=== PATIENT | female | born 1935 | race Caucasian/White ===

== ENCOUNTER 2016-09-15 09:27 | Inpatient (IN) ==
[2016-09-15] MEDS ORDERED: ROCEPHIN 1 GM/NS 1 GM/50 ML IVPB IV ONE (10:22)
[2016-09-15] MEDS ORDERED: NS 1,000 ML IV ONE (10:22)
[2016-09-15] MEDS ORDERED: ZITHROMAX 500 MG/NS 500 MG/250 ML IVPB IV ONE (10:22)
[2016-09-15 10:24] LABS: INR 1.04; PTT 30.3 Seconds (22.0-36.0)
[2016-09-15 10:26] LABS: BASO% 0.2 % (0.0-0.8); EOS# 0.01 X1000 (0.0-0.7); EOS% 0.1 % (0.0-10.0); HEMATOCRIT 39.1 % (37.0-47.0); HEMOGLOBIN 12.7 g/dL (12.0-16.0); IMM GRAN# 0.05 X1000 (0.0-0.04); IMM GRAN% 0.3 % (0.0-0.5); LYMPH# 0.64 X1000 (1.2-3.4); LYMPH% 4.1 % (20.5-51.1); MANUAL DIFF NEEDED? NO; MCH 32.6 PG (27-31); MCHC 32.5 g/dL (33-37); MCV 100.3 FL (81-99); MONO# 1.52 X1000 (0.11-0.59); MONO% 9.8 % (1.7-9.3); MPV 10.7 FL (7.4-10.4); NEUT% 85.5 % (42.2-75.2); PLT 275 X1000 (130-400)
[2016-09-15] MEDS ORDERED: XOPENEX NEB INH ONE (10:28)
[2016-09-15 10:30] LABS: CALCIUM 9.6 mg/dL (8.8-10.2); MAGNESIUM 1.4 mg/dL (1.5-2.7); POTASSIUM 4.5 mmol/L (3.5-5.1); TOTAL BILIRUBIN 0.6 mg/dL (0.20-1.00)
[2016-09-15] MEDS ORDERED: NS NEB INH SCH (10:30)
[2016-09-15 10:46] LABS: BLOOD TYPE ARTERIAL; PCO2(98.6) 43 mmHg (35-45); PO2(98.6) 85 mmHg (60-100); SAMPLE BLOOD; pH(98.6) 7.24 (7.35-7.45)
[2016-09-15 10:47] LABS: ALLEN TEST YES; BE -8.6 mmoll (-3.0-3.0); DRAW SITE L RADIAL; METHB 0.8 % (0.0-1.5); MODALITY CANNULA; O2(CT) 15.9 mL/dL (15.0-23.0); SAO2 99.5 % (95.0-100.0); THB 11.8 g/dL (11.5-17.4)
[2016-09-15 10:53] LABS: CK INDEX 1.1 (0.0-2.5); CK-MB 2.91 ng/mL (0.0-5.0)
--- NOTE | 2016-09-15 11:22 | Diag Imaging Result Document ---
PROCEDURE NAME: CHEST-2 VIEWS - 09/15/2016 FRONTAL AND LATERAL CHEST, TWO VIEWS: COMPARISON: 03/28/2015 FINDINGS: Poor inspiratory effort. The heart is borderline mildly prominent. There is basilar atelectasis or infiltrates. Findings could even represent fibrosis. No effusions. IMPRESSION: 1. Increased markings in the lung bases representing atelectasis, infiltrates, or fibrosis. 2. Mild pulmonary edema.
--- NOTE | 2016-09-15 12:44 | PROVIDER DOCUMENTATION ---
This chart was entered by Denise Cowan Scribe, acting as scribe for Cornelius Brar MD. HPI-Respiratory General - General Chief Complaint: Possible Sepsis-D Stated Complaint: SOB Time Seen by Provider: 09/15/16 10:15 Source: patient Allergies/Adverse Reactions: Patient Allergies Allergy/AdvReac Type Severity Reaction Status Date / Time latex Allergy RASH Verified 09/15/16 09:48 povidone-iodine Allergy RASH Verified 09/15/16 09:48 [From Betadine] soap * [From Betadine] Allergy RASH Verified 09/15/16 09:48 Sulfa (Sulfonamide Allergy RASH Verified 09/15/16 09:48 Antibiotics) Home Medications: Home Medication List Medication Instructions Recorded Confirmed Last Taken Type ATORVAstatin [Lipitor] 40 mg PO QHS 10/15/14 09/15/16 09/14/16 19:00 History Carvedilol 6.25 mg PO BID 10/15/14 09/15/16 09/15/16 08:00 History Isosorbide Mononitrate E.r. [Imdur] 30 mg PO DAILY 10/15/14 09/15/16 09/15/16 08 :00 History Spironolactone 25 mg PO DAILY 10/15/14 09/15/16 09/15/16 08:00 History Ticagrelor [Brilinta] 90 mg PO BID 10/15/14 09/15/16 09/15/16 08:00 History Aspirin 81 mg PO DAILY #30 chewtab 10/25/14 09/15/16 09/15/16 08:00 Rx Acetaminophen with Codeine 1 each PO Q6HR PRN 09/15/16 09/15/16 09/15/16 08:00 History [Acetaminophen-Cod #4 Tablet] Glipizide 5 mg PO 09/15/16 09/14/16 19:00 History Iron Carbonyl/Vit C/Vit B12/FA 1 each PO DIRECTED 09/15/16 09/15/16 Unknown History [Icar-C Plus] Lorazepam [Ativan] 0.5 mg PO TID PRN 09/15/16 09/15/16 09/15/16 08:00 History Nitroglycerin Sl [Nitroglycerin] 0.4 mg SL PRN PRN 09/15/16 09/15/16 Unknown History - History of Present Illness-Resp Nature of Presenting Problem: Pt is 80 y/o F presents to the ED via EMS with SOB, fatigue, cough and weakness. 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 Pt states the symptoms have been present for one week. Pt states green sputum with cough. Pt states recently seeing PCP and PCP increased diabetic meds. Pt denies F. Quality of Pain: reports: aching Severity in ED: reports: mild Onset/Duration: reports: 1 week ago Timing: reports: still present Exposure: reports: unknown cause Cough Quality/Degree: reports: moderate, productive cough, sputum (green) Current Respiratory Medication Therapy: Initiated see nurses note Modifying Factors: improves with: nothing Associated Symptoms: reports: cough, shortness of breath, other (weakness and fatigue). denies: chest pain/soreness, dizziness, earache, facial pain, fever/ chills, flu-like symptoms, headache, heart racing, hurts to breathe, hyperventilating, lightheadedness, muscle/bodyaches, nasal congestion, nasal drainage, sinus pain, short of breath, sore throat, sweaty, wheezing Similar Symptoms Previously?: Yes Recently seen or treated by another doctor?: Yes (Dr. Tony ) Review of Systems - Adult - REVIEW OF SYSTEMS - ADULT Constitutional: reports: fatique. denies: chills, fever Eyes: reports: no symptoms reported Ears, Nose, Mouth & Throat: denies: ear pain, sinus problem, nose pain, throat pain Cardiovascular: reports: irregular heart rate (tachy). denies: chest pain, heart murmur Respiratory: reports: cough, shortness of breath. denies: wheezing Gastrointestinal: reports: no symptoms reported Genitourinary: reports: no symptoms reported Musculoskeletal: reports: muscle weakness. denies: bone pain, joint pain, neck pain Integumentary: reports: no symptoms reported Neurological: reports: no symptoms reported Psychiatric: reports: no symptoms reported Endocrine: reports: no symptoms reported Hematologic/Lymphatic: reports: no symptoms reported Allergic/Immunologic: reports: no symptoms reported All Other Systems: Reviewed and Negative Past History - Adult - PAST MEDICAL HISTORY-ADULT Review of Records: reports: Nursing Assessment Review, Medications Reviewed, Social history reviewed & non-contributory. Major Childhood Illnesses: reports: denies history Cardiovascular: reports: cardiac disease, A-Fib, blood clots, HTN, NM (09/21/14) Respiratory: reports: denies history Gastrointestinal: reports: denies history Obstetrical/Gynecological: reports: denies history Genitourinary: reports: denies history Musculoskeletal: reports: denies history Neurological: reports: denies history Psychiatric: reports: anxiety Endocrine/Immune: reports: Diabetes Other Conditions: reports: denies history - PRIOR SURGERIES/PROCEDURES Surgical/Procedure History: reports: cardiac stent (09/2014), hysterectomy, back/ neck (back) - PRIOR HOSPITALIZATIONS Prior Hospitalizations: reports: for other non-related - IMMUNIZATION STATUS Childhood Immunizations: See Nurse Assessment Flu Vaccine: See Nurse Assessment - FAMILY HISTORY Family History: reviewed, not pertinent - SOCIAL HISTORY Smoking: denies Substance Use: denies Living Situation: family Physical Exam-General - PHYSICAL EXAM-ADULT Initial Vital Signs Reviewed: Yes - CONSTITUTIONAL General Appearance: alert, other (ill in appearance) - EYES Eyes: PERRL/EOMI - HEAD, EARS, NOSE, MOUTH & THROAT HENMT: normocephalic/atraumatic, other (dry mucous membranes) - NECK Neck: normal inspection - RESPIRATORY Respiratory: chest non-tender, decreased breath sounds (L lung), rhonchi ( bilateral), increased rate - CARDIOVASCULAR Cardiovascular: tachycardia - GASTROINTESTINAL (ABDOMEN) Abdominal Exam: normal bowel sounds, non tender, soft - MUSCULOSKELETAL Back Exam: normal inspection, no CVA tenderness, no vertebral tenderness Extremity: normal range of motion, non-tender, normal inspection. negative: swelling, tenderness - SKIN Integumentary: normal color, normal turgor, warm/dry - NEUROLOGIC Neurologic: grossly normal, no motor/sensory deficits - PSYCHIATRIC Psych/Mental Status: normal mood/affect, oriented x 3 Progress - PLAN OF CARE/RESULTS Progress/Plan/Lab Results: Vital Signs - 8 hr 09/15/16 09:33 09/15/16 09:38 09/15/16 10:49 Temperature 98 F Pulse Rate 106 H 104 H 108 H Respiratory Rate 27 H 26 H 18 Blood Pressure 140/79 140/79 O2 Sat by Pulse Oximetry 92 L 93 L 95 09/15/16 12:13 Temperature Pulse Rate 87 Respiratory Rate 33 H Blood Pressure 116/68 O2 Sat by Pulse Oximetry 94 L Laboratory Results - last 24 hr 09/15/16 09/15/16 09/15/16 09:49 09:49 09:49 WBC 15.51 H RBC 3.90 L Hgb 12.7 Hct 39.1 MCV 100.3 H MCH 32.6 H MCHC 32.5 L RDW Std Deviation 12.2 Plt Count 275 MPV 10.7 H Immature Gran % (Auto) 0.3 Neut % (Auto) 85.5 H Lymph % (Auto) 4.1 L [place] % (Auto) 9.8 H Eos % (Auto) 0.1 Baso % (Auto) 0.2 Immature Gran # (Auto) 0.05 H Neut # (Auto) 13.26 H Lymph # (Auto) 0.64 L [place] # (Auto) 1.52 H Eos # (Auto) 0.01 Baso # (Auto) 0.03 PT INR PTT (Actin FS) D-Dimer 0.68 H Specimen Type Sample Site pH pCO2 pO2 HCO3 Base Excess Oxyhemoglobin ABG O2 Sat (Calculated) ABG O2 Saturation ABG Carboxyhemoglobin ABG Methemoglobin Josr Test A-a O2 Difference Total Hemoglobin Lactate Liter Flow Blood Gas Modality FiO2 % Sodium 131 L Potassium 4.5 Chloride 92 L Carbon Dioxide 17 L Anion Gap 22 BUN 51 H Creatinine 2.9 H Estimated GFR/1.73 m2 16 BUN/Creatinine Ratio 18 Glucose 254 H Calculated Osmolality 285 Calcium 9.6 Magnesium 1.4 L Total Bilirubin 0.60 AST 17 ALT 8 L Alkaline Phosphatase 109 H Creatine Kinase 255 H Creatine Kinase Index 1.1 CK-MB (CK-2) 2.91 Troponin T Ifr-Q-Bdhbdcvwqgv Pept Total Protein 8.0 Albumin 4.0 Globulin 4.0 Albumin/Globulin Ratio 1.0 Plasma Lactate Acetone Level 09/15/16 09/15/16 09/15/16 09:49 09:49 09:49 WBC RBC Hgb Hct MCV MCH MCHC RDW Std Deviation Plt Count MPV Immature Gran % (Auto) Neut % (Auto) Lymph % (Auto) [place] % (Auto) Eos % (Auto) Baso % (Auto) Immature Gran # (Auto) Neut # (Auto) Lymph # (Auto) [place] # (Auto) Eos # (Auto) Baso # (Auto) PT 11.0 INR 1.04 PTT (Actin FS) 30.3 D-Dimer Specimen Type Sample Site pH pCO2 pO2 HCO3 Base Excess Oxyhemoglobin ABG O2 Sat (Calculated) ABG O2 Saturation ABG Carboxyhemoglobin ABG Methemoglobin Josr Test A-a O2 Difference Total Hemoglobin Lactate Liter Flow Blood Gas Modality FiO2 % Sodium Potassium Chloride Carbon Dioxide Anion Gap BUN Creatinine Estimated GFR/1.73 m2 BUN/Creatinine Ratio Glucose Calculated Osmolality Calcium Magnesium Total Bilirubin AST ALT Alkaline Phosphatase Creatine Kinase Creatine Kinase Index CK-MB (CK-2) Troponin T < 0.010 Non-Q-Pciumjlslld Pept 513 H Total Protein Albumin Globulin Albumin/Globulin Ratio Plasma Lactate Acetone Level 09/15/16 09/15/16 09/15/16 09:49 09:49 10:35 WBC RBC Hgb Hct MCV MCH MCHC RDW Std Deviation Plt Count MPV Immature Gran % (Auto) Neut % (Auto) Lymph % (Auto) [place] % (Auto) Eos % (Auto) Baso % (Auto) Immature Gran # (Auto) Neut # (Auto) Lymph # (Auto) [place] # (Auto) Eos # (Auto) Baso # (Auto) PT INR PTT (Actin FS) D-Dimer Specimen Type ARTERIAL Sample Site L RADIAL pH 7.24 L pCO2 43 pO2 85 HCO3 18.2 L Base Excess -8.6 L Oxyhemoglobin 95.2 ABG O2 Sat (Calculated) 15.9 ABG O2 Saturation 99.5 ABG Carboxyhemoglobin 3.50 H ABG Methemoglobin 0.8 Josr Test YES A-a O2 Difference 61.0 Total Hemoglobin 11.8 Lactate 0.80 Liter Flow 2.0 Blood Gas Modality CANNULA FiO2 % 28.0 Sodium Potassium Chloride Carbon Dioxide Anion Gap BUN Creatinine Estimated GFR/1.73 m2 BUN/Creatinine Ratio Glucose Calculated Osmolality Calcium Magnesium Total Bilirubin AST ALT Alkaline Phosphatase Creatine Kinase Creatine Kinase Index CK-MB (CK-2) Troponin T Woe-L-Mdbedacprtv Pept Total Protein Albumin Globulin Albumin/Globulin Ratio Plasma Lactate 1.6 Acetone Level NEGATIVE Orders Category Date Time Status Cardiac Monitoring DIRECTED Care 09/15/16 09:35 Active Fingerstick Blood Sugar [FSBS/Accucheck Result] NOW Care 09/15/16 10:58 Active Oxygen Therapy- ED Nursing DIRECTED Care 09/15/16 09:35 Active Saline Loc NOW Care 09/15/16 09:35 Active CHEST-2 VIEWS [RAD] Stat Exams 09/15/16 09:35 Draft ABG [RESP] Routine Lab 09/15/16 10:35 Completed ACETONE SERUM [CHEM] Stat Lab 09/15/16 09:49 Completed BLOOD CULTURE [BLDCUL] Stat Lab 09/15/16 09:43 Results CBC WITH ELECTRONIC DIFF [HEME] Stat Lab 09/15/16 09:49 Completed CK PROFILE [SP CHEM] Stat Lab 09/15/16 09:49 Completed COMPREHENSIVE METABOLIC PANEL [CHEM] Stat Lab 09/15/16 09:49 Completed D-DIMER [CHEM] Stat Lab 09/15/16 09:49 Completed LACTATE, PLASMA [CHEM] Stat Lab 09/15/16 09:49 Completed MAGNESIUM [CHEM] Stat Lab 09/15/16 09:49 Completed PRO B-NATRIURETIC PEPTIDE Stat Lab 09/15/16 09:49 Completed PROTIME WITH INR [COAG] Stat Lab 09/15/16 09:49 Completed PTT [COAG] Stat Lab 09/15/16 09:49 Completed TROPONIN T Stat Lab 09/15/16 09:49 Completed URINALYSIS W/POSS RFLX CULT [URINALYSIS] Stat Lab 09/15/16 11:18 Uncollected 0.9% Sodium Chloride Inj [Ns] 1,000 ml Med 09/15/16 10:22 Discontinued IV 999 mls/hr Azithromycin 500 mg/Ns [Zithromax 500 mg/Ns] Med 09/15/16 10:22 Discontinued 500 mg in 250 ml IV NOW CefTRIAXONE 1 GM/NS [Rocephin 1 gm/Ns] Med 09/15/16 10:22 Discontinued 1 gm in 50 ml IV NOW Levalbuterol Neb [Xopenex Neb] Med 09/15/16 10:28 Discontinued 1.25 mg INH NOW ONE Sodium Chloride 0.9% Neb [Ns Neb] Med 09/15/16 10:30 Active 5 ml INH DIRECTED Aerosol Treatments Routine Oth 09/15/16 10:28 Active Aerosol Treatments Stat Oth 09/15/16 10:28 Active EKG [EKG] Stat Ther 09/15/16 09:35 Ordered Transfer/Admit Order [TRANSFER] Routine Transfer 09/15/16 12:13 Ordered notified seferino that mauro requests pt remains at [facility]. Result Diagrams: 09/15/16 09:49 09/15/16 09:49 - EKG 1 Time of EKG reading by physician:: 09:34 EKG Read and Signed by:: Julius Jones EKG Interpretation (*Must complete 3 of following elements*): Abnormal Rate: 105 Rhythm: sinus tachycardia Comments: otherwise normal ECG - XRAY 1 XRAY Study: Chest Impression: Abnormal XRAY Interpretation: base atelectasis vs fibrosis or small infiltrates. mild pulm edema - CONSULTS/PCP/HOSPITALIST Notification #1 *Consult/PCP/Hospitalist*: Dr. Bowen Time Discussed: 11:58 (Dr. Bowen states consult with Dr. Tony about admit of Pt at [facility].) Reason/Comments: Dr. Brar consults with Dr. Bowen about admit of Pt. Consult Disposition: other #2 Consult: Dr. Tony Time Discussed: 12:01 (Dr. Tony states Pt can stay at [facility].) Reason/Comments: Dr. Brar consults with Dr. Tony about admit of Pt at [facility]. Consult Disposition: other Departure - Departure Time of Disposition Decision: 12:00 DIAGNOSIS: Pneumonia Qualifiers: Pneumonia type: due to unspecified organism Laterality: bilateral Lung location : lower lobe of lung Qualified Code(s): J18.9 - Pneumonia, unspecified organism UTI (urinary tract infection) Qualifiers: Urinary tract infection type: acute cystitis Hematuria presence: with hematuria Qualified Code(s): N30.01 - Acute cystitis with hematuria Disposition: ADMITTED INPATIENT 09 Certified Medical Emergency: Emergent Condition: Stable - Critical Care Note This patient required my direct & personal management of CC.: Yes Total Time (mins): 35 Critical Care Statement: This patient required my direct personal management to treat or rule out processes, the absence of which, could potentiallly result in sudden, clinically significant life or limb threatening deterioration. This chart was documented by the indicated scribe, (Denise Cowan, Pb) and accurately reflects the services I performed and decisions made by me, Joy Brar MD, as attested by the provider's signature.
[2016-09-15] MEDS ORDERED: ATIVAN PO PRN (12:58)
[2016-09-15] MEDS ORDERED: ZOFRAN IV PRN (12:58)
[2016-09-15] MEDS ORDERED: ICAR-C PLUS PO SCH (12:58)
[2016-09-15] MEDS ORDERED: NITROGLYCERIN SL PRN (12:58)
[2016-09-15] MEDS: TYLENOL WITH CODEINE #3 PO PRN ×2 (14:33→23:22)
[2016-09-15] MEDS: NS 1,000 ML IV SCH (14:34)
[2016-09-15] MEDS: XOPENEX NEB INH SCH (16:23)
[2016-09-15] MEDS ORDERED: MAGNESIUM SULFATE 2 GM/S.W.I. 2 GM/50 ML IVPB IV ONE (16:56)
[2016-09-15] MEDS ORDERED: PNEUMOVAX 23 IM ONE (18:20)
--- NOTE | 2016-09-15 19:52 | HISTORY AND PHYSICAL ---
PRIMARY CARE PROVIDER: Dr. Mauricio Tony. CHIEF COMPLAINT: Shortness of breath. HISTORY OF PRESENT ILLNESS: Ms. Anaid Butler is a 80-year-old female who is in no acute distress. She does have a medical history of systolic congestive heart failure, CKD stage 3, coronary artery disease, diabetes mellitus type 2, history of PE who presents with complaints of cough for 1 week now. Has associated productive yellow green phlegm, fever and chills that have been intermittent, positive wheezing, weakness. She fell this morning. States that her knees buckled underneath. She has also stated that her hoarseness of her throat started 1 week ago at the same time she started her cough. She has been admitted to the medical floor. Chest x- ray revealed bilateral infiltrates with some pulmonary edema but the lab work appears that she has some ANA on CKD that looks intravascularly dry. She does have an elevated white blood cell count. She will be on 2 gram-negative coverage antibiotics. Lactate is normal. She does have some metabolic acidosis. PAST MEDICAL HISTORY: Chronic kidney disease stage 3. Systolic congestive heart failure, myocardial infarction with coronary artery disease status post stent placement. Hypertension. Diabetes mellitus type 2 on oral medications. 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 Iron deficiency anemia. SURGICAL HISTORY: Cardiac stents in 2015, bilateral hip placement, hysterectomy , back surgery x4, neck surgery x1, left foot surgery. SOCIAL HISTORY: Denies tobacco, alcohol or illicit drug use. She lives with 2 sons. FAMILY HISTORY: Father had an FL. Brothers had FL. Mom had some sort of female cancer and she had a sister had a blood clot that killed her. REVIEW OF SYSTEMS: Fourteen point review of systems were complete and all were negative except for those mentioned in above HPI. ALLERGIES: Latex, iodine, sulfa. HOME MEDICATIONS: Tylenol #3 one tab p.o. every 6 hours as needed. Aspirin 81 mg p.o. daily. Lipitor 40 mg p.o. nightly. Coreg 6.25 mg p.o. twice daily. Glipizide 5 mg p.o. Icar Plus 1 tab p.o. daily. Imdur 30 mg p.o. daily. Ativan 0.5 mg p.o. t.i.d. as needed. Nitroglycerin 0.4 sublingual as needed. Spironolactone 25 mg p.o. daily. Brilinta 90 mg p.o. twice daily. LABORATORY DATA: White blood cells 15,000, hemoglobin 12, hematocrit 39, platelet count 275,000. INR 1.04. PTT is 30.3. D-dimer 0.68. ABGs on 2 L nasal cannula pH 7.24, pCO2 43., PO2 85, bicarb 18, base excess negative 8, saturation 95%. Lactate 0.8. Sodium 131, potassium 4.5, BUN 51, creatinine is 2.9. Glucose 254. Magnesium 1.4. Bilirubin 0.6. AST 17, ALT 8. CK 255. Troponin is negative. ProBNP is 513. Plasma lactate is 1.6. Acetone negative. IMAGING: Chest x-ray: Increased markings in the lung bases representing atelectasis, infiltrates, fibrosis and mild pulmonary edema. PHYSICAL EXAMINATION: VITAL SIGNS: Temperature is 97.3 degrees, heart rate 83, respiratory rate 20, blood pressure 125/63, O2 saturation 94% on 2 L nasal cannula. 173 pounds. Her BMI is 28.1. GENERAL: Ms. Anaid Butler is a ill-appearing 80-year-old female. She is able to answer questions appropriately. No acute distress, just some shortness of breath. HEENT: Atraumatic, normocephalic. Pupils equal, round, reactive to light. Extraocular movements intact. Mucous membranes dry. NECK: No JVD or carotid bruits noted. CARDIOVASCULAR: S1, S2. Regular rate and rhythm. No rubs, gallops, murmurs. PULMONARY: Clear to auscultate in the upper lobes, decreased with mild crackles in the bases. No accessory muscle use. Mild work of breathing. Currently on 2 L nasal cannula with a hoarse throat. SKIN: Warm, dry, intact. GI: Soft, nontender, nondistended. Positive bowel sounds x4. NEUROLOGIC: Alert and oriented x4. Moves all extremities equally ASSESSMENT AND PLAN: 1. Community-acquired pneumonia. She will be on azithromycin and Rocephin. We will do nebulizers, send for a sputum culture. Turn, cough, and deep breathe exercises. 2. Systolic congestive heart failure possibly acute on chronic. She has ANA and she looks intravascularly dry so we will go ahead and do IV saline at 75 an hour for now and monitor daily. We will continue will continue home medications except for her spironolactone or any diuretic type medications given her ANA. 3. Coronary artery disease status post FL, status post stents. Continue home medications. 4. History of DVT and PE. Continue Brilinta. We will also do heparin 5000 subcu q.12 hours. 5. Diabetes mellitus type 2. Pattern blood glucoses and sliding scale insulin. 6. Iron-deficiency anemia. Continue home medications. 7. Hypertension. Continue home medications. 8. ANA with CKD. Will do urine studies and IV fluids and check a renal artery ultrasound and place a Delgado. Dictated by SHEREE Hagan for Brandon Bowen MD cc: SHEREE Hagan MD Michael Putman, MD pt examined, arely give gentle hydration and follow closely, likely pneumonia more than chf, with ana APENOT MTDD
[2016-09-15 20:57] LABS: UR CREAT RANDOM 78.7 mg/dL (11-20); UR PROT RANDOM 18.3 mg/dL
[2016-09-15] MEDS: COREG PO SCH (23:22)
[2016-09-15] MEDS: LIPITOR PO SCH (23:22)
[2016-09-15] MEDS: BRILINTA PO SCH ×2 (23:22→23:49)
[2016-09-15] MEDS: HEPARIN SUBQ SCH (23:22)
[2016-09-15] MEDS: HUMULIN R SUBQ SCH (23:23)
[2016-09-16] MEDS: XOPENEX NEB INH SCH ×5 (00:01→19:43)
[2016-09-16 00:24] LABS: ALLEN TEST YES; BE -10.2 mmoll (-3.0-3.0); BLOOD TYPE ARTERIAL; DRAW SITE R RADIAL; METHB 2.4 % (0.0-1.5); PO2(98.6) 73 mmHg (60-100); SAMPLE BLOOD; SAO2 94.4 % (95.0-100.0); THB 11.7 g/dL (11.5-17.4)
[2016-09-16 00:26] LABS: MODALITY VENTIMASK; PCO2(98.6) 62 mmHg (35-45); pH(98.6) 7.11 (7.35-7.45)
[2016-09-16 02:33] LABS: URINE CULTURE NEEDED? NO; URINE MICRO REVIEW NEEDED? NO; URINE SOURCE CLEAN CATCH
[2016-09-16] MEDS: NS 1,000 ML IV SCH ×2 (02:33→02:34)
[2016-09-16] MEDS: LIPITOR PO SCH ×2 (02:33→23:36)
[2016-09-16 02:35] LABS: BILIRUBIN URINE NEGATIVE (NEGATIVE); BLOOD URINE NEGATIVE (NEGATIVE); COLOR YELLOW; GLUCOSE URINE NEGATIVE (NEGATIVE); LEUKOCYTES URINE NEGATIVE (NEGATIVE); NITRITE URINE NEGATIVE (NEGATIVE); PROTEIN URINE NEGATIVE (NEGATIVE); SP GRAVITY URINE 1.015; TURBIDITY URINE HAZY (CLEAR); UROBILINOGEN URINE NORMAL (NORMAL)
[2016-09-16 02:36] LABS: UR EPITHELIAL CELLS <10 /HPF (<10); URINE BACTERIA NEGATIVE /HPF; URINE RBC <10 /HPF (<10); URINE WBC <10 /HPF (<10)
[2016-09-16 05:48] LABS: MANUAL DIFF NEEDED? NO
[2016-09-16 05:51] LABS: BASO% 0.2 % (0.0-0.8); HEMATOCRIT 35.5 % (37.0-47.0); HEMOGLOBIN 11.4 g/dL (12.0-16.0); IMM GRAN# 0.05 X1000 (0.0-0.04); IMM GRAN% 0.4 % (0.0-0.5); LYMPH# 0.73 X1000 (1.2-3.4); LYMPH% 6.1 % (20.5-51.1); MCH 32.9 PG (27-31); MCHC 32.1 g/dL (33-37); MCV 102.3 FL (81-99); MONO# 1.44 X1000 (0.11-0.59); MPV 10.2 FL (7.4-10.4); NEUT% 81.3 % (42.2-75.2); PLT 243 X1000 (130-400); RBC 3.47 XMIL (4.2-5.4)
[2016-09-16 06:21] LABS: ALBUMIN 3.3 g/dL (3.5-5.0); MAGNESIUM 2.2 mg/dL (1.5-2.7); TOTAL BILIRUBIN 0.35 mg/dL (0.20-1.00); TOTAL PROTEIN 7.2 g/dL (6.3-8.3)
[2016-09-16] MEDS: HUMULIN R SUBQ SCH ×4 (06:41→23:36)
[2016-09-16] MEDS: ASPIRIN PO SCH (09:40)
[2016-09-16] MEDS: IMDUR PO SCH (09:40)
[2016-09-16] MEDS: BRILINTA PO SCH ×2 (09:40→23:38)
[2016-09-16] MEDS: COREG PO SCH ×3 (09:40→23:38)
[2016-09-16] MEDS: ROCEPHIN 1 GM/NS 1 GM/50 ML IVPB IV SCH (09:42)
[2016-09-16] MEDS: HEPARIN SUBQ SCH ×2 (09:43→23:38)
[2016-09-16 12:06] LABS: ALLEN TEST YES; BE -5.3 mmoll (-3.0-3.0); BLOOD TYPE ARTERIAL; DRAW SITE L RADIAL; METHB 1.9 % (0.0-1.5); O2(CT) 14.1 mL/dL (15.0-23.0); PCO2(98.6) 41 mmHg (35-45); PO2(98.6) 87 mmHg (60-100); SAMPLE BLOOD; SAO2 97.4 % (95.0-100.0); THB 10.5 g/dL (11.5-17.4); pH(98.6) 7.31 (7.35-7.45)
[2016-09-16 12:07] LABS: MODALITY CANNULA
[2016-09-16] MEDS: ZITHROMAX 500 MG/NS 500 MG/250 ML IVPB IV SCH (12:18)
--- NOTE | 2016-09-16 15:03 | CONSULTATION ---
DATE OF CONSULTATION: 09/16/2016 REQUESTING PHYSICIAN: Hospitalist Service REASON FOR CONSULTATION: The patient has coronary heart disease, presenting with respiratory symptoms and evaluation is required. HISTORY OF PRESENT ILLNESS: Ms. Butler is a pleasant 80-year-old female who has been followed by the Cardiology Service in the past. At this time, she presented to the emergency room with several days of coughing, having a hoarse voice, bringing up some yellowish phlegm. She has not noticed any fever; however, she has been feeling weak. That bothers her. Upon presentation, they did a chest x-ray that the radiologist on 09/15/2016 reported as mild pulmonary edema and increasing markings in the lungs, representing atelectasis/ infiltrates. Subsequent x-ray has been done today, and the result is pending. The patient's initial ProBNP was 513 which is minimally elevated, normal is up to 450. Her BUN and creatinine were elevated at 51 and 2.9. The patient has been labeled as possibly having heart failure and has been admitted to the hospital for management of what clearly is respiratory infection. She has been started already on some antibiotics of ceftriaxone and azithromycin. The patient denies having any chest pain. No edema. PAST MEDICAL HISTORY: Positive for chronic kidney disease. She has been followed by a specialist. She has history of hypertension for many years. She has diabetes mellitus type 2. She has had previous deep venous thrombosis with pulmonary embolization in the past. The patient has history of heart failure. Back in 2014, she suffered a myocardial infarction. They referred the patient to [facility] where they performed stents to LAD and ramus intermedius. The patient has gastric reflux, history of paroxysmal atrial fibrillation. PAST SURGICAL HISTORY: She had multiple back surgeries. She has had hysterectomy, foot surgery, cataract extraction, and she has suffered broken hips on both sides, the most recent one in 10/2014. SOCIAL HISTORY: She is a . She lives with 2 of her children, she has had a total of 5. She is not a smoker, not a drinker. FAMILY HISTORY: Coronary artery disease in father and brother. REVIEW OF SYSTEMS: The patient has reported chronic back pain in the past. No recent chest pain. No recent changes to her chronic conditions. Review of systems is really noncontributory. Respiratory, cardiovascular, neurologic, orthopedic, metabolic, gastrointestinal , skin, hearing, visual, psychiatric, etc., etc. HOME MEDICATIONS: Glipizide 5 mg daily, Brilinta 90 mg twice a day, spironolactone 25 daily, isosorbide mononitrate 30 mg daily, carvedilol 6.25 twice a day, aspirin 81 mg daily, atorvastatin 40 mg at bedtime, nitroglycerin as needed, iron carbonyl vitamins once a day, Ativan 0.5 mg as needed. ALLERGIES: Reported to latex, Betadine and sulfa drugs. PHYSICAL EXAMINATION: Blood pressure is 135/63, pulse 91, respirations 20, temperature 98.9. She is awake, alert and oriented, in no distress, with a hoarse voice, coughing intermittently. Neck veins are not distended. No cervical bruit. Chest shows diminished breath sounds with some rhonchi. Heart sounds are regular and rhythmic. I do not hear any gallop or murmur. Abdomen is nontender, soft. No masses, no hepatomegaly. Extremities showed very good pulses. Extremities are warm. Perfusion of the limbs is normal. Neurologic: Follows commands, moves all 4 extremities. Alert and oriented x3. DIAGNOSTIC DATA: EKG shows sinus tachycardia without any ischemic changes. Of note, this patient's blood gases that were done earlier today showed a pO2 of 85, pCO2 of 43, pH was 7.24. Subsequently that even got worse with a pH of 7.11 and CO2 of 62 and eventually stabilized with pH of 7.31 and pCO2 of 41. IMPRESSION: 1. The patient presented with a 1-week history of recurrent cough and hoarse voice. This is clearly a respiratory infection. A followup chest x-ray done today shows decreased lung volumes, atelectasis at the level of the right base. There is some cephalization or pulmonary venous hypertension. 2. History of congestive heart failure, chronic systolic. In my opinion, this is stable. Her Pro BNP level was minimally elevated, indicating that this is not in the process of decompensation. 3. History of coronary artery disease, previous stents. 4. History of diabetes mellitus. 5. History of hypertension. RECOMMENDATIONS: I will review echocardiogram that was done earlier. Given her unremarkable EKG and her lack of cardiac symptoms at this point in time, I do not anticipate pursuing any specific cardiac workup. Her symptoms are clearly respiratory, and that needs to be treated. We will be around for further assessment if that is deemed necessary. Consideration might be given at getting a Pulmonary evaluation. Please call us if further assistance is needed. cc: Eusebio Santiago MD [email or web address]
--- NOTE | 2016-09-16 15:50 | ECHO REPORT ---
ORDER DATE: 09/16/2016 INTERPRETING PHYSICIAN: Dr. Santiago REQUESTING PHYSICIAN: CLINICAL INDICATIONS: This is a 80-year-old female with cough, shortness of breath. CHF is suspected. M-MODE MEASUREMENTS: Right ventricle: 2.6 cm. Left ventricle end diastole: 4.9 cm. Left ventricle end systole: 3.5 cm. Posterior wall: 1.9 cm. Interventricular septum: 1.0 cm. Left atrium: 3.3 cm. Aortic root: 3.2 cm. SUMMARY OF 2-DIMENSIONAL IMAGIN. The left ventricular systolic function appears to be overall well preserved. There is a focal area of impairment in the apical septal segment of left ventricle. The global ejection fraction is normal, estimated to be in the range of 55% to 60%. 2. Lateral wall shows normal contractility. Most of the septum is showing good contractility as well as most of the inferior wall. 3. The right ventricle appears to be normal. 4. The left atrium is normal. 5. The mitral annulus shows mild calcification. 6. Pulse wave Doppler of mitral inflow shows reversal of the E and the A wave. 7. Tissue Doppler of septal and lateral mitral annulus averages 5 cm. There is impaired left ventricular relaxation. 8. Color flow mapping of mitral valve indicates mild degree of regurgitation. 9. Aortic valve shows sclerosis of the cusps without stenosis. Color flow mapping indicates mild degree of aortic regurgitation. 10.Tricuspid valve shows mild degree of regurgitation. 11.The inferior vena cava is not dilated. 12.The pulmonary pressure is estimated at 50 mmHg. 13.Pulmonic valve looks normal. Color flow mapping indicates mild degree of regurgitation. 14.There is no pericardial effusion, mass or thrombus. CONCLUSIONS: 1. Overall well preserved left ventricular systolic function with ejection fraction of 55% to 60%. Focal apical septal hypokinesis consistent with history of coronary artery disease. 2. Sclerosis of the aortic valve with mild degree of regurgitation. No stenosis. 3. Mild calcification of the mitral annulus with mild degree of mitral regurgitation. There is impaired left ventricular relaxation. There is pulmonary hypertension estimated at 50 mmHg. Clinical correlation is recommended. cc: MD Christy Zaman CRNP
[2016-09-16] MEDS: TYLENOL PO PRN (16:20)
--- NOTE | 2016-09-16 16:38 | Diag Imaging Result Document ---
PROCEDURE NAME: CHEST-1 VIEW - 09/16/2016 PORTABLE CHEST: COMPARISON: 09/15/2016. FINDINGS: There is increased atelectasis at the right base. Underlying right pleural effusion is not excluded. There is perihilar marking prominence on the left similar to the previous exam. There is no pneumothorax seen. Heart size appears grossly stable. IMPRESSION: Increased atelectasis at right base. Underlying right pleural effusion is not excluded. Stable perihilar marking prominence on the left.
--- NOTE | 2016-09-16 16:42 | PROGRESS NOTE ---
DATE: 09/16/2016 SUBJECTIVE: Ms. Anaid Butler is a 80-year-old female who is in no acute distress at this time, but apparently through the night she had some confusion and lethargy. ABGs revealed that she had mixed acidosis and was placed on BiPAP. Her IV fluids were stopped. An echocardiogram has been ordered. She has been replaced back on nasal cannula and is much more alert. She denies any pain. She states or shortness of breath feels better. PHYSICAL EXAMINATION: Vital Signs: Temperature is 98.9 degrees, heart rate 88, respiratory rate 18, blood pressure 135/63, O2 saturation 96% on 3 L nasal cannula. Cardiovascular: S1, S2. Regular rate and rhythm. No rubs, gallops, murmurs. Pulmonary: With bilateral breath sounds. She has expiratory wheezes to the middle and lower bases to posterior auscultation. Currently on 3 L nasal cannula. Still with a hoarse voice. No accessory muscle use or work of breathing noted. GI: Soft, nontender, nondistended. Positive bowel sounds x4. Extremities: Trace edema in lower extremities. There are +2 dorsalis and radial pulses. LABORATORY DATA: White blood cells 11,000, hemoglobin 11, hematocrit 35, platelet count 243,000. ABG on 3 L nasal cannula, 7.31 pH, pCO2 41, PO2 87, bicarb 20, base excess -5, saturation 94%. Lactate is 0.9. Sodium 135, potassium 5.0, BUN 55, creatinine is 2.5, glucose 196. Urinalysis negative. IMAGING: Renal ultrasound has been performed but no reading on it yet. Chest x-ray has not been read but it has pulmonary edema and infiltrates in the bases. ASSESSMENT AND PLAN: 1. Community-acquired pneumonia. Continue with antibiotic therapy, nebulizers. Have been unable to obtain a sputum culture. 2. Systolic congestive heart failure. Possibly acute on chronic. Awaiting for echocardiogram. IV fluids have been stopped for now. 3. Coronary artery disease, status post myocardial infarction, status post stents. Continue home medications. 4. Mixed acidosis. Somewhat resolved. She received BiPAP throughout the night. 5. History of deep vein thrombosis, pulmonary emboli. Continue Brilinta and subcutaneous heparin. 6. Diabetes mellitus type 2. Pattern blood glucoses and sliding scale insulin. 7. Iron-deficiency anemia. Continue home medications. 8. Hypertension. Continue home medications. 9. Acute kidney injury with chronic kidney disease stage 3. Somewhat improving. 10. Will consult cardiology for possible acute on chronic systolic congestive heart failure. Dictated by SHEREE Hagan for Brandon Bowen MD cc: SHEREE Hagan MD
--- NOTE | 2016-09-16 17:54 | Diag Imaging Result Document ---
PROCEDURE NAME: CHEST-2 VIEWS - 09/16/2016 CHEST 2 VIEWS: COMPARISON: Compared with the earlier portable exam of the same day. FINDINGS: There is atelectasis at the right base which is decreased compared to previous exam. There is no substantial right pleural effusion seen. There has been apparent decrease in perihilar infiltrate or edema on the left. There are no other acute changes identified. IMPRESSION: Some decrease in right basilar atelectasis compared to prior. No substantial right pleural effusion seen. Apparent decrease in perihilar infiltrate or edema on the left.
--- NOTE | 2016-09-16 19:19 | Diag Imaging Result Document ---
PROCEDURE NAME: US RENAL 2 (RETROPER) COMPLETE - 09/16/2016 BILATERAL RENAL ULTRASOUND: FINDINGS: The right kidney measures 10.6 x 5.1 x 6.2 cm in size. The left kidney measures 11 x 4.7 x 4.8 cm in size. There is no renal mass identified. There is no hydronephrosis identified. The urinary bladder is not distended and is not well visualized. IMPRESSION: No visible renal abnormality. No hydronephrosis.
[2016-09-17] MEDS: XOPENEX NEB INH SCH ×4 (03:10→19:56)
[2016-09-17 06:04] LABS: MANUAL DIFF NEEDED? NO
[2016-09-17 06:12] LABS: BASO% 0.2 % (0.0-0.8); EOS# 0.08 X1000 (0.0-0.7); EOS% 0.8 % (0.0-10.0); HEMATOCRIT 30.3 % (37.0-47.0); HEMOGLOBIN 9.6 g/dL (12.0-16.0); IMM GRAN# 0.07 X1000 (0.0-0.04); IMM GRAN% 0.7 % (0.0-0.5); LYMPH# 0.62 X1000 (1.2-3.4); LYMPH% 6.1 % (20.5-51.1); MCH 32.8 PG (27-31); MCHC 31.7 g/dL (33-37); MCV 103.4 FL (81-99); MONO# 1.26 X1000 (0.11-0.59); MONO% 12.4 % (1.7-9.3); MPV 10.1 FL (7.4-10.4); NEUT% 79.8 % (42.2-75.2); PLT 214 X1000 (130-400); RBC 2.93 XMIL (4.2-5.4)
[2016-09-17] MEDS: HUMULIN R SUBQ SCH ×3 (06:18→21:45)
[2016-09-17 06:21] LABS: CALCIUM 8.9 mg/dL (8.8-10.2); MAGNESIUM 2.4 mg/dL (1.5-2.7); POTASSIUM 4.7 mmol/L (3.5-5.1); TOTAL BILIRUBIN 0.42 mg/dL (0.20-1.00); TOTAL PROTEIN 6.4 g/dL (6.3-8.3)
--- NOTE | 2016-09-17 06:54 | EKG Report ---
Test Performed on : 09/15/2016 09:34:31 AM Test Reason : CP Blood Pressure : / mmHG Vent. Rate : 105 BPM Atrial Rate : 105 BPM P-R Int : 166 ms QRS Dur : 076 ms QT Int : 326 ms P-R-T Axes : 047 -16 070 degrees QTc Int : 430 ms Sinus tachycardia. Otherwise normal ECG When compared with ECG of 28-MAR-2015 13:22, No significant change was found Unconfirmed Result
[2016-09-17] MEDS: IMDUR PO SCH (09:28)
[2016-09-17] MEDS: ASPIRIN PO SCH (09:28)
[2016-09-17] MEDS: BRILINTA PO SCH ×2 (09:28→21:22)
[2016-09-17] MEDS: ROCEPHIN 1 GM/NS 1 GM/50 ML IVPB IV SCH (09:28)
[2016-09-17] MEDS: HEPARIN SUBQ SCH ×2 (09:28→21:25)
[2016-09-17] MEDS: COREG PO SCH ×2 (09:28→21:22)
[2016-09-17] MEDS: ICAR-C PLUS PO SCH (09:28)
--- NOTE | 2016-09-17 13:22 | PROGRESS NOTE ---
DATE: 09/17/2016 This is a 81-year-old who was in no acute distress, but she presented with shortness of breath. Did have a medical history of systolic congestive heart failure, chronic kidney disease stage 3, coronary artery disease, diabetes mellitus type 2 and history of PE who presented with complaints of a cough for a week, associated productive yellow green phlegm, fever and chills have been intermittent. Positive wheezing. The patient admitted with community-acquired pneumonia. MEDICAL HISTORY: 1. History of systolic congestive heart failure acute on chronic. 2. Acute kidney injury on chronic kidney disease. 3. History of coronary artery disease status post UT, status post stents. 4. History DVT and PTE. History diabetes mellitus and iron deficiency anemia. The patient feels better, she says she feels better than yesterday. Comfortable, breathing comfortably. PHYSICAL EXAMINATION: Vital Signs: Temperature 98.2 degrees, pulse 92, respirations 16, blood pressure 126/62. HEENT: Pupils are equal, round. Lungs: Clear in all lung suggs anterior and lateral. Cardiovascular: Regular rhythm and rate without murmur or S3. Abdomen: Soft. Skin: Warm and dry. Urine output 2600 mL. LAB: White count 06531, hematocrit 30, platelet count 214,000, sodium 137, potassium 4.7 chloride 101, bicarb 21, BUN 49, creatinine 1.9, blood sugars 221, 93, 169. Dr. Santiago consulted cardiology. ASSESSMENT AND PLAN: 1. Patient presented with 1-week history of recurrent cough and hoarse voice. It appears more respiratory type irritation. A chest x-ray done showed decreased lung volumes, atelectasis at the level of the right base and some cephalization and pulmonary venous hypertension. She seems to be doing better. Continue present regimen. 2. History of congestive heart failure, chronic systolic which appears to be stable. ProBNP was minimally elevated indicating that it was not in the process of decompensation. 3. History of coronary artery disease. 4. Diabetes mellitus. 5. Hypertension. IMAGIN. Echocardiogram was done on 09/16/2016. Left ventricular systolic function appears to be well- preserved. There is focal area of improvement in apical, septal segment, left ventricle. Global ejection fraction was 55-60%. 2. Lateral wall shows normal contractility. 3. Right ventricle appears to be normal. 4. Left atrium normal. 5. Did not see any significant valvular dysfunction, but she does have impaired left ventricular relaxation. A wave of reversal of the E and A waves. No sign of pericardial effusion. Tricuspid valve with mild degree of regurgitation. Pulmonary pressure was 51 mmHg. She appears to be doing better. REVIEW OF HER ORDERS: She is on ceftriaxone. She is on azithromycin, Brilinta and Lipitor 40 mg a day, Coreg 6.25 mg b.i.d. Her diabetes mellitus blood sugars appear to be improving as far as control and hopefully she is close to going home. cc: Josr Mondragon MD
[2016-09-17] MEDS: ZITHROMAX 500 MG/NS 500 MG/250 ML IVPB IV SCH (13:31)
[2016-09-17] MEDS: TYLENOL WITH CODEINE #3 PO PRN (21:22)
[2016-09-17] MEDS: LIPITOR PO SCH (21:22)
[2016-09-18] MEDS: XOPENEX NEB INH SCH ×4 (03:46→22:50)
[2016-09-18 05:46] LABS: BASO% 0.2 % (0.0-0.8); EOS# 0.11 X1000 (0.0-0.7); EOS% 1.1 % (0.0-10.0); HEMATOCRIT 33.8 % (37.0-47.0); HEMOGLOBIN 10.4 g/dL (12.0-16.0); IMM GRAN% 1.9 % (0.0-0.5); LYMPH# 0.44 X1000 (1.2-3.4); LYMPH% 4.2 % (20.5-51.1); MANUAL DIFF NEEDED? YES; MCH 32.4 PG (27-31); MCHC 30.8 g/dL (33-37); MCV 105.3 FL (81-99); MONO% 11.6 % (1.7-9.3); MPV 10.1 FL (7.4-10.4); PLT 229 X1000 (130-400); RBC 3.21 XMIL (4.2-5.4)
[2016-09-18 06:09] LABS: ALBUMIN 3.1 g/dL (3.5-5.0); CALCIUM 9.6 mg/dL (8.8-10.2); MAGNESIUM 2.5 mg/dL (1.5-2.7); POTASSIUM 5.5 mmol/L (3.5-5.1); TOTAL BILIRUBIN 0.58 mg/dL (0.20-1.00); TOTAL PROTEIN 7.1 g/dL (6.3-8.3)
[2016-09-18] MEDS: HUMULIN R SUBQ SCH ×4 (06:45→21:12)
[2016-09-18 07:05] LABS: BANDS 2 % (0-1); LYMPHS 4 % (21-51); MONO 14 % (1-9)
[2016-09-18] MEDS: HEPARIN SUBQ SCH ×2 (09:48→21:11)
[2016-09-18] MEDS: ROCEPHIN 1 GM/NS 1 GM/50 ML IVPB IV SCH (09:48)
[2016-09-18] MEDS: IMDUR PO SCH (09:49)
[2016-09-18] MEDS: ICAR-C PLUS PO SCH (09:49)
[2016-09-18] MEDS: BRILINTA PO SCH ×2 (09:49→21:11)
[2016-09-18] MEDS: ASPIRIN PO SCH (09:49)
[2016-09-18] MEDS: COREG PO SCH ×2 (09:49→21:11)
[2016-09-18] MEDS: ZITHROMAX 500 MG/NS 500 MG/250 ML IVPB IV SCH (10:43)
[2016-09-18] MEDS: TYLENOL WITH CODEINE #3 PO PRN ×2 (13:48→21:15)
--- NOTE | 2016-09-18 15:14 | PROGRESS NOTE ---
DATE: 09/18/2016 SUBJECTIVE: The patient is sitting up in the bed, in no acute distress. OBJECTIVE: Vital signs: Temperature is 99 degrees, heart rate 98, respirations 20, blood pressure is 162/69, O2 is 98% on 2 L nasal cannula. General: Ms. Butler is a pleasant, 80-year- old female, sitting up in bed, in no acute distress. HEENT: Atraumatic, normocephalic. PERRLA. Neck: Supple. Trachea midline. CV: S1, S2 appreciated. Regular rate and rhythm. Pulmonary: Bilateral breath sounds auscultated. No wheezes noted. No use of accessory muscles or work of breathing. GI: Soft, nontender, nondistended. Positive bowel sounds 4 quadrants. Extremities: Do have trace edema. Bilateral pedal pulses are palpable. Neurologic: No focal deficits noted. LABORATORY DATA: White count 10, hemoglobin 10, hematocrit 33, platelet count is 229,000. Chemistry: Sodium 136, potassium is 5.5, BUN 42, creatinine 1.6, blood glucose is 224. ASSESSMENT AND PLAN: 1. Community-acquired pneumonia. Continue with antibiotics, bronchodilators, and aggressive pulmonary toilet. 2. Systolic congestive heart failure, acute on chronic. Echocardiogram showed an EF of 55 to 60%. 3. Coronary artery disease history, aware. 4. Diabetes mellitus. Continue on sliding scale. 5. Hypertension. Continue with blood pressure medications. 6. Acute kidney injury with chronic kidney disease stage 3. Improving. 7. Hyperkalemia at 5.5. We will get an EKG to evaluate rhythm. Further recommendations to follow physician evaluation. Dictated by SHEREE Abreu for Josr Mondragon MD cc: Josr Mondragon MD
--- NOTE | 2016-09-18 16:06 | EKG Report ---
Test Performed on : 09/18/2016 3:47:12 PM Test Reason : EVAL OF T WAVE Blood Pressure : / mmHG Vent. Rate : 092 BPM Atrial Rate : 092 BPM P-R Int : 156 ms QRS Dur : 076 ms QT Int : 336 ms P-R-T Axes : 038 -18 037 degrees QTc Int : 415 ms Normal sinus rhythm. Minimal voltage criteria for LVH, may be normal variant Borderline ECG When compared with ECG of 15-SEP-2016 09:34, No significant change was found Confirmed by Miroslava COLE, Brayden Kyle ([id number]) on 09/19/2016 6:46:30 AM
[2016-09-18] MEDS: LIPITOR PO SCH (21:11)
[2016-09-19] MEDS: XOPENEX NEB INH SCH ×4 (03:35→20:07)
[2016-09-19 06:04] LABS: BASO% 0.5 % (0.0-0.8); EOS# 0.47 X1000 (0.0-0.7); EOS% 4.9 % (0.0-10.0); HEMATOCRIT 33.3 % (37.0-47.0); HEMOGLOBIN 10.1 g/dL (12.0-16.0); IMM GRAN# 0.41 X1000 (0.0-0.04); IMM GRAN% 4.3 % (0.0-0.5); LYMPH# 0.54 X1000 (1.2-3.4); LYMPH% 5.7 % (20.5-51.1); MANUAL DIFF NEEDED? YES; MCH 31.6 PG (27-31); MCHC 30.3 g/dL (33-37); MCV 104.1 FL (81-99); MONO# 1.19 X1000 (0.11-0.59); MONO% 12.5 % (1.7-9.3); MPV 10.1 FL (7.4-10.4); NEUT% 72.1 % (42.2-75.2); PLT 268 X1000 (130-400)
[2016-09-19 06:14] LABS: ALBUMIN 3.1 g/dL (3.5-5.0); CALCIUM 9.5 mg/dL (8.8-10.2); MAGNESIUM 2.4 mg/dL (1.5-2.7); POTASSIUM 4.7 mmol/L (3.5-5.1); TOTAL BILIRUBIN 0.38 mg/dL (0.20-1.00); TOTAL PROTEIN 6.8 g/dL (6.3-8.3)
[2016-09-19 06:44] LABS: BANDS 4 % (0-1); HYPOCHROM 1+; LYMPHS 4 % (21-51); MONO 6 % (1-9)
[2016-09-19] MEDS: HUMULIN R SUBQ SCH ×5 (07:55→20:58)
[2016-09-19] MEDS: BRILINTA PO SCH ×2 (07:59→20:59)
[2016-09-19] MEDS: COREG PO SCH ×2 (08:00→20:59)
[2016-09-19] MEDS: ICAR-C PLUS PO SCH (08:00)
[2016-09-19] MEDS: ASPIRIN PO SCH (08:00)
[2016-09-19] MEDS: IMDUR PO SCH (08:00)
[2016-09-19] MEDS: HEPARIN SUBQ SCH ×2 (08:00→20:59)
[2016-09-19] MEDS: ROCEPHIN 1 GM/NS 1 GM/50 ML IVPB IV SCH (09:27)
[2016-09-19] MEDS: TYLENOL WITH CODEINE #3 PO PRN (11:04)
[2016-09-19] MEDS: ZITHROMAX 500 MG/NS 500 MG/250 ML IVPB IV SCH (11:57)
--- NOTE | 2016-09-19 16:19 | PROGRESS NOTE ---
DATE: 09/19/2016 SUBJECTIVE: Ms. Butler is feeling better. Doing a little better. She would like to go home with I think home health. [facility] I think is who she had before. OBJECTIVE: Vital signs: She remains afebrile. Temperature 98.3 degrees, pulse 84, respirations 16, blood pressure 172/75, but the range of blood pressures have been 147-172/61-75. Lungs: Clear in all lung suggs. Cardiovascular: Regular rhythm and rate without murmur or S3. Abdomen: Soft. Skin: Warm and dry. : Good urine output. LABORATORY: White count 9550, hematocrit 33, platelet count 268,000. Sodium 138, potassium 4.7, chloride 102, BUN 37, creatinine 1.1, blood sugar 193, 217, 164, 159. ASSESSMENT AND PLAN: 1. Community-acquired pneumonia. Continue antibiotics, bronchodilators, aggressive pulmonary toilet. She has improved quite a bit. I think she will be ready go home on Saturday. 2. Systolic congestive heart failure, acute on chronic. However, I think it is mainly diastolic. Looking back at her echo, her ejection fraction was 55-60%. 3. Coronary artery disease, aware. 4. Diabetes mellitus type 2. 5. Hypertension. 6. Acute kidney injury on chronic kidney disease which is stage 3. This is improved. 7. She presented with hyperkalemia and this has resolved. 8. Her current orders, looks like she is doing well. I will stop her azithromycin. She is on 500 mg IV daily 24 hours, Brilinta 90 mg p.o. b.i.d., Ceftriaxone 1 g q.24 hours. I think we will repeat a chest x-ray tomorrow, check complete blood count and electrolytes. Chest x-ray okay. She had decrease in her basilar atelectasis compared to prior x-rays on the recent film of 09/16/2016. cc: Josr Mondragon MD
--- NOTE | 2016-09-19 16:29 | Diag Imaging Result Doc PS360 ---
EXAM: CHEST-2 VIEWS HISTORY: pneumonia COMPARISON: 09/16/2016. FINDINGS: The lungs are well expanded. The heart is not enlarged. The vessels are not distended. There is an infiltrate in the mid right lung with a small infiltrate and atelectasis in the right base. No pleural effusions. The left lung remains clear. IMPRESSION: Small right-sided infiltrates with basilar atelectasis Electronically signed by Moose Olivo 09/19/2016 4:27 PM
[2016-09-19] MEDS: LIPITOR PO SCH (20:59)
[2016-09-19] MEDS: TYLENOL PO PRN (21:00)
[2016-09-20] MEDS: XOPENEX NEB INH SCH ×4 (03:22→21:53)
[2016-09-20 06:03] LABS: ALBUMIN 2.9 g/dL (3.5-5.0); CALCIUM 9.4 mg/dL (8.8-10.2); MAGNESIUM 2.2 mg/dL (1.5-2.7); POTASSIUM 4.8 mmol/L (3.5-5.1); TOTAL BILIRUBIN 0.3 mg/dL (0.20-1.00); TOTAL PROTEIN 6.8 g/dL (6.3-8.3)
[2016-09-20 06:37] LABS: EOS# 0.66 X1000 (0.0-0.7); HEMOGLOBIN 10.2 g/dL (12.0-16.0); IMM GRAN# 0.56 X1000 (0.0-0.04); IMM GRAN% 5.9 % (0.0-0.5); LYMPH# 0.74 X1000 (1.2-3.4); LYMPH% 7.8 % (20.5-51.1); MANUAL DIFF NEEDED? YES; MCH 32.3 PG (27-31); MCHC 30.9 g/dL (33-37); MCV 104.4 FL (81-99); MONO# 1.01 X1000 (0.11-0.59); MONO% 10.7 % (1.7-9.3); MPV 10.1 FL (7.4-10.4); NEUT% 67.6 % (42.2-75.2); PLT 279 X1000 (130-400); RBC 3.16 XMIL (4.2-5.4)
[2016-09-20 06:42] LABS: BANDS 2 % (0-1); EOS 6 % (1-10); LYMPHS 14 % (21-51); MONO 12 % (1-9)
[2016-09-20] MEDS: HUMULIN R SUBQ SCH ×4 (06:53→23:12)
[2016-09-20] MEDS: TYLENOL WITH CODEINE #3 PO PRN (07:10)
[2016-09-20] MEDS: ROCEPHIN 1 GM/NS 1 GM/50 ML IVPB IV SCH (09:21)
[2016-09-20] MEDS: IMDUR PO SCH (09:22)
[2016-09-20] MEDS: HEPARIN SUBQ SCH ×2 (09:22→23:11)
[2016-09-20] MEDS: ASPIRIN PO SCH (09:22)
[2016-09-20] MEDS: ICAR-C PLUS PO SCH (09:22)
[2016-09-20] MEDS: COREG PO SCH ×2 (09:22→23:11)
[2016-09-20] MEDS: BRILINTA PO SCH ×2 (09:23→23:11)
[2016-09-20] MEDS ORDERED: VANCOMYCIN IV PER PHARMACY MISC SCH (11:30)
--- NOTE | 2016-09-20 12:07 | Diag Imaging Result Doc PS360 ---
CT THORAX W/O CONTRAST - 09/20/[address] dose reduction protocol was used. INDICATION: pneumonia COMPARISON: 03/24/2015 FINDINGS: There is extremely severe coronary artery disease mainly in the left main and circumflex arteries. Heart size is normal. There are some stable appearing layering sludge or small stones in the gallbladder. There is some worsening in the extensive consolidation throughout the right lower lobe, that was present previously back in 2014. Lung volumes are lower. There is also some increasing hazy groundglass atelectasis or infiltrate throughout the lungs diffusely. Stable left adrenal gland nodule. No changes in the upper abdomen. There is a stable compression fracture at T12. IMPRESSION: 1. Worsening in the already extensive consolidation of the right lower lobe. This may represent recurrent pneumonia or aspiration. Follow-up until clear. Other possibilities include a prolonged inflammatory process. 2. Other chronic changes as described above. Electronically signed by Mark Barnett 09/20/2016 12:05 PM
[2016-09-20] MEDS ORDERED: VANCOMYCIN 2,000 MG in NS 500 ML IV ONE (13:00)
--- NOTE | 2016-09-20 14:53 | PROGRESS NOTE ---
DATE: 09/20/2016 SUBJECTIVE: The patient is resting comfortably in bed. She states that she still has a pretty significant cough as well as shortness of breath. OBJECTIVE: Vital Signs: Temperature 98 degrees, blood pressure 167/84, heart rate 88, respirations 17, O2 saturations 95% on 2 L nasal cannula. General: This is an elderly female, lying in bed, in no acute distress. Head: Normocephalic atraumatic. Heart: S1, S2. Normal. Regular rate and rhythm. Lungs: Equal air entry bilaterally. No crackles. No rales. Abdomen: Positive bowel sounds. Soft, nontender, nondistended. Extremities: No edema. No cyanosis. No calf tenderness. Neurologic: The patient is alert and oriented x3. No focal neurologic deficits noted. LABS: White blood cell count 1.4, hemoglobin 10, hematocrit 33, platelets 279, 000. Sodium 138, potassium 4.8, chloride 102, CO2 24, BUN 30, creatinine 1. Glucose 159. Albumin 2.9. ASSESSMENT AND PLAN: 1. Right lung pneumonia. The sputum culture is growing gram-positive cocci. We will add vancomycin to the patient's antibiotic regimen and consult ID. Continue with incentive spirometry and bronchodilator therapy. 2. Uncontrolled hypertension. Will increase the coreg to 12.5mg BID. 3. Severe coronary artery disease. Aware. Continue on the current cardiac medications. 4. Morbid obesity. Aware. 5. Gastrointestinal prophylaxis. We will add omeprazole. 6. DVT prophylaxis. Continue on heparin. cc: Carola Alicia MD MTDD
[2016-09-20] MEDS: TYLENOL PO PRN ×2 (16:48→23:17)
[2016-09-20] MEDS: ZITHROMAX 500 MG/NS 500 MG/250 ML IVPB IV SCH (16:48)
[2016-09-20] MEDS: MIRALAX PO SCH ×2 (16:48→23:11)
[2016-09-20] MEDS: LIPITOR PO SCH (23:12)
[2016-09-20] MEDS: DULCOLAX PR SCH (23:12)
[2016-09-21] MEDS: XOPENEX NEB INH SCH ×4 (03:10→22:33)
[2016-09-21 05:20] LABS: BASO% 0.9 % (0.0-0.8); EOS# 0.66 X1000 (0.0-0.7); EOS% 6.5 % (0.0-10.0); HEMATOCRIT 33.3 % (37.0-47.0); IMM GRAN# 0.64 X1000 (0.0-0.04); IMM GRAN% 6.3 % (0.0-0.5); LYMPH# 0.84 X1000 (1.2-3.4); LYMPH% 8.3 % (20.5-51.1); MANUAL DIFF NEEDED? YES; MCH 31.5 PG (27-31); MONO# 0.93 X1000 (0.11-0.59); MONO% 9.2 % (1.7-9.3); MPV 10.2 FL (7.4-10.4); NEUT% 68.8 % (42.2-75.2); PLT 279 X1000 (130-400); RBC 3.17 XMIL (4.2-5.4)
[2016-09-21 05:30] LABS: ALBUMIN 2.9 g/dL (3.5-5.0); CALCIUM 9.1 mg/dL (8.8-10.2); POTASSIUM 4.8 mmol/L (3.5-5.1); TOTAL BILIRUBIN 0.33 mg/dL (0.20-1.00); TOTAL PROTEIN 7.1 g/dL (6.3-8.3)
[2016-09-21 05:41] LABS: BANDS 12 % (0-1); EOS 4 % (1-10); LYMPHS 4 % (21-51); MONO 6 % (1-9)
[2016-09-21] MEDS: HUMULIN R SUBQ SCH ×4 (06:54→21:42)
[2016-09-21] MEDS: HEPARIN SUBQ SCH ×2 (08:31→21:34)
[2016-09-21] MEDS: BRILINTA PO SCH ×2 (08:31→21:33)
[2016-09-21] MEDS: GLUCOTROL PO SCH (08:31)
[2016-09-21] MEDS: IMDUR PO SCH (08:31)
[2016-09-21] MEDS: MIRALAX PO SCH ×2 (08:31→21:31)
[2016-09-21] MEDS: COREG PO SCH ×2 (08:31→21:33)
[2016-09-21] MEDS: ASPIRIN PO SCH (08:31)
[2016-09-21] MEDS: ICAR-C PLUS PO SCH (08:31)
[2016-09-21] MEDS: PRILOSEC PO SCH (08:37)
[2016-09-21] MEDS: NS NEB INH SCH ×2 (09:30→15:37)
--- NOTE | 2016-09-21 10:26 | CONSULTATION ---
DATE OF CONSULTATION: 09/21/2016 CONCLUSION: The patient is admitted to the hospital with an oxacillin sensitive Staph aureus, right lung pneumonia. RECOMMENDATIONS: I have discontinued the patient's current antibiotics which are Rocephin. Vancomycin and azithromycin. And have started the patient on Ancef in a dose of 2 g IV every 8 hours. DISCUSSION: The patient said approximately 10 days prior to admission, she started having a cough which was productive of yellow sputum and she became more short of breath. She also had fever and chills. In the hospital her CT scan of the lung shows an increased right lung infiltrate. The patient's sputum is growing an oxacillin sensitive Staph aureus. Blood cultures are sterile. [place] [address], hemoglobin 10 and platelet count 279,000. Creatinine is 1.0, GFR is 53. Liver function studies are normal except for an alkaline phosphatase of 185. PAST MEDICAL HISTORY/OB-ART MUSEUM DOCENT HISTORY: She is a 5, para 5, AB 0. She has had a hysterectomy and tubal ligation, REVIEW OF SYSTEMS: HEENT: She denies difficulty hearing or seeing. Neck: No stiffness. Respiratory: See above. Cardiac: No chest pain or palpitations. GI: No nausea, vomiting, or diarrhea. : No dysuria or flank pain. Integument: No rash. Neurologic: No seizures. No motor or sensory deficit. Endocrine: Patient is diabetic but she does not have thyroid disease. Hematologic: No history of anemia or bleeding tendency. The remainder of the patient's review of systems was completed and was negative. Bones, joints, muscles: The patient complains of low back pain. Also she says she has pain in her legs when she first gets up and walks on them. PREVIOUS HOSPITALIZATIONS AND OPERATIONS: She has had labor and deliveries, a hysterectomy, tubal ligation, bilateral hip fractures and subsequent total hip arthroplasties bilaterally. She has had surgery on her foot. She has also had four back surgeries. She has been admitted for a myocardial infarction at which time coronary artery stents were placed. MEDICAL DISEASES: 1. Diabetes mellitus. 2. Hypertension. 3. Myocardial infarction. 4. Hyperlipidemia. INFECTIOUS DISEASE HISTORY: Positive for pneumonia and UTI. FAMILY HISTORY: Positive for cancer, diabetes mellitus, hypertension, and myocardial infarction. SOCIAL HISTORY[place] . She lives with her son and [id number]. She has a dog as a pet. The patient does not smoke cigarettes, drink alcoholic beverages or abuse drugs. ALLERGIES: 1. Betadine. 2. Sulfa. 3. Iodine. HOME MEDICATIONS: 1. Glipizide. 2. Brilinta. 3. Spironolactone. 4. Isordil. 5. Carvedilol. 6. Aspirin. 7. Acetaminophen with codeine. 8. Lipitor. 9. Nitroglycerin. 10. Iron. 11. Ativan. PHYSICAL EXAMINATION: Vital Signs: Temperature is 98.2 degrees, pulse 89, respirations 18, blood pressure 179/78. Patient weighs 173 pounds. HEENT: She can hear my spoken words and see near objects. No drainage noted from the nose or ears. She is edentulous. Neck: No meningismus. Thorax: No increased AP diameter. Lungs: Clear to auscultation. Cardiovascular: Regular heart rate. Abdomen: Soft and nontender. Neurologic: The patient is alert. She can move her extremities. There is no tremor. Her sensation is intact to touch. Her memory, as regarding her medical history, seemed intact also. Integument: No visible rash. Thank you for the consult. cc: Johnathon Vanessa MD
[2016-09-21] MEDS: TYLENOL PO PRN ×2 (10:57→21:33)
[2016-09-21] MEDS: KEFZOL 2 GM/D5W 2 GM/50 ML IVPB IV SCH ×2 (11:26→18:37)
[2016-09-21] MEDS ORDERED: VANCOMYCIN 1,500 MG in NS 250 ML IV SCH (13:00)
--- NOTE | 2016-09-21 15:08 | PROGRESS NOTE ---
DATE: 09/21/2016 SUBJECTIVE: The patient is resting comfortably in bed. She still complains of shortness of breath and cough with brown colored sputum. OBJECTIVE: Vital Signs: Temperature 98.3 degrees, blood pressure 157/77, heart rate 93, respirations 17, O2 saturations 96% on 2 L nasal cannula. General: This is a elderly female lying in bed in no acute distress. Head: Normocephalic atraumatic. Heart: S1, S2. Normal. Regular rate and rhythm. Lungs: She had coarse breath sounds on the right lung field. Abdomen: Positive bowel sounds. Soft, nontender, nondistended. Extremities: No edema. No cyanosis. No calf tenderness. Neuro: The patient is alert and oriented x3. LABS: White blood cell count 10, hemoglobin 10, hematocrit 33, platelets 279,000. Sodium 142, potassium 4.8, chloride 104, CO2 24, BUN 28, creatinine 1, glucose 142. ASSESSMENT AND PLAN: 1. Methicillin sensitive Staphylococcus aureus pneumonia. Management as per Dr. Vanessa. The patient is now on Ancef. Continue with bronchodilator therapy, supplemental oxygen and incentive spirometry. 2. Diabetes mellitus type 2. Continue on sliding scale insulin. 3. Hypertension. Continue on the current antihypertensives. 4. Severe coronary artery disease. Aware. Continue on the current cardiac medications. 5. Morbid obesity. Aware. 6. Gastrointestinal prophylaxis. Continue on omeprazole. 7. Deep vein thrombosis prophylaxis. Continue on heparin. cc: Carola Alicia MD
[2016-09-21] MEDS: LIPITOR PO SCH (21:33)
[2016-09-21] MEDS: DULCOLAX PR SCH (21:34)
[2016-09-22] MEDS: XOPENEX NEB INH SCH ×4 (03:05→22:43)
[2016-09-22] MEDS: KEFZOL 2 GM/D5W 2 GM/50 ML IVPB IV SCH ×3 (04:38→22:04)
[2016-09-22] MEDS: TYLENOL PO PRN ×3 (05:53→22:06)
[2016-09-22 06:42] LABS: BASO% 0.8 % (0.0-0.8); EOS# 0.53 X1000 (0.0-0.7); EOS% 4.9 % (0.0-10.0); HEMATOCRIT 33.3 % (37.0-47.0); IMM GRAN# 1.06 X1000 (0.0-0.04); IMM GRAN% 9.8 % (0.0-0.5); LYMPH# 1.07 X1000 (1.2-3.4); LYMPH% 9.9 % (20.5-51.1); MANUAL DIFF NEEDED? YES; MCH 31.8 PG (27-31); MCV 106.1 FL (81-99); MONO# 0.83 X1000 (0.11-0.59); MONO% 7.7 % (1.7-9.3); MPV 10.3 FL (7.4-10.4); NEUT% 66.9 % (42.2-75.2); PLT 289 X1000 (130-400); RBC 3.14 XMIL (4.2-5.4)
[2016-09-22 06:44] LABS: CALCIUM 9.1 mg/dL (8.8-10.2); POTASSIUM 4.7 mmol/L (3.5-5.1)
[2016-09-22 07:19] LABS: BANDS 8 % (0-1); EOS 2 % (1-10); LYMPHS 12 % (21-51); MONO 6 % (1-9)
[2016-09-22] MEDS: HUMULIN R SUBQ SCH ×4 (07:38→22:35)
[2016-09-22] MEDS: PRILOSEC PO SCH (07:52)
[2016-09-22] MEDS: HEPARIN SUBQ SCH ×2 (08:21→22:06)
[2016-09-22] MEDS: ICAR-C PLUS PO SCH (08:21)
[2016-09-22] MEDS: GLUCOTROL PO SCH (08:21)
[2016-09-22] MEDS: COREG PO SCH ×2 (08:21→22:06)
[2016-09-22] MEDS: BRILINTA PO SCH ×2 (08:21→22:05)
[2016-09-22] MEDS: IMDUR PO SCH (08:21)
[2016-09-22] MEDS: MIRALAX PO SCH ×2 (08:21→22:05)
[2016-09-22] MEDS: ASPIRIN PO SCH (08:21)
[2016-09-22] MEDS: NS 1,000 ML IV SCH (11:58)
--- NOTE | 2016-09-22 15:04 | PROGRESS NOTE ---
DATE: 09/22/2016 SUBJECTIVE: The patient is resting comfortably in bed. She states that her shortness of breath is slowly improving. She states that her coughing is a lot less. OBJECTIVE: Vital Signs: Temperature 97.6 degrees, blood pressure 151/44, heart rate 71, respirations 16, O2 saturations 98% on 2 L nasal cannula. General: This is a chronically ill- appearing, elderly female, lying in bed, in no acute distress. Head: Normocephalic, atraumatic. Heart: S1, S2. Normal. Regular rate and rhythm. Lungs: Equal air entry bilaterally. No crackles. No rales. Abdomen: Positive bowel sounds. Soft, nontender, nondistended. Extremities: No edema. No cyanosis. No calf tenderness. Neurologic: The patient is alert and oriented x3. LABS: White blood cell count 10, hemoglobin 10, hematocrit 33, platelets 289,000. Sodium 140, potassium 4.7, chloride 104, CO2 25, BUN 27, creatinine 1.3, glucose 135. ASSESSMENT AND PLAN: 1. MSSA pneumonia. Continue on cefazolin, bronchodilator therapy and supplemental oxygen. 2. Acute kidney injury on chronic kidney disease. We will start the patient on gentle IV fluid hydration and monitor the urine output closely. 3. Diabetes mellitus type 2. Continue on Glucotrol. 4. Severe coronary artery disease. Continue on the current cardiac medications. 5. Morbid obesity. Aware. 6. Gastrointestinal prophylaxis. Continue on omeprazole. 7. Deep vein thrombosis prophylaxis. Continue on heparin. 8. Continue with physical therapy. cc: Carola Alicia MD
[2016-09-22] MEDS: DULCOLAX PR SCH (22:05)
[2016-09-22] MEDS: LIPITOR PO SCH (22:06)
[2016-09-23] MEDS: XOPENEX NEB INH SCH ×4 (03:15→22:14)
[2016-09-23] MEDS: KEFZOL 2 GM/D5W 2 GM/50 ML IVPB IV SCH ×3 (05:00→21:40)
[2016-09-23] MEDS: PRILOSEC PO SCH (06:07)
[2016-09-23] MEDS: HUMULIN R SUBQ SCH ×4 (06:07→21:44)
[2016-09-23 06:31] LABS: BASO% 0.7 % (0.0-0.8); EOS# 0.49 X1000 (0.0-0.7); EOS% 4.7 % (0.0-10.0); HEMATOCRIT 32.8 % (37.0-47.0); HEMOGLOBIN 9.9 g/dL (12.0-16.0); IMM GRAN% 9.6 % (0.0-0.5); LYMPH# 1.04 X1000 (1.2-3.4); MANUAL DIFF NEEDED? YES; MCH 31.9 PG (27-31); MCHC 30.2 g/dL (33-37); MCV 105.8 FL (81-99); MONO# 0.75 X1000 (0.11-0.59); MONO% 7.2 % (1.7-9.3); MPV 10.2 FL (7.4-10.4); NEUT% 67.8 % (42.2-75.2); PLT 259 X1000 (130-400)
[2016-09-23 06:36] LABS: CALCIUM 8.9 mg/dL (8.8-10.2); POTASSIUM 4.8 mmol/L (3.5-5.1)
[2016-09-23 07:28] LABS: BANDS 4 % (0-1); EOS 6 % (1-10); LYMPHS 10 % (21-51); MONO 6 % (1-9)
[2016-09-23] MEDS: TYLENOL PO PRN ×2 (07:29→21:39)
[2016-09-23] MEDS: ICAR-C PLUS PO SCH (09:44)
[2016-09-23] MEDS: BRILINTA PO SCH ×2 (09:44→21:41)
[2016-09-23] MEDS: ASPIRIN PO SCH (09:44)
[2016-09-23] MEDS: GLUCOTROL PO SCH (09:44)
[2016-09-23] MEDS: COREG PO SCH ×2 (09:44→21:40)
[2016-09-23] MEDS: IMDUR PO SCH (09:44)
[2016-09-23] MEDS: HEPARIN SUBQ SCH ×2 (09:45→21:42)
[2016-09-23] MEDS: MIRALAX PO SCH ×2 (09:49→21:42)
[2016-09-23] MEDS ORDERED: DESYREL PO PRN (10:14)
[2016-09-23] MEDS: NS 1,000 ML IV SCH ×2 (11:22→17:38)
--- NOTE | 2016-09-23 16:54 | PROGRESS NOTE ---
DATE: 09/23/2016 SUBJECTIVE: The patient is sitting up in a chair. She states she feels a lot better today. She has less coughing fits. OBJECTIVE: Vital Signs: Temperature 98.6 degrees, blood pressure 125/51, heart rate 71, respirations 20, O2 saturations 98% on 2 L nasal cannula. General: This is a elderly female sitting in a chair in no acute distress. Head: Normocephalic, atraumatic. Heart: S1, S2. Normal. Regular rate and rhythm. Lungs: Equal air entry bilaterally. No crackles , no rales. Abdomen: Positive bowel sounds. Soft, nontender, nondistended. Extremities: No edema. No cyanosis. No calf tenderness. Neurologic: The patient is alert and oriented x3. LABS: White blood cell count 10.4, hemoglobin 9.9, hematocrit 32, platelets 259,000. Sodium 141, potassium 4.8, chloride 104, CO2 24, BUN 28, creatinine 1.3, glucose 133. ASSESSMENT AND PLAN: 1. Methicillin sensitive Staphylococcus aureus pneumonia. Continue on cefazolin, bronchodilator therapy and supplemental oxygen. 2. Acute kidney injury on chronic kidney disease. Unchanged. Will continue to monitor the patient's urine output closely. Continue on gentle IV fluid hydration. 3. Severe coronary artery disease. Continue on the current cardiac medications. 4. Morbid obesity. Aware. 5. Gastrointestinal prophylaxis. Continue on omeprazole. 6. Diabetes mellitus type 2. Continue on Glucotrol. 7. Deep vein thrombosis prophylaxis. Continue on heparin. 8. Continue with physical therapy. cc: Carola Alicia MD
[2016-09-23] MEDS: LIPITOR PO SCH (21:41)
[2016-09-23] MEDS: DULCOLAX PR SCH (21:42)
[2016-09-24] MEDS: NS 1,000 ML IV SCH (02:30)
[2016-09-24] MEDS: XOPENEX NEB INH SCH ×4 (03:10→22:09)
[2016-09-24] MEDS: HUMULIN R SUBQ SCH ×4 (06:15→21:10)
[2016-09-24] MEDS: KEFZOL 2 GM/D5W 2 GM/50 ML IVPB IV SCH ×3 (06:15→21:10)
[2016-09-24 06:29] LABS: BASO% 0.6 % (0.0-0.8); EOS# 0.43 X1000 (0.0-0.7); EOS% 4.4 % (0.0-10.0); HEMATOCRIT 32.5 % (37.0-47.0); HEMOGLOBIN 9.7 g/dL (12.0-16.0); IMM GRAN# 0.76 X1000 (0.0-0.04); IMM GRAN% 7.8 % (0.0-0.5); LYMPH# 0.93 X1000 (1.2-3.4); LYMPH% 9.5 % (20.5-51.1); MANUAL DIFF NEEDED? YES; MCH 31.7 PG (27-31); MCHC 29.8 g/dL (33-37); MCV 106.2 FL (81-99); MONO# 0.59 X1000 (0.11-0.59); MPV 10.6 FL (7.4-10.4); NEUT% 71.7 % (42.2-75.2); PLT 272 X1000 (130-400); RBC 3.06 XMIL (4.2-5.4)
[2016-09-24 06:33] LABS: CALCIUM 8.7 mg/dL (8.8-10.2); POTASSIUM 4.5 mmol/L (3.5-5.1)
[2016-09-24] MEDS: TYLENOL PO PRN ×3 (07:34→21:09)
[2016-09-24] MEDS: PRILOSEC PO SCH (07:36)
[2016-09-24 07:42] LABS: BANDS 2 % (0-1); EOS 2 % (1-10); LYMPHS 12 % (21-51); MONO 11 % (1-9)
--- NOTE | 2016-09-24 08:34 | Diag Imaging Result Doc PS360 ---
EXAM: CHEST-PORTABLE INDICATION: pneumonia COMPARISON: 09/19/2016 FINDINGS: Inspiration is slightly suboptimal. Consolidation in the right mid and lower lung zones are essentially stable. Otherwise, no new consolidations are appreciated. Cardiac silhouette is stable. IMPRESSION: Essentially stable right mid and lower lung zone consolidation as described. Electronically signed by Anuel Hernandez 09/24/2016 8:32 AM
[2016-09-24] MEDS: ICAR-C PLUS PO SCH (08:43)
[2016-09-24] MEDS: ASPIRIN PO SCH (08:43)
[2016-09-24] MEDS: COREG PO SCH ×2 (08:43→21:09)
[2016-09-24] MEDS: HEPARIN SUBQ SCH ×2 (08:43→21:09)
[2016-09-24] MEDS: IMDUR PO SCH (08:44)
[2016-09-24] MEDS: GLUCOTROL PO SCH (08:44)
[2016-09-24] MEDS: BRILINTA PO SCH ×2 (08:44→21:09)
[2016-09-24] MEDS: MIRALAX PO SCH ×2 (08:44→21:10)
--- NOTE | 2016-09-24 18:01 | PROGRESS NOTE ---
DATE: 09/24/2016 SUBJECTIVE: Patient looks well. Really no focal complaints. OBJECTIVE: Vital signs: Blood pressure 125/59, heart rate 72, respiratory rate 18, temperature 98.7 degrees. Cardiovascular: Regular rate and rhythm. Pulmonary: Diminished breath sounds at the bases. GI: Soft, nontender, nondistended. Bowel sounds are positive. Extremities: No clubbing or cyanosis. Lymphatics: No peripheral edema. Neurological: Nonfocal. LABORATORY DATA: White count is normal. Hemoglobin and hematocrit 9 and 32, platelets 272,000. Chemistries look okay. Creatinine 1.1 which was 2.9 when she came in. PROBLEM LIST: 1. Pneumonia methicillin sensitive Staphylococcus aureus. She is on cefazolin day 4 and she seems to be doing okay. It is at Dr. Vanessa' discretion. I think we could switch her to p.o. antibiotics such as Keflex or Levaquin, MICs are excellent for clindamycin, erythromycin and gentamicin and oxacillin but this will be at his discretion. 2. Congestive heart failure appears to be compensated. 3. Acute kidney injury. That also seems to be improved, I am holding further IV fluids just because of volume overload. 4. Coronary artery disease appears to be stable. DISPOSITION: Patient does not want rehab. Last PT note which was on the showed she walked 150 feet. I think we could probably pursue going home versus rehab. Anticipate discharge tomorrow. cc: Brandon Bowen MD
--- NOTE | 2016-09-24 20:26 | PROGRESS NOTE ---
DATE: 09/24/2016 PRESENT ILLNESS: The patient has an oxacillin sensitive Staph aureus pneumonia. It involves the right lung. MEDICATIONS: The patient is on Ancef 2 g IV every 8 hours. PHYSICAL EXAMINATION: Vital Signs: Temperature is 98.7 degrees, pulse 72, respirations 18, blood pressure 125/59. General: This is a somewhat ill-appearing, elderly female. She is in no acute distress. Lungs: Clear to auscultation. Cardiovascular: Regular heart rate. Abdomen: Soft, nontender. Neurologic: Patient is alert. She can move her extremities. LABORATORY AND X-RAY: Chest x-ray shows right sided pneumonia, which is unchanged from prior x- ray. Creatinine is 1.1. The GFR is 48. CBC shows a white count of 9770, hemoglobin 9.7, and a platelet count of 272,000. ASSESSMENT AND PLAN: 1. I discussed with the patient going home on IV antibiotics. She told me that she would very much like to do that and that she has people who are around her 24 hours a day that can help her with the antibiotic treatment as well as monitoring her. So I am going to write for the patient to get a PICC and put a consult in for a [facility] to discontinue her antibiotics at home. I will plan then to see her back in the office in 2 weeks, at which time I will examine her and repeat the chest x-ray to see if things are clearing. 2. Comorbidities: Include diabetes mellitus and the fact that the patient is very elderly. cc: Johnathon Vanessa MD
[2016-09-24] MEDS: DULCOLAX PR SCH (21:09)
[2016-09-24] MEDS: LIPITOR PO SCH (21:09)
[2016-09-25] MEDS: XOPENEX NEB INH SCH ×2 (03:15→09:51)
[2016-09-25 05:36] LABS: BASO% 0.6 % (0.0-0.8); EOS# 0.41 X1000 (0.0-0.7); HEMATOCRIT 31.6 % (37.0-47.0); HEMOGLOBIN 9.5 g/dL (12.0-16.0); IMM GRAN% 4.9 % (0.0-0.5); LYMPH# 1.12 X1000 (1.2-3.4); MANUAL DIFF NEEDED? YES; MCH 31.8 PG (27-31); MCHC 30.1 g/dL (33-37); MCV 105.7 FL (81-99); MONO# 0.62 X1000 (0.11-0.59); MONO% 6.1 % (1.7-9.3); MPV 10.7 FL (7.4-10.4); NEUT% 73.4 % (42.2-75.2); PLT 246 X1000 (130-400); RBC 2.99 XMIL (4.2-5.4)
[2016-09-25 05:40] LABS: INR 1.03; PROTIME 10.8 Seconds (9.2-11.7)
[2016-09-25] MEDS: KEFZOL 2 GM/D5W 2 GM/50 ML IVPB IV SCH ×2 (05:43→14:32)
[2016-09-25] MEDS: HUMULIN R SUBQ SCH ×2 (06:02→14:13)
[2016-09-25 06:30] LABS: BANDS 8 % (0-1); LYMPHS 10 % (21-51); MONO 8 % (1-9)
[2016-09-25] MEDS: PRILOSEC PO SCH (06:32)
[2016-09-25 07:36] VITALS: BP 170/63
[2016-09-25] MEDS ORDERED: NS 250 ML ONE (08:24)
[2016-09-25] MEDS: HEPARIN SUBQ SCH (08:41)
[2016-09-25] MEDS: GLUCOTROL PO SCH (08:41)
[2016-09-25] MEDS: COREG PO SCH (08:41)
[2016-09-25] MEDS: ASPIRIN PO SCH (08:42)
[2016-09-25] MEDS: MIRALAX PO SCH (08:42)
[2016-09-25] MEDS: IMDUR PO SCH (08:42)
[2016-09-25] MEDS: BRILINTA PO SCH (08:42)
[2016-09-25] MEDS: ICAR-C PLUS PO SCH (08:42)
[2016-09-25] MEDS: TYLENOL PO PRN ×2 (08:50→15:18)
--- NOTE | 2016-09-25 09:53 | PROGRESS NOTE ---
DATE: 09/25/2016 PRESENT ILLNESS: The patient currently is being treated for an oxacillin sensitive Staph aureus pneumonia with Ancef at a dose of 2 g IV every 8 hours. This is the first day of treatment. MEDICATIONS: As mentioned above, the patient is on Ancef. PHYSICAL EXAMINATION: Vital Signs: Temperature is 98.6 degrees, pulse 84, respirations 16, blood pressure 170/63. General: This is a somewhat ill-appearing, elderly female, but she is in no acute distress. Lungs: Clear to auscultation. Cardiovascular: Heart rate is regular. Abdomen: Soft and nontender. Neurologic: She is alert. She can move her extremities. LAB AND X-RAY: The only lab today is a CBC with a white count of 10,210, hemoglobin 9.5, platelet count 246,000. There is no new x-ray today. ASSESSMENT AND PLAN: The patient has a Staphylococcus pneumonia. My plan is to send her home on intravenous Ancef. I will be seeing her in the office in 2 weeks' time to see if we need to continue or stop or switch to oral antibiotics. COMORBIDITIES: The patient's comorbidities include diabetes mellitus, and the patient is elderly. cc: Johnathon Vanessa MD MTDD
--- NOTE | 2016-09-25 19:18 | DISCHARGE SUMMARY ---
ADMISSION DATE: 09/15/2016 DISCHARGE DATE: 09/25/2016 CONSULTATIONS: 1. Eusebio Santiago MD with Cardiology. 2. Johnathon Vanessa MD with Infectious Disease. PERTINENT PROCEDURES: 1. Chest x-ray showed increased markings in the lung bases representing atelectasis, infiltrates, fibrosis, mild pulmonary edema. 2. Renal ultrasound showed no visible renal abnormality, no hydronephrosis. 3. Echocardiogram with EF 55-60%. 4. Chest CT showed worsening in the already extensive consolidation in the right lower lobe, may represent recurrent pneumonia or aspiration. 5. Final chest x-ray on 09/24 showed essentially stable right mid lower lung zone consolidations. DISCHARGE DIAGNOSES: 1. Methicillin-sensitive Staphylococcus aureus pneumonia followed by Dr. Johnathon Vanessa with Infectious Disease. The patient will be discharged with IV antibiotics with IV Ancef. She will follow back up with Dr. Johnathon Vanessa in 2 weeks time to see if antibiotics need to be continued, stopped or switched to oral. Stable 2. Congestive heart failure. Compensated. 3. Acute kidney injury. Improved. 4. Coronary artery disease. Stable. 5. Morbid obesity. Aware. 6. Type 2 diabetes mellitus. Continue Glucotrol. HOSPITAL COURSE: Ms. Butler is a 81-year-old, female who carries a past medical history of systolic congestive heart failure, chronic kidney disease stage 3, coronary artery disease, diabetes mellitus type 2, history of PE, who presented with complaints of cough x1 week productive of yellow-green phlegm, fever and chills that have been intermittent , wheezing and weakness. She fell the morning of her admission. She states that her knees buckled underneath her. She also had hoarseness of her throat that also started 1 week ago about the same time that her cough started. The patient's chest x-ray revealed bilateral infiltrates with some pulmonary edema. Laboratory data showed an acute kidney injury on chronic kidney disease. She looked intravascularly dry. She had an elevated white count. She had a normal lactate. The patient was admitted for community-acquired pneumonia and was initially started on azithromycin and Rocephin as well as bronchodilators, sputum culture and aggressive pulmonary toilet. She was gently hydrated and continued on all home medications except for her EVELIO and diuretics. Cardiology was consulted. They reviewed her echocardiogram. Her EKG was unremarkable. They did not anticipate pursuing any specific cardiac workup. Her symptoms were clearly respiratory. Patient's sputum culture did grow out an MSSA. Dr. Johnathon Vanessa was consulted. The patient was started on Ancef 2 g. Clinically the patient has improved. Her final chest x-ray was observed with essentially stable right, mid and lower lung zone consolidations. She had a PICC line placed today. We did talk to the patient about rehabilitation, however, she is refusing rehabilitation. She will go home with home health as well as IV antibiotics with [facility]. She will be receiving Ancef IV. She will see Dr. Johnathon Vanessa back in the office in 2 weeks time where he will decide whether to continue, stop or switch to oral antibiotic. The patient has been afebrile with a normal white count. VITAL SIGNS AT TIME OF DISCHARGE: Temperature is 98.6 degrees, heart rate 84, respirations 16, blood pressure 170/63, O2 is 97% on room air. DISCHARGE DIET: Healthy heart with Glucerna shakes. DISCHARGE MEDICATIONS: 1. Tylenol 3, 1 each p.o. q.6 hours p.r.n. 2. Aspirin 81 mg p.o. daily. 3. Lipitor 40 mg p.o. at bedtime. 4. Coreg 12.5 mg p.o. q.12 hours. 5. Glipizide 5 mg p.o. daily. 6. Icar-C 1 each p.o. daily as directed. 7. Isosorbide mononitrate ER 30 mg p.o. daily. 8. Ativan 0.5 mg p.o. t.i.d. 9. Nitroglycerin 0.4 mg sublingual p.r.n. 10. Lactone 25 mg p.o. daily. 11. Brilinta 90 mg p.o. b.i.d. FOLLOWUP: 1. The patient is being discharged home with home health and IV antibiotics that will be provided by [facility]. The patient will return to see Dr. Johnathon Vanessa in 2 weeks where they will decide whether she continues IV or stops it, or switches to p.o. antibiotics. 2. She will also need to follow up with Dr. Tony, her primary care physician, in 7-10 days. 3. The patient can return to the ED for any worsening of symptoms. DISCHARGE TIME: Greater than 30 minutes. Dictated by SHEREE Abreu for Brandon Bowen MD cc: MD Mauricio Buchanan MD pt examined, agree with above APENOT MTDD
== END 2016-09-25 15:57 | disposition home health service (06) ==
LOC: ED 09:27 → 4N 12:39 → SUATTDRO 12:39
PROVIDERS: ATTEND Internal Medicine

== ENCOUNTER 2018-09-09 17:30 | Inpatient (IN) ==
[2018-09-09] MEDS ORDERED: ASPIRIN PO ONE (18:43)
[2018-09-09] MEDS ORDERED: NITROGLYCERIN TOP ONE (18:50)
[2018-09-09 19:04] LABS: BASO# 0.07 X1000 (0.0-0.2); BASO% 0.5 % (0.0-0.8); EOS# 0.27 X1000 (0.0-0.7); HEMATOCRIT 40.2 % (37.0-47.0); HEMOGLOBIN 12.5 g/dL (12.0-16.0); IMM GRAN# 0.14 X1000 (0.0-0.04); IMM GRAN% 1.1 % (0.0-0.5); LYMPH# 1.43 X1000 (1.2-3.4); LYMPH% 10.7 % (20.5-51.1); MCHC 31.1 g/dL (33-37); MCV 96.4 FL (81-99); MONO# 0.88 X1000 (0.11-0.59); MONO% 6.6 % (1.7-9.3); NEUT# 10.52 X1000 (1.4-6.5); NEUT% 79.1 % (42.2-75.2); PLT 215 X1000 (130-400); RBC 4.17 XMIL (4.2-5.4); RDW 13.8 % (11.5-14.5); WBC 13.31 X1000 (4.8-10.8)
[2018-09-09 19:12] LABS: INR 0.96; PROTIME 13.6 Seconds (11.0-16.0)
[2018-09-09 19:13] LABS: PTT 30.9 Seconds (22.3-41.8)
[2018-09-09 19:20] LABS: LYMPHS 8 % (21-51); MONO 7 % (1-9); NRBC 2 % (0-0); OVALOCYTES 1+; SEGS 82 % (42-75); STOMATOCYTES 1+
[2018-09-09 19:31] LABS: ALB/GLOB RATIO 1.5; ALBUMIN 4.1 g/dL (3.5-5.0); CALCIUM 9.2 mg/dL (8.8-10.2); CREATININE 2.4 mg/dL (0.5-0.9); POTASSIUM 5.7 mmol/L (3.5-5.1); TOTAL BILIRUBIN 0.36 mg/dL (0.20-1.00); TOTAL PROTEIN 6.9 g/dL (6.3-8.3)
--- NOTE | 2018-09-09 19:59 | Diag Imaging Result Doc PS360 ---
EXAM: CHEST-2 VIEWS INDICATION: chest pain, sob TECHNIQUE: 2 views COMPARISON: 05/08/2017 FINDINGS: Inspiration is slightly suboptimal. There is suggestion of mild atelectasis at the lung bases. The lungs are grossly clear, otherwise. There is no discrete pleural fluid collection or pneumothorax. The cardiomediastinal silhouette and central vasculature are grossly unremarkable accounting for magnification from AP technique. IMPRESSION: Mild bibasilar subsegmental atelectasis. No definite acute pathology by plain radiograph, otherwise. Electronically signed by Anuel Hernandez 09/09/2018 7:56 PM
--- NOTE | 2018-09-09 21:57 | HISTORY AND PHYSICAL ---
PRIMARY CARE PHYSICIAN: Dr. Tony. CHIEF COMPLAINT: Chest pain. HISTORY OF PRESENTING ILLNESS: An 82-year-old female with a history of diabetes mellitus type 2, hypertension, coronary artery disease, and CHF, who had presented to emergency department with a 1 day history of having chest pain. She described it as pressure-like. She states that she had some shortness of breath and noticed her legs were swelling. Subsequently, she had come to the emergency department. In the ED, she was evaluated and due to her presenting symptoms, it was thought that we would place her in observation for further evaluation and management. At the time of my examination, patient denied any headache, fever, chills, nausea, vomiting, diarrhea, hemoptysis, melena, but complained of chest discomfort and lower extremity edema. PAST MEDICAL HISTORY: Includes: 1. Diabetes mellitus type 2. 2. Hypertension. 3. Coronary artery disease. 4. CHF. 5. Hyperlipidemia. PAST SURGICAL HISTORY: 1. Coronary artery stent. 2. Hysterectomy. 3. Back surgery. 4. Bilateral hip surgery. 5. Cataract surgery. ALLERGIES: Latex, povidone and iodine soap, and Sulfa. CURRENT MEDICATIONS: Include: 1. Aspirin 81 mg p.o. daily. 2. Atorvastatin 40 mg p.o. daily. 3. Coreg 12.5 mg p.o. q.12 hours. 4. Glipizide 5 mg p.o. daily. 5. Isosorbide mononitrate 30 mg p.o. daily. 6. Lorazepam 0.5 mg p.o. t.i.d. 7. Nitroglycerin 0.4 mg tablets sublingual p.r.n. 8. Spironolactone 25 mg p.o. daily. 9. Brilinta 90 mg p.o. b.i.d. SOCIAL HISTORY: No history of smoking, alcohol, or illicit drug use. FAMILY HISTORY: Positive for coronary artery disease in father. REVIEW OF SYSTEMS: A 14 point review of systems is as stated in HPI. Other systems negative. PHYSICAL EXAMINATION: GENERAL: Cooperative, friendly female. She is resting more comfortably now. VITAL SIGNS: Temperature 97.8 degrees, pulse 82, respirations 20, blood pressure 161/66. HEENT: Atraumatic, normocephalic. Extraocular movements intact. PERRLA. NECK: No masses. CHEST: Clear to auscultation. CARDIOVASCULAR: Regular rate and rhythm. ABDOMEN: Soft, positive bowel sounds. EXTREMITIES: +1 edema. NEUROLOGIC: She is awake, alert, oriented x3. : No bladder distention. SKIN: Warm. LABORATORIES AND STUDIES: Sodium 135, potassium 5.7, chloride 104, CO2 is 17, BUN is 33, creatinine is 2.4, glucose 208. WBC is 13.31, hemoglobin 12.5, hematocrit 40.2, platelets 215,000. Chest x-ray shows bibasilar atelectasis and no definite acute pathology. ASSESSMENT: An 82-year-old, elderly female, with a history of diabetes mellitus type 2, hypertension, coronary disease, and congestive heart failure, who had presented to emergency department with a 1 day history of having chest pain. We will place the patient for observation for further evaluation and management. 1. Chest pain. 2. Acute kidney injury. 3. Diabetes mellitus type 2. 4. Hypertension. 5. Congestive heart failure, unspecified. PLAN: 1. We will admit patient to medical floor with telemetry. 2. Continue with cardiac workup. Check EKG, serial cardiac enzymes. Have patient continue on aspirin. We will use sublingual nitroglycerin and morphine p.r.n. chest pain. 3. Continue with gentle hydration and monitor renal function. 4. Put patient on glycemic protocol with sliding scale insulin regimen. 5. Monitor blood pressure. Resume antihypertensive agents. 6. We will check to see if there is a recent echocardiogram. 7. Put patient on deep venous thrombosis prophylaxis with sequential compression devices. 8. We will continue to follow and reassess, and make further recommendations based on patient's clinical course. cc: Tomás Wilson MD [facility]
[2018-09-09] MEDS ORDERED: NITROGLYCERIN SL PRN (22:09)
[2018-09-09] MEDS ORDERED: TYLENOL PO PRN (22:09)
[2018-09-09] MEDS ORDERED: NS 1,000 ML IV PRN (22:09)
[2018-09-09] MEDS ORDERED: ZOFRAN IV PRN (22:09)
--- NOTE | 2018-09-09 23:51 | PROVIDER DOCUMENTATION ---
This chart was entered by Elizabeth Hernandez Scribe, acting as scribe for Stefan Peck MD. HPI-General Adult - General Chief Complaint: Edema Stated Complaint: SHORTNESS OF BREATH/EDEMA Time Seen by Provider: 09/09/18 18:07 Source: patient Allergies/Adverse Reactions: Patient Allergies Allergy/AdvReac Type Severity Reaction Status Date / Time latex Allergy RASH Verified 09/15/16 09:48 povidone-iodine Allergy RASH Verified 09/15/16 09:48 [From Betadine] soap * [From Betadine] Allergy RASH Verified 09/15/16 09:48 Sulfa (Sulfonamide Allergy RASH Verified 09/15/16 09:48 Antibiotics) Home Medications: Home Medication List Medication Instructions Recorded Confirmed Last Taken Type ATORVAstatin [Lipitor] 40 mg PO QHS 10/15/14 09/15/16 09/14/16 19:00 History Isosorbide Mononitrate E.r. [Imdur] 30 mg PO DAILY 10/15/14 09/15/16 09/15/16 08:00 History Spironolactone 25 mg PO DAILY 10/15/14 09/15/16 09/15/16 08:00 History Ticagrelor [Brilinta] 90 mg PO BID 10/15/14 09/15/16 09/15/16 08:00 History Aspirin 81 mg PO DAILY #30 chewtab 10/25/14 09/15/16 09/15/16 08:00 Rx Acetaminophen with Codeine 1 each PO Q6HR PRN 09/15/16 09/15/16 09/15/16 08:00 History [Acetaminophen-Cod #4 Tablet] Glipizide 5 mg PO DAILY 09/15/16 09/15/16 09/14/16 19:00 History Iron Carbonyl/Vit C/Vit B12/FA 1 each PO DIRECTED 09/15/16 09/15/16 Unknown History [Icar-C Plus] Lorazepam [Ativan] 0.5 mg PO TID PRN 09/15/16 09/15/16 09/15/16 08:00 History Nitroglycerin Sl [Nitroglycerin] 0.4 mg SL PRN PRN 09/15/16 09/15/16 Unknown History Carvedilol [Coreg] 12.5 mg PO Q12H #60 tablet 09/25/16 Unknown Rx - History of Present Illness -Gen Adult Nature of Presenting Problems: 82 yof c/o pt son at bedside. pt woke up this am w/ tight, dull cp, sob and bilat LE and feet swelling. 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 pt uses walker to ambulate around home. pt has hx of mi, blood clots in lung and legs. pt followed by dr. rascon, has not had heart workup done since october 2017. pt has rx list in room. pt denies nvd, fever and sweating. Review of Systems - Adult - REVIEW OF SYSTEMS - ADULT Constitutional: reports: no symptoms reported. denies: chills, fever, fatique, night sweats Eyes: reports: no symptoms reported Ears, Nose, Mouth & Throat: reports: no symptoms reported Cardiovascular: reports: see HPI, chest pain (substernal, tight and dull). denies: heart murmur, irregular heart rate, syncope Respiratory: reports: see HPI, shortness of breath. denies: dyspnea on e xertion, pleurisy, wheezing Gastrointestinal: reports: no symptoms reported. denies: abdominal pain, diarrhea, nausea, vomiting Genitourinary: reports: no symptoms reported. denies: dysuria, flank pain, urgency Musculoskeletal: reports: see HPI, joint swelling (bilat LE and feet). denies: bone pain, joint pain, muscle aches Integumentary: reports: no symptoms reported Neurological: reports: no symptoms reported Psychiatric: reports: no symptoms reported Endocrine: reports: no symptoms reported Hematologic/Lymphatic: reports: no symptoms reported Allergic/Immunologic: reports: no symptoms reported All Other Systems: Reviewed and Negative Past History - Adult - PAST MEDICAL HISTORY-ADULT Review of Records: reports: Old Records Reviewed, Nursing Assessment Review, Medications Reviewed, Social history reviewed & non-contributory. Major Childhood Illnesses: reports: denies history Cardiovascular: reports: cardiac disease, A-Fib, blood clots, HTN, MD (09/21/14) Respiratory: reports: denies history Gastrointestinal: reports: denies history Obstetrical/Gynecological: reports: denies history Genitourinary: reports: denies history Musculoskeletal: reports: denies history Neurological: reports: denies history Psychiatric: reports: anxiety Endocrine/Immune: reports: Diabetes Other Conditions: reports: denies history - PRIOR SURGERIES/PROCEDURES Surgical/Procedure History: reports: cardiac stent (09/2014), hysterectomy, back/neck (back) - PRIOR HOSPITALIZATIONS Prior Hospitalizations: reports: for other non-related - IMMUNIZATION STATUS Childhood Immunizations: See Nurse Assessment Flu Vaccine: See Nurse Assessment - FAMILY HISTORY Family History: reviewed, not pertinent - SOCIAL HISTORY Smoking: non-smoker Substance Use: none/never Physical Exam-General - PHYSICAL EXAM-ADULT Initial Vital Signs Reviewed: Yes - CONSTITUTIONAL General Appearance: appears well, alert, no apparent distress. negative: slow to respond, obtunded, combative - EYES Eyes: PERRL/EOMI, pink conjunctivae - HEAD, EARS, NOSE, MOUTH & THROAT HENMT: normocephalic/atraumatic, moist mucous membranes, normal ENT inspection - NECK Neck: non-tender, full range of motion, supple, normal inspection - RESPIRATORY Respiratory: chest non-tender, normal breath sounds, crackles (bilat). negative: lungs clear, rales, rhonchi, stridor, wheezing - CARDIOVASCULAR Cardiovascular: normal peripheral pulses, regular rate, rhythm, no edema, no ga llop, no JVD, systolic murmur. negative: no murmur, bradycardia, tachycardia, diastolic murmur - GASTROINTESTINAL (ABDOMEN) Abdominal Exam: normal bowel sounds, non tender, soft. negative: guarding, rigid, rebound - LYMPHATIC Lymphatic: no adenopathy - MUSCULOSKELETAL Back Exam: normal inspection, no CVA tenderness, no vertebral tenderness Extremity: normal range of motion, non-tender, pedal edema (+3 bilat). negative: normal inspection, no pedal edema, deformity, erythema, inflammation Peripheral Pulses: radial (R): 2+, radial (L): 2+ - SKIN Integumentary: normal color, normal turgor, warm/dry - NEUROLOGIC Neurologic: grossly normal, no motor/sensory deficits - PSYCHIATRIC Psych/Mental Status: normal mood/affect, normal thought content, normal thought process, oriented x 3 Progress - PLAN OF CARE/RESULTS Progress/Plan/Lab Results: Vital Signs - 8 hr 09/09/18 17:33 09/09/18 18:04 Temperature 97.8 F Pulse Rate 83 84 Respiratory Rate 20 20 Blood Pressure 161/66 179/81 O2 Sat by Pulse Oximetry 88 L 94 L Orders Category Date Time Status CBC WITH DIFF [HEME] Stat Lab 09/09/18 18:44 Uncollected CMP [COMPREHENSIVE METABOLIC PANEL] [CHEM] Stat Lab 09/09/18 18:44 Uncollected TROPONIN T Stat Lab 09/09/18 18:44 Uncollected Aspirin Med 09/09/18 18:43 Discontinued 325 mg PO NOW ONE Heart score 5 , Hx suspicious, risk factors: Hx of ACS, HTN, DM, Age, HLP. will admit for cardiac workup. Result Diagrams: 09/09/18 18:02 09/09/18 18:02 - EKG 1 Time of EKG reading by physician:: 18:02 EKG Read and Signed by:: Sachin Hoffman EKG Interpretation (*Must complete 3 of following elements*): Normal Rate: 85 Rhythm: NSR Spurger: normal QRS: normal [place] Interval: normal ST Wave: normal - CONSULTS/PCP/HOSPITALIST Notification #1 *Consult/PCP/Hospitalist*: Dr. Wilson Time Discussed: 20:13 Consult Disposition: Admit (Hx, PE and patient care discussed, accepted.) Departure - Departure Date of Disposition Decision: 09/09/18 Time of Disposition Decision: 19:37 DIAGNOSIS: ANA (acute kidney injury) Chest pain Qualifiers: Chest pain type: unspecified Qualified Code(s): R07.9 - Chest pain, unspecified Disposition: ADMITTED INPATIENT 09 Certified Medical Emergency: Emergent Condition: Stable - Critical Care Note This patient required my direct & personal management of CC.: No Attestation - Physician/ OPAL Attestation Patient care was provided by Advanced Practice Provider:: No The physician spent face to face time with patient:: Yes Advanced Practice Provider documentation review:: Supervising physician onsite and consulted in the evaluation and care of this patient. The physician did have a face to face encounter with the patient. This chart was documented by the indicated scribe, (Elizabeth Hernandez Scribe) and accurately reflects the services I performed and decisions made by me, Stefan Weiss MD, as attested by the provider's signature.
[2018-09-10] MEDS ORDERED: NS 1,000 ML IV SCH (00:30)
[2018-09-10] MEDS: HUMULIN R SUBQ SCH ×4 (06:26→21:42)
[2018-09-10] MEDS: PRILOSEC PO SCH (06:27)
[2018-09-10 07:41] LABS: CHOLESTEROL 112 mg/dL (0-200); HDL 34 mg/dL (45-65); LDL 47 mg/dL; TRIGLYCERIDES 153 mg/dL (35-135); VLDL 31 mg/dL
[2018-09-10] MEDS ORDERED: ASPIRIN PO SCH (09:00)
--- NOTE | 2018-09-10 09:02 | EKG Report ---
Test Performed on : 09/09/2018 6:00:52 PM Test Reason : ED. NO EKG ORDER FOR MUSE Blood Pressure : / mmHG Vent. Rate : 085 BPM Atrial Rate : 085 BPM P-R Int : 176 ms QRS Dur : 080 ms QT Int : 350 ms P-R-T Axes : 031 -20 052 degrees QTc Int : 416 ms Normal sinus rhythm. Normal ECG When compared with ECG of 18-SEP-2016 15:47, No significant change was found Unconfirmed Result
[2018-09-10] MEDS ORDERED: TYLENOL WITH CODEINE #3 PO PRN (14:07)
[2018-09-10] MEDS ORDERED: NITROGLYCERIN SL PRN (14:07)
[2018-09-10 14:44] LABS: CALCIUM 9.6 mg/dL (8.8-10.2); CREATININE 1.6 mg/dL (0.5-0.9); POTASSIUM 5.4 mmol/L (3.5-5.1)
[2018-09-10] MEDS: COREG PO SCH (16:57)
[2018-09-10] MEDS: IMDUR PO SCH (16:57)
[2018-09-10] MEDS ORDERED: CARDIZEM CD PO ONE (17:49)
--- NOTE | 2018-09-10 18:08 | PROGRESS NOTE ---
DATE: 09/10/2018 INTERVAL HISTORY: Ms. Butler was admitted overnight for acute kidney injury and chest pain. Apparently, patient does have prior history of coronary artery disease status post stent in 2016. Twelve hours prior to presentation, patient suddenly started having chest pain in the center of the chest, radiating both sideways, dull in nature, without any exacerbating or relieving factor. She also had associated shortness of breath and increased leg swelling which has been ongoing on and off since about 1 month. In the emergency room, her EKG and troponins were unremarkable. She was admitted for further management. SUBJECTIVE: Currently she is denying any more chest pain or feelings of shortness of breath. The patient's son is at bedside. I discussed my examination finding of acute kidney injury, possible medication contributing to it, and I answered all of their questions. OBJECTIVE: Current Vitals: Temperature 97.9 degrees, pulse 87, respiratory rate 19, blood pressure is 189/76, saturating 95% on room air. On physical examination, morbidly obese, not in any acute distress. Oral cavity is moist. Air entry decreased in bilateral infrascapular region with inspiratory crackles. No wheeze or rhonchi. S1, S2 normal. No murmur, rub, or gallop. Abdomen is obese, soft, nontender. Bilateral lower extremity edema, more prominent on the right side extending up to knee. LABORATORIES: Significant for mild leukocytosis, normal hemoglobin, hematocrit, and platelet count. Hyperkalemia which is improving, acute kidney injury which is also improving. Her lipid panel had suggested LDL of 47. Troponins have been negative. MICROBIOLOGY: No data. IMAGING: Chest x-ray on admission had a mild bibasilar subsegmental atelectasis. DIAGNOSTIC STUDIES: EKG had suggested normal sinus rhythm. ASSESSMENT AND PLAN: 1. Chest pain with prior history of coronary artery disease requiring stenting approximately in 2016. Her EKG and troponins are unremarkable, and she had myocardial perfusion scan nuclear medicine in 2018, which did not have any acute pathology, so my suspicion of coronary artery disease is less. I will continue as-needed nitroglycerin. 2. Acute kidney injury. She denies any nausea, vomiting, or diarrhea. Her use of spironolactone could have contributed to acute kidney injury, which might have also contributed to hyperkalemia. She denies using Lasix at home. She is status post intravenous fluid resuscitation with improvement in potassium and BMP level and ANA. I will follow up with BMP tomorrow. Continue to hold spironolactone. 3. She also has baseline chronic kidney disease, stage 3. 4. Others: I will continue home isosorbide, carvedilol, and diltiazem for essential hypertension. Will also continue home aspirin and statin for history of coronary artery disease. She did have echocardiogram last year with ejection fraction of 70%. 5. Add omeprazole for symptoms of acid reflux, which might be contributing to her chest pain. DISPOSITION: The patient remains inside the hospital as I monitor her kidney function, and if no other cardiovascular intervention is planned, my plan is to discharge her home within next 24 hours. Plan of care discussed with the patient and her son at bedside. All of their questions have been answered. cc: Eric De Souza MD MTDD
[2018-09-10] MEDS ORDERED: LIPITOR PO SCH (21:00)
[2018-09-11] MEDS: COREG PO SCH (03:53)
[2018-09-11] MEDS: HUMULIN R SUBQ SCH ×2 (05:31→12:29)
[2018-09-11] MEDS: PRILOSEC PO SCH (06:23)
[2018-09-11 07:40] LABS: BASO# 0.03 X1000 (0.0-0.2); BASO% 0.4 % (0.0-0.8); EOS# 0.37 X1000 (0.0-0.7); EOS% 4.9 % (0.0-10.0); HEMOGLOBIN 11.5 g/dL (12.0-16.0); IMM GRAN# 0.08 X1000 (0.0-0.04); IMM GRAN% 1.1 % (0.0-0.5); LYMPH# 1.54 X1000 (1.2-3.4); LYMPH% 20.5 % (20.5-51.1); MCH 29.9 PG (27-31); MCHC 31.1 g/dL (33-37); MCV 96.4 FL (81-99); MONO# 0.62 X1000 (0.11-0.59); MONO% 8.3 % (1.7-9.3); MPV 10.4 FL (7.4-10.4); NEUT# 4.86 X1000 (1.4-6.5); NEUT% 64.8 % (42.2-75.2); PLT 211 X1000 (130-400); RBC 3.84 XMIL (4.2-5.4); RDW 13.6 % (11.5-14.5)
[2018-09-11 08:07] LABS: CALCIUM 9.1 mg/dL (8.8-10.2); CREATININE 1.4 mg/dL (0.5-0.9); POTASSIUM 4.9 mmol/L (3.5-5.1)
[2018-09-11] MEDS ORDERED: GLUCOTROL PO SCH (09:00)
[2018-09-11] MEDS ORDERED: ASPIRIN PO SCH (09:00)
[2018-09-11] MEDS ORDERED: CARDIZEM CD PO SCH (09:00)
[2018-09-11] MEDS: IMDUR PO SCH (09:03)
--- NOTE | 2018-09-11 09:04 | PROGRESS NOTE ---
DATE: 09/11/2018 SUBJECTIVE: No acute events overnight. She is not complaining of chest pain at this moment, apparently during admission her chest pain was dual but nonspecific in the middle of the chest, her troponin has been negative x3. Her kidney function looks like baseline. Today, BUN normalized, glucose level is controlled and the hyperkalemia is resolved, we have been holding the spironolactone. OBJECTIVE: Vital Signs: Temperature 97.9 degrees, pulse 73, respiratory rate 16, blood pressure 145/56, oxygen saturation 96 on room air. HEENT: Head normocephalic, no trauma. PERRLA. Neck: Supple. No JVD. No masses. Central trachea. Chest: Clear to auscultation. Some crepitus and rales at the bases. Abdomen: Soft, nontender, nondistended. No hepatosplenomegaly. Extremities: Trace edema. No clubbing. No cyanosis. Neurological: The patient is alert and oriented x3. No focal neurological deficits. LABORATORY DATA: WBC 7.5, hemoglobin 11.5, hematocrit 37, platelets 211,000. Sodium 140, potassium 4.9, chloride 108, bicarbonate 21, BUN 20, creatinine 1.4, glucose 132, calcium 9. ASSESSMENT AND PLAN: 1. Chest pain in a patient with history of coronary artery disease requiring stenting, I believe in 2016, EKG and troponins are okay. She had a stress test done on 11/15/2017 that did not show any acute abnormality. I do believe she is stable. I do believe probably she can be discharged in the next 24 hours if Cardiology Department agree with that. 2. Acute kidney injury, back to her baseline. She denied any nausea, vomiting, diarrhea at home. We have stopped the spironolactone due to her hyperkalemia and acute kidney injury, and it looks like she is better, she is not using Lasix at home, she received some IV fluids in the emergency department and she seems to be doing better. 3. Chronic kidney disease stage 3. This is her baseline. 4. Hyperkalemia, resolved. 5. Hypertension. Continue with the same management. 6. History of coronary artery disease. Continue with aspirin and statin. Echocardiogram last year showed an ejection fraction of 70%. 7. Gastroesophageal reflux disease. Continue with proton pump inhibitors. 8. Overall, this patient is doing good. I believe she can be discharged in the next 24 hours if Cardiology department is okay. She is feeling better. I will wait for recommendations. cc: Von Fuchs MD
[2018-09-11 11:14] VITALS: BP 142/52
--- NOTE | 2018-09-11 13:09 | CARDIOLOGY CONSULTATION ---
DATE: 09/11/2018 REASON FOR CONSULTATION: Cardiology was consulted for chest pain. HISTORY OF PRESENT ILLNESS: Ms. Anaid Butler is an 82-year-old lady who comes with complaints of having had some chest pain which she describes as sharp in character, however she has also noticed increasing cough with mucoid to mucopurulent expectoration. She also has had some shortness of breath. There are no palpitations. There is no dizziness or syncope, and she also had some pedal edema. REVIEW OF SYSTEM: Gastrointestinal: There is no history of nausea, vomiting, diarrhea. There is no history of hematemesis or melena. Central nervous system: No focal weakness to suggest a CVA or TIA. Genitourinary: There is no dysuria or hematuria. PAST MEDICAL HISTORY: 1. Coronary artery disease. Last cardiac catheterization 09/24/2014. The patient had a drug- eluting stent to the mid left anterior descending artery and mid ramus again treated with a drug-eluting stent. 2. History of heart failure. 3. History of atrial fibrillation. 4. History of falls and unsteady gait. 5. History of heart failure. 6. Hypertension. 7. Diabetes. 8. Renal insufficiency. 9. Back surgeries. HOME MEDICATIONS: Include aspirin 81 mg a day, spironolactone 25, atorvastatin 40, isosorbide mononitrate 30, Glipizide 5, Coreg 12.5 b.i.d., Cardizem 180. ALLERGIES: She is allergic to latex, iodine, sulfonamides. PHYSICAL EXAMINATION: Vital Signs: Blood pressure was 145/56. Cardiovascular: Normal jugular venous pressure. Neck: There no thyromegaly. No carotid bruit. Cardiovascular: First and second heart sounds were heard. There was no S3 gallop. Respiratory: Scattered wheeze noted. Abdomen: Soft, nontender. There was no guarding or rigidity. Bowel sounds were heard. Central nervous system: Alert and was moving all 4 extremities. Extremities: Revealed trace edema. ASSESSMENT AND PLAN: Ms. Anaid Butler is an 82-year-old lady with history of coronary artery disease, history of heart failure, atrial fibrillation in the past. Has had history of frequent falls, is not anticoagulated for that reason. Underwent cardiac catheterization 2014, had a drug-eluting stent to the mid left anterior descending artery and mid ramus. Her electrocardiogram revealed normal sinus rhythm. There was no ST-T changes to suggest ischemia. She was ruled out for myocardial infarction by cardiac enzymes. Chest x-ray revealed mild basilar atelectasis. Cardiac enzymes were negative. Potassium was elevated. She has mild renal insufficiency which has been chronic. RECOMMENDATIONS: 1. From a cardiac standpoint, discontinue the Aldactone given the elevated potassium. Her renal function has improved overnight. She has chronic renal insufficiency. 2. Symptoms more suggestive of respiratory tract infection. Would recommend antibiotics, Levaquin. 3. Continue with all her home medications. 4. I will see her as an outpatient in 1 to 2 weeks. Thank you for the consult. We will follow hospital course. cc: Heriberto Henderson MD
--- NOTE | 2018-09-12 05:49 | DISCHARGE SUMMARY ---
ADMISSION DATE: 09/09/2018 DISCHARGE DATE: 09/11/2018 PRIMARY CARE PHYSICIAN: Dr. Tony. ADMISSION DIAGNOSES: 1. Chest pain. 2. Acute kidney injury. 3. Diabetes type 2. 4. Hypertension. 5. Congestive heart failure, unspecified. DISCHARGE DIAGNOSES: 1. Chest pain in a patient with a history of coronary artery disease, ruled out for myocardial infarction. 2. Acute kidney injury, resolved. 3. Chronic kidney disease stage 3. 4. Hypertension. 5. History of coronary artery disease. 6. Gastroesophageal reflux disease. SUMMARY OF FINDINGS: This is an 82-year-old female who presents to the emergency room with a one day history of chest pain, described it as a pressure-like pain that caused some shortness of breath. She also noted some swelling in her legs. She was admitted. She was found to have some acute kidney injury with a creatinine on arrival of 2.4 with a BUN of 33. She had been on spironolactone and is also noted to have some hyperkalemia on arrival at 5.7, so we held the spironolactone. We gave some IV fluid resuscitation and had improvement in the potassium and the acute kidney injury. She had an echocardiogram last year that showed an ejection fraction of 70%, and we consulted Cardiology, who is in agreement that she can be safely discharged home today. DISCHARGE MEDICATIONS: Acetaminophen with codeine #4, one p.o. q.6 hours p.r.n., aspirin 81 mg p.o. daily, atorvastatin 40 mg p.o. at bedtime, Coreg 12.5 mg p.o. q.12 hours, Cardizem CD 180 mg p.o. daily, glipizide 5 mg p.o. daily, Imdur 30 mg p.o. daily, Nitrostat 0.4 mg sublingually p.r.n., omeprazole 20 mg p.o. daily, vitamin D2 50,000 units p.o. as directed, Icar-C Plus as directed, Levaquin 500 mg p.o. daily, #5 with no refills, Ativan 0.5 mg p.o. as directed. FOLLOWUP: She needs to follow up with her primary care physician in the next 1 to 2 weeks. She needs to follow up with Cardiology, Dr. Henderson, in the next 1 to 2 weeks. Call both the offices to set up her appointment times. All discharge instructions have been reviewed with the patient and she verbalized understanding. We, again, told her to stop her spironolactone. TIME SPENT WITH PATIENT: A 33 minute discharge. Dictated by SHEREE Garland for Von Fuchs MD cc: SHEREE Garland MD Michael Putman, MD Ashish K. Basu, MD
== END 2018-09-11 12:54 | disposition home or self-care (01) | DRG 683 ==
LOC: ED 17:30 → SUATTDRO 21:40 → 3N 21:40
PROVIDERS: ATTEND Internal Medicine
CPT/HCPCS: 71020; 71046; 80048; 80053; 80061; 82550; 82948; 83880; 84484; 85025; 85610; 85730; 93005; 99285; A9270; J7030; XXXXX

== ENCOUNTER 2019-04-02 10:26 | Inpatient (IN) ==
--- NOTE | 2019-04-02 10:33 | PROVIDER DOCUMENTATION ---
HPI-General Adult - General Stated Complaint: R HIP PAIN Time Seen by Provider: 04/02/19 10:32 Source: patient Allergies/Adverse Reactions: Patient Allergies Allergy/AdvReac Type Severity Reaction Status Date / Time latex Allergy RASH Verified 09/15/16 09:48 povidone-iodine Allergy RASH Verified 09/15/16 09:48 [From Betadine] soap * [From Betadine] Allergy RASH Verified 09/15/16 09:48 Sulfa (Sulfonamide Allergy RASH Verified 09/15/16 09:48 Antibiotics) Home Medications: Home Medication List Medication Instructions Recorded Confirmed Last Taken Type ATORVAstatin [Lipitor] 40 mg PO QHS 10/15/14 04/02/19 04/01/19 20:30 History Isosorbide Mononitrate E.r. [Imdur] 30 mg PO DAILY 10/15/14 04/02/19 04/02/19 07:30 History Aspirin 81 mg PO DAILY #30 chewtab 10/25/14 04/02/19 04/02/19 07:30 Rx Acetaminophen with Codeine 1 each PO Q6HR PRN 09/15/16 04/02/19 04/02/19 07:30 History [Acetaminophen-Cod #4 Tablet] Glipizide 5 mg PO DAILY 09/15/16 04/02/19 04/02/19 07:30 History Iron Carbonyl/Vit C/Vit B12/FA 1 each PO DIRECTED 09/15/16 04/02/19 04/02/19 07:30 History [Icar-C Plus] Lorazepam [Ativan] 0.5 mg PO DIRECTED 09/15/16 04/02/19 04/02/19 07:30 History Nitroglycerin Sl [Nitroglycerin] 0.4 mg SL PRN PRN 09/15/16 04/02/19 Unknown History Carvedilol [Coreg] 12.5 mg PO Q12H #60 tablet 09/25/16 04/02/19 04/02/19 07:30 Rx Diltiazem HCl [Cardizem Cd] 180 mg PO DAILY 09/10/18 04/02/19 04/02/19 07:30 History Ergocalciferol (Vitamin D2) 50,000 unit PO DIRECTED 09/10/18 04/02/19 Unknown History [Vitamin D2] Levofloxacin [Levaquin] 500 mg PO DAILY #5 tab 09/11/18 04/02/19 04/02/19 07:30 Rx Omeprazole [Prilosec] 20 mg PO DAILY@0700 #90 cap 09/11/18 04/02/19 04/02/19 07:30 Rx - History of Present Illness -Gen Adult Nature of Presenting Problems: Pt. is 83 yof that presents with c/o right hip pain after falling on Saturday. Pt. reports she has been falling recently and doesn't know why. She denies any other complaints. Location of Pain/Injury: reports: pelvis (Right hip). denies: none, head, face, mouth, neck, chest, upper extremity, hand(s), abdomen, back, genitalia, lower extremity, feet, upper body, lower body, generalized, other Pain Radiation: reports: no radiation. denies: arm(s), back, buttocks, chest, epigastric, feet, groin, jaw, flank (L), legs (lower), LLQ, LUQ, neck, periumbilical, flank (R), RLQ, RUQ, shoulder(s), scapula, scrotal, sternal notch, suprapubic, legs (upper), urethral, vaginal, other Quality of Pain: reports: aching. denies: burning, sharp, tightness Severity: reports: mild. denies: moderate, severe Onset/Duration: reports: gradual, 1 week ago Timing: reports: still present. denies: improving, intermittent, getting worse Context/Activities at Onset: reports: light activity, recent trauma history. denies: none, moderate activity, vigorous activity, recent emotional stress, recent physical stress, possible bad food, cold exposure, eating, out of country travel, rest, sleep, sexual activity, other Modifying Factors: improves with: immobilization. worse with: movement Associated Symptoms: reports: joint pain. denies: denies symptoms, anxiety, arm pain, back/neck pain, chest pain, constipation, cough, diaphoresis, diarrhea, dizziness, EENT symptoms, fatigue, fever/chills, genitourinary problems, headaches, heartburn, loss of appetite, malaise, muscle aches, sinus congestion/drainage, nausea, rash, seizure, shortness of breath, sensory/motor loss, pain with inspiration, swelling/mass in abdomen, syncope, vomiting, weakness, trouble walking, other Similar Symptoms Previously?: Yes Recently seen or treated by another doctor?: No Review of Systems - Adult - REVIEW OF SYSTEMS - ADULT Constitutional: reports: no symptoms reported Eyes: reports: no symptoms reported Ears, Nose, Mouth & Throat: reports: no symptoms reported Cardiovascular: reports: no symptoms reported Respiratory: reports: no symptoms reported Gastrointestinal: reports: no symptoms reported Genitourinary: reports: no symptoms reported Musculoskeletal: reports: see HPI, joint pain (Right hip). denies: back pain, muscle aches, neck pain Integumentary: reports: no symptoms reported Neurological: reports: no symptoms reported Psychiatric: reports: no symptoms reported Past History - Adult - PAST MEDICAL HISTORY-ADULT Review of Records: reports: Old Records Reviewed, Nursing Assessment Review, Medications Reviewed, Social history reviewed & non-contributory. Major Childhood Illnesses: reports: denies history Cardiovascular: reports: cardiac disease, A-Fib, blood clots, HTN, [place] (09/21/14) Respiratory: reports: denies history Gastrointestinal: reports: denies history Obstetrical/Gynecological: reports: denies history Genitourinary: reports: denies history Musculoskeletal: reports: denies history Neurological: reports: denies history Psychiatric: reports: anxiety Endocrine/Immune: reports: Diabetes Other Conditions: reports: denies history - PRIOR SURGERIES/PROCEDURES Surgical/Procedure History: reports: cardiac stent (09/2014), hysterectomy, back/neck (back) - PRIOR HOSPITALIZATIONS Prior Hospitalizations: reports: for other non-related - IMMUNIZATION STATUS Childhood Immunizations: See Nurse Assessment Flu Vaccine: See Nurse Assessment - FAMILY HISTORY Family History: reviewed, not pertinent - SOCIAL HISTORY Smoking: denies Physical Exam-General - PHYSICAL EXAM-ADULT Initial Vital Signs Reviewed: Yes - CONSTITUTIONAL General Appearance: alert, no apparent distress. negative: anxious, slow to respond, obtunded, combative - EYES Eyes: PERRL/EOMI, pink conjunctivae - HEAD, EARS, NOSE, MOUTH & THROAT HENMT: normocephalic/atraumatic, moist mucous membranes - NECK Neck: non-tender, full range of motion, supple, normal inspection - RESPIRATORY Respiratory: lungs clear, normal breath sounds - CARDIOVASCULAR Cardiovascular: normal peripheral pulses, regular rate, rhythm, no edema - GASTROINTESTINAL (ABDOMEN) Abdominal Exam: normal bowel sounds, non tender, soft - LYMPHATIC Lymphatic: no adenopathy - MUSCULOSKELETAL Back Exam: normal inspection, no CVA tenderness, no vertebral tenderness Extremity: normal range of motion, normal gait, normal inspection, tenderness (Right hip). negative: deformity, erythema, inflammation, swelling Peripheral Pulses: radial (R): 2+, radial (L): 2+ - SKIN Integumentary: normal color, normal turgor, warm/dry - NEUROLOGIC Neurologic: grossly normal, no motor/sensory deficits - PSYCHIATRIC Psych/Mental Status: normal mood/affect, normal thought content, normal thought process, oriented x 3. negative: anxious, paranoid, tearful Progress - PLAN OF CARE/RESULTS Progress/Plan/Lab Results: Laboratory Tests 04/02/19 04/02/19 10:57 10:57 WBC 8.60 RBC 4.57 Hgb 13.2 Hct 44.0 MCV 96.3 MCH 28.9 MCHC 30.0 L RDW Std Deviation 14.8 H Plt Count 309 MPV 10.8 H Immature Gran % (Auto) 0.7 H Neut % (Auto) 73.9 Lymph % (Auto) 13.3 L Pickett % (Auto) 5.3 Eos % (Auto) 6.2 Baso % (Auto) 0.6 Immature Gran # (Auto) 0.06 H Neut # (Auto) 6.36 Lymph # (Auto) 1.14 L Pickett # (Auto) 0.46 Eos # (Auto) 0.53 Baso # (Auto) 0.05 Sodium 142 Potassium 4.3 Chloride 102 Carbon Dioxide 23 L Anion Gap 17 BUN 28 H Creatinine 1.6 H Estimated GFR/1.73 m2 31 BUN/Creatinine Ratio 18 Glucose 191 H Calculated Osmolality 294 Calcium 9.8 Total Bilirubin 0.63 AST 12 ALT 6 L Alkaline Phosphatase 268 H Creatine Kinase 29 Total Protein 6.6 Albumin 3.5 Globulin 3.1 Albumin/Globulin Ratio 1.1 Dr. Waite at bedside for evaluation. Discussed results and plan of care with patient. Patient agrees with plan and verbalizes understanding. Result Diagrams: 04/02/19 10:57 04/02/19 10:57 - XRAY 1 XRAY Study: Pelvis ([facility] - [address] , [address], [place] [address] [facility] - [address] [place] [address] Department of Imaging Patient: ERIN BARRETO Date: 04/02/19MR#: [id number] : 1935DM Status: REG ERAcct#: [id number] Age/Sex: 83/FRoom/Bed: Loc: ED Ordering Physician: Ari Ovalles Family Physician: Mauricio Tony MD Reason for Procedure: Fall with pain ___ Signed EXAM: XRAY HIP W/PELVIS BILAT 3-4VWS HISTORY: Fall with pain TECHNIQUE: Four views COMPARISON: 03/25/2015 FINDINGS: Prior orthopedic replacement of each hip. No fracture to either proximal femur. Deformity to the right superior pubic ramus extending into the pubic symphysis. This was not present on the prior exam. No change in appearance of either inferior pubic rami. IMPRESSION: Right superior pubic ramus fracture, age indeterminate. Electronically signed by Moose Olivo 04/02/2019 11:22 AM 04/02/19 1122 Interpreting Physician: Moose Olivo MD Dictated Date/Time: 04/02/19 1119 cc: Ari Ovalles; Mauricio Tony MD) XRAY Interpretation: See note - CT/MRI 1 CT Study: Cervical Spine, Head ([facility] - [address] , [address], [place] [address] [facility] - [address] [place] [address] Department of Imaging Patient: ERIN BARRETO Date: 04/02/19MR#: [id number] : [id number] Status: REG ERAcct#: [id number] Age/Sex: 83/FRoom/Bed: Loc: ED Ordering Physician: Ari Ovalles Family Physician: Mauricio Tony MD Reason for Procedure: Fall Signed EXAM : CT HEAD/C-SPINE W/O CONTRAST HISTORY: Fall TECHNIQUE: 1. CT head without contrast 2. CT cervical spine without contrast COMPARISON: None. FINDINGS: Head: No parenchymal hemorrhage. No epidural or subdural hematoma. No subarachnoid hemorrhage. Mild atrophy. No mass identified on this noncontrasted exam. No hydrocephalus. No skull fracture. Cervical spine: There is mild scoliosis. Prior fusion of the lower vertebra. No precervical soft tissue swelling. No subluxation. No acute fracture. IMPRESSION: Head: No hemorrhage. No injury. Cervical spine: No acute fracture. This exam was performed using automated exposure control, adjustment of mA or kV according to patient size, and/or use of iterative reconstruction technique. Electronically signed by Moose Olivo 04/02/2019 11:34 AM 04/02/19 1134 Interpreting Physician: Moose Olivo MD Dictated Date/Time: 04/02/19 1132 cc: Ari Ovalles; Mauricio Tony MD) CT Results: See note 2 CT Study: Pelvis ([facility] - [address] [place] [address] [address], [place] [address] [facility] - [address] [place] [address] Department of Imaging Patient: ERIN BARRETO Date: 04/02/19#: [id number] : 8ADM Status: [facility] ERAcct#: [id number] Age/Sex: 83/FRoom/Bed: Loc: ED Ordering Physician: Ari Ovalles Family Physician: Mauricio Tony MD Reason for Procedure: FALL WITH PELVIC PAIN Signed EXAM: CT PELVIS W/O CONTRAST HISTORY: FALL WITH PELVIC PAIN TECHNIQUE: CT bony pelvis without contrast COMPARISON: Recent plain films FINDINGS: Nondisplaced left sacral fracture. Orthopedic replacement to each hip. Acute fractures to the right superior and inferior pubic rami. Old fractures on the left. Neither hip is dislocated. IMPRESSION: Right superior and inferior pubic rami and left sacral fractures. This exam was performed using automated exposure control, adjustment of mA or kV according to patient size, and/or use of iterative reconstruction technique. Electronically signed by Moose Olivo 04/02/2019 12:26 PM 04/02/19 1226 Interpreting Physician: Moose Olivo MD Dictated Date/Time: 04/02/19 1224 cc: Ari Ovalles; Mauricio Tony MD) CT Results: See note - CONSULTS/PCP/HOSPITALIST Notification #1 *Consult/PCP/Hospitalist*: Dr. Waite Time Discussed: 11:45 Reason/Comments: Consult Consult Disposition: other (Get CT) #2 Consult: Elizabeth for hospitilist Time Discussed: 13:40 Reason/Comments: Admission Consult Disposition: Will see in ED, Admit Departure - Departure Date of Disposition Decision: 04/02/19 Time of Disposition Decision: 13:38 DIAGNOSIS: Hyperglycemia Bilateral pubic rami fractures Qualifiers: Encounter type: initial encounter Fracture type: closed Qualified Code(s): S32.591A - Other specified fracture of right pubis, initial encounter for closed fracture; S32.592A - Other specified fracture of left pubis, initial encounter for closed fracture Chronic renal insufficiency Qualifiers: Chronic kidney disease stage: unspecified stage Qualified Code(s): N18.9 - Chronic kidney disease, unspecified Disposition: ADMITTED INPATIENT 09 Certified Medical Emergency: Emergent Condition: Stable Referrals and Follow-Ups: Mauricio Tony MD [Primary Care Provider] - - Critical Care Note This patient required my direct & personal management of CC.: No Attestation - Physician/ OPAL Attestation Patient care was provided by Advanced Practice Provider:: Yes Advanced Practice Provider:: Ari Ovalles Advanced Practice Provider documentation review:: The Mid-level provider documentation, treatment plan and medical decision making was reviewed by the physician who agrees with all treatment and medical decision making by the MLP. The physician spent face to face time with patient:: No Advanced Practice Provider documentation review:: Supervising physician onsite and consulted in the evaluation and care of this patient. The physician did not have a face to face encounter with the patient.
--- NOTE | 2019-04-02 11:24 | Diag Imaging Result Doc PS360 ---
EXAM: XRAY HIP W/PELVIS BILAT 3-4VWS HISTORY: Fall with pain TECHNIQUE: Four views COMPARISON: 03/25/2015 FINDINGS: Prior orthopedic replacement of each hip. No fracture to either proximal femur. Deformity to the right superior pubic ramus extending into the pubic symphysis. This was not present on the prior exam. No change in appearance of either inferior pubic rami. IMPRESSION: Right superior pubic ramus fracture, age indeterminate. Electronically signed by Moose Olivo 04/02/2019 11:22 AM
[2019-04-02 11:25] LABS: BASO# 0.05 X1000 (0.0-0.2); BASO% 0.6 % (0.0-0.8); EOS# 0.53 X1000 (0.0-0.7); EOS% 6.2 % (0.0-10.0); HEMOGLOBIN 13.2 g/dL (12.0-16.0); IMM GRAN# 0.06 X1000 (0.0-0.04); IMM GRAN% 0.7 % (0.0-0.5); LYMPH# 1.14 X1000 (1.2-3.4); LYMPH% 13.3 % (20.5-51.1); MCH 28.9 PG (27-31); MCV 96.3 FL (81-99); MONO# 0.46 X1000 (0.11-0.59); MONO% 5.3 % (1.7-9.3); MPV 10.8 FL (7.4-10.4); NEUT# 6.36 X1000 (1.4-6.5); NEUT% 73.9 % (42.2-75.2); PLT 309 X1000 (130-400); RBC 4.57 XMIL (4.2-5.4); RDW 14.8 % (11.5-14.5)
[2019-04-02 11:29] LABS: ALB/GLOB RATIO 1.1; ALBUMIN 3.5 g/dL (3.5-5.0); CALCIUM 9.8 mg/dL (8.8-10.2); CREATININE 1.6 mg/dL (0.5-0.9); POTASSIUM 4.3 mmol/L (3.5-5.1); TOTAL BILIRUBIN 0.63 mg/dL (0.20-1.00); TOTAL PROTEIN 6.6 g/dL (6.3-8.3)
--- NOTE | 2019-04-02 11:30 | EKG Report ---
Test Performed on : 04/02/2019 10:45:28 AM Test Reason : weakness Blood Pressure : / mmHG Vent. Rate : 077 BPM Atrial Rate : 077 BPM P-R Int : 148 ms QRS Dur : 080 ms QT Int : 378 ms P-R-T Axes : 009 -17 045 degrees QTc Int : 427 ms Normal sinus rhythm. Minimal voltage criteria for LVH, may be normal variant Anterior infarct , age undetermined Abnormal ECG When compared with ECG of 09-SEP-2018 18:00, No significant change was found Unconfirmed Result
--- NOTE | 2019-04-02 11:37 | Diag Imaging Result Doc PS360 ---
EXAM : CT HEAD/C-SPINE W/O CONTRAST HISTORY: Fall TECHNIQUE: 1. CT head without contrast 2. CT cervical spine without contrast COMPARISON: None. FINDINGS: Head: No parenchymal hemorrhage. No epidural or subdural hematoma. No subarachnoid hemorrhage. Mild atrophy. No mass identified on this noncontrasted exam. No hydrocephalus. No skull fracture. Cervical spine: There is mild scoliosis. Prior fusion of the lower vertebra. No precervical soft tissue swelling. No subluxation. No acute fracture. IMPRESSION: Head: No hemorrhage. No injury. Cervical spine: No acute fracture. This exam was performed using automated exposure control, adjustment of mA or kV according to patient size, and/or use of iterative reconstruction technique. Electronically signed by Moose Olivo 04/02/2019 11:34 AM
--- NOTE | 2019-04-02 12:29 | Diag Imaging Result Doc PS360 ---
EXAM: CT PELVIS W/O CONTRAST HISTORY: FALL WITH PELVIC PAIN TECHNIQUE: CT bony pelvis without contrast COMPARISON: Recent plain films FINDINGS: Nondisplaced left sacral fracture. Orthopedic replacement to each hip. Acute fractures to the right superior and inferior pubic rami. Old fractures on the left. Neither hip is dislocated. IMPRESSION: Right superior and inferior pubic rami and left sacral fractures. This exam was performed using automated exposure control, adjustment of mA or kV according to patient size, and/or use of iterative reconstruction technique. Electronically signed by Moose Olivo 04/02/2019 12:26 PM
--- NOTE | 2019-04-02 14:15 | ORTHOPAEDICS CONSULTATION ---
DATE: 04/02/2019 SERVICE: Orthopedic Surgery. CONSULT FROM: [facility]. REASON FOR CONSULTATION: Pelvic ring injury. PAST MEDICAL HISTORY: 1. Diabetes. 2. Hypertension. 3. Chronic low back pain. 4. Chronic kidney disease. 5. Coronary artery disease with HI in the past. 6. GI bleed. 7. History of blood clots. PAST SURGICAL HISTORY: 1. Bilateral hip hemiarthroplasties secondary to fracture. 2. Hysterectomy. 3. Lumbar spine surgery x4. MEDICATIONS: 1. Isosorbide mononitrate. 2. Atorvastatin. 3. Glipizide. 4. Nitroglycerin. 5. Ativan. 6. Coreg. 7. Vitamin D3. 8. Cardizem. 9. Levaquin. 10. Prilosec. ALLERGIES: No known drug allergies. SOCIAL HISTORY: Patient lives in [place]. Her son and [id number] live with her. She uses a rolling walker to get around. She states she is not very active and does not get out of the house very often. She denies any tobacco, alcohol, or drug use. FAMILY HISTORY: Noncontributory. REVIEW OF SYSTEMS: Ten point review of systems negative other than what is listed in the history of present illness. CHIEF COMPLAINT: Pelvic fracture. HISTORY OF PRESENT ILLNESS: Ms. Butler is an 83-year-old female who presented to [facility] today after sustaining a same-level fall at home. Patient states she was getting out of the bath and went to reach for a towel when she fell backwards. She reports pain in both the left and right side of the pelvis. Please note, the fall occurred 6 days ago. Since that time, she has been very slow to mobilize and has only taken a few steps around the house. She presented to the ER today with this continued pain. The patient states she has had multiple falls in the past, two of which resulted in hip fractures. She denies hitting her head or any loss of consciousness. The patient has a history of blood clots in the past. She has been on anticoagulation in the past and was most recently on Brilinta. However, her primary care physician stopped this as they had a concern for a GI bleed. Patient states she is supposed to be getting a colonoscopy to further work this up. PHYSICAL EXAMINATION: General: Ms. Butler is an 83-year-old, female. Appears well nourished and well developed. No acute distress. She is awake, alert, and oriented x3. She is very polite and cooperative during the examination. Vital Signs: Temperature 98.7 degrees Fahrenheit, heart rate is 88, respiratory rate 16, blood pressure 153/85, O2 saturation 97% on room air. HEENT: Normocephalic and atraumatic. Respiratory: Nonlabored breathing. Cardiovascular: Regular rate and rhythm. Extremities: Examination of bilateral lower extremity shows skin intact. Patient has ecchymosis along the posterior aspect of her left buttocks. She has tenderness to palpation over the anterior hemipelvis. She also has tenderness over her left sacrum. She is nontender over the left anterior hemipelvis. No pain with log roll of the hips. Thigh and calf were soft and compressible. Motor is intact, EHL, tibialis anterior, gastrocsoleus complex. Sensation intact to light touch, L3 to S1. Dorsalis pedis pulse palpable and equal bilaterally. LABORATORY DATA: White count is 9, hemoglobin 13, hematocrit is 44, platelets 309,000. Sodium 142, potassium 4.3, chloride 102, carbon dioxide 23, BUN is 28, creatinine is 1.6, glucose 191. IMAGING DATA: AP of pelvis and lateral of the right hip were reviewed, demonstrating right superior, inferior pubic ramus fractures. CT scan of the pelvis was also reviewed, demonstrating a right acute superior and inferior pubic rami fractures as well, as left zone 1 sacral fracture. ASSESSMENT: An 83-year-old female with right superior and inferior pubic rami fractures, and left zone 1 sacrum fracture. PLAN: A long discussion was had with the patient and family regarding diagnosis and treatment options. Given her fracture pattern, she should be okay to be weightbearing as tolerated to bilateral lower extremities. She was having significant pain with mobilization so I recommend admission to the hospitalist service. Physical therapy will need to work with her on gait training and mobilization. Once she gets up and walks, we will get post ambulation films to confirm no displacement of the fracture site. She will need to be on chemical anticoagulation for at least 6 weeks, given her pelvic ring injury. I will defer to the hospitalist's recommendations on chemical anticoagulation, given her history of a GI bleed. I told the patient and family that it usually takes about 3 months for fractures to fully heal. However, typically, after the first 6 weeks, the pain should be much improved. If she is slow to mobilize, she may be a good candidate for a nursing home facility versus inpatient rehab. We will continue to follow the patient along while she is in-house.
[2019-04-02 14:22] LABS: URINE SOURCE CATH
[2019-04-02 14:25] LABS: BILIRUBIN URINE NEGATIVE (NEGATIVE); BLOOD URINE NEGATIVE (NEGATIVE); COLOR YELLOW; GLUCOSE URINE NEGATIVE (NEGATIVE); KETONE URINE NEGATIVE (NEGATIVE); LEUKOCYTES URINE NEGATIVE (NEGATIVE); NITRITE URINE NEGATIVE (NEGATIVE); PH URINE 5.5; PROTEIN URINE TRACE mg/dL (NEGATIVE); SP GRAVITY URINE 1.023; TURBIDITY URINE CLEAR (CLEAR); UROBILINOGEN URINE 2 mg/dL (NORMAL)
[2019-04-02 14:27] LABS: UR EPITHELIAL CELLS <10 /HPF (<10); URINE BACTERIA NEGATIVE /HPF; URINE RBC <10 /HPF (<10); URINE WBC <10 /HPF (<10)
[2019-04-02] MEDS ORDERED: ZOFRAN IV PRN (15:10)
[2019-04-02] MEDS ORDERED: TYLENOL PO PRN (15:10)
[2019-04-02] MEDS ORDERED: ICAR-C PLUS PO SCH (15:15)
[2019-04-02] MEDS ORDERED: VITAMIN D PO SCH (15:15)
--- NOTE | 2019-04-02 16:46 | HISTORY AND PHYSICAL ---
HISTORY OF PRESENT ILLNESS: This is a patient of Dr. Mauricio Tony. She is an 83 year old with history of diabetes mellitus type 2, hypertension, coronary artery disease and congestive heart failure. She presented to the emergency department with a one-day history of having chest pain described as pressure like. This was last admission. At this time she comes in, she has had several falls. The last one was on Saturday, this is on a , so almost a week ago. She is not able to bear weight or stand. She has pain, especially in that right anterior pelvis, radiates into the back and through her hip. She denies any focal neurologic changes. No fever or chills. No chest pain or palpitations. No gross hematuria or dysuria. They have been watching her blood count. She has a normocytic anemia that they watched for a while and they have decided to hold the Brilinta because of her risk of fall. PAST MEDICAL HISTORY: 1. Diabetes mellitus type 2. 2. Hypertension. 3. Coronary artery disease. 4. Congestive heart failure. 5. Hyperlipidemia. PAST SURGICAL HISTORY: 1. Coronary artery stent in the past back in 2016. 2. Hysterectomy. 3. Back surgery. 4. Bilateral hip surgery. 5. Cataract surgery. ALLERGIES: Latex, povidone and iodine soap and sulfa medications. MEDICATIONS: Reviewed her list of medications. SOCIAL HISTORY: No history of smoking, alcohol or illicit drugs. FAMILY HISTORY: Positive for coronary artery disease in her father. REVIEW OF SYSTEMS: General: She is not aware of any weight gain or loss. No fever or chills. HEENT: No change in visual or hearing acuity. Neck: No neck pain. No adenopathy. Respiratory: No increased work of breathing or dyspnea. Cardiovascular: No chest pain or tachy palpitation. Gastrointestinal and Genitourinary: No gross hematuria or dysuria. Musculoskeletal and Neurologic: No significant complaints. Endocrinologic/Hematologic: No significant history. PHYSICAL EXAMINATION: VITAL SIGNS: In the emergency room she is awake, alert, oriented x3. Temperature 98.7 degrees, pulse 70, respirations 18, blood pressure 130/68. HEENT: She has some eczematous type rash on her forehead. Apparently, her rehabilitation caseworker has done cryo therapy on this in the past. Oral and nasal mucosa are moist. Conjunctivae pink. Sclerae clear. CVP less than 6 cm. LUNGS: Clear in all lung suggs. CARDIOVASCULAR: Regular rhythm and rate without murmur or S3. ABDOMEN: Soft. SKIN: Warm and dry. She has discomfort when rotating and flexing her hips and mainly in the pelvis, the right more than the left. No pedal edema. Oral and nasal mucosa without any mucosal lesions. LABORATORY DATA: White count 8600, hematocrit is 44, platelet count 309,000. Sodium 142, potassium 4.3, chloride 102, BUN 28, creatinine 1.6, calcium is 9.8, AST is 12, ALT is 6, CK is 29. Urinalysis unremarkable. IMAGING: Head and cervical spine CT: There is mild scoliosis, prior fusion of lower vertebrae, no paracervical soft tissue swelling. No subluxation. Head without any hemorrhage and cervical spine without any fracture. Hip and pelvic x-rays: Right superior pubic ramus fracture, age indeterminate. Pelvic CT reveals right superior and inferior pubic rami and left sacral fractures. ASSESSMENT AND PLAN: 1. Right superior and inferior pubic rami and left sacral fractures. A lot of pain. She is on the bed, unable to bear weight, unable to ambulate and she will need to go to get some help at rehab. 2. Increased risk of fall. Very weak. She has had another fall less than a week ago. We are going to hold any significant antiplatelet or anticoagulant as her risks are higher than the benefits. 3. History of coronary artery disease. She has had stents placed in 2016. She was on Brilinta for a while and that has been held. 4. History of deep venous thrombosis in the past, but she does not have any evidence of deep venous thrombosis at the present time. 5. History of congestive heart failure. Appears well compensated. 6. History of hypertension. 7. Hyperlipidemia. 8. History of diabetes mellitus type 2. We will put her on pattern sugars and probably ought to check hemoglobin A1c in the morning. We will check a T4, TSH, B12, and folate in the morning as well. We will check another set of CK and troponin in the morning and get another electrocardiogram. 9. She does have chronic kidney disease. Creatinine is 1.6, which looks like it is pretty close to her baseline. We will consult Social Service and we will look for rehab opportunities. cc: Josr Mondragon MD
[2019-04-02] MEDS ORDERED: FLU VACCINE IM ONE (20:03)
[2019-04-02] MEDS: ULTRAM PO PRN (20:04)
[2019-04-02] MEDS: LIPITOR PO SCH (20:04)
[2019-04-02] MEDS: COREG PO SCH (20:04)
[2019-04-02] MEDS: ATIVAN PO SCH (20:05)
[2019-04-02] MEDS: HUMALOG SUBQ SCH (21:00)
[2019-04-03] MEDS: HUMALOG SUBQ SCH ×4 (01:06→21:54)
[2019-04-03 01:59] LABS: URINE SOURCE CATH
[2019-04-03 02:15] LABS: BILIRUBIN URINE NEGATIVE (NEGATIVE); BLOOD URINE NEGATIVE (NEGATIVE); COLOR YELLOW; GLUCOSE URINE NEGATIVE (NEGATIVE); KETONE URINE NEGATIVE (NEGATIVE); LEUKOCYTES URINE NEGATIVE (NEGATIVE); NITRITE URINE NEGATIVE (NEGATIVE); PH URINE 5.5; PROTEIN URINE 30 mg/dL (NEGATIVE); SP GRAVITY URINE 1.029; TURBIDITY URINE HAZY (CLEAR); UROBILINOGEN URINE 2 mg/dL (NORMAL)
[2019-04-03] MEDS ORDERED: CALMOSEPTINE OINTMENT TOP PRN (02:40)
[2019-04-03 03:06] LABS: UR EPITHELIAL CELLS <10 /HPF (<10); URINE BACTERIA NEGATIVE /HPF; URINE CASTS NONE SEEN; URINE RBC <10 /HPF (<10); URINE WBC <10 /HPF (<10); URINE YEAST NONE SEEN
[2019-04-03 03:07] LABS: URINE CRYSTALS NONE SEEN; URINE SMALL ROUND CELLS NONE SEEN
[2019-04-03] MEDS: ULTRAM PO PRN ×4 (03:28→21:52)
[2019-04-03 06:32] LABS: BASO# 0.05 X1000 (0.0-0.2); BASO% 0.7 % (0.0-0.8); EOS% 7.9 % (0.0-10.0); HEMATOCRIT 39.8 % (37.0-47.0); HEMOGLOBIN 11.9 g/dL (12.0-16.0); IMM GRAN# 0.04 X1000 (0.0-0.04); IMM GRAN% 0.5 % (0.0-0.5); LYMPH# 1.22 X1000 (1.2-3.4); MCH 28.9 PG (27-31); MCHC 29.9 g/dL (33-37); MCV 96.6 FL (81-99); MONO# 0.76 X1000 (0.11-0.59); MPV 10.9 FL (7.4-10.4); NEUT# 4.95 X1000 (1.4-6.5); NEUT% 64.9 % (42.2-75.2); PLT 283 X1000 (130-400); RBC 4.12 XMIL (4.2-5.4); RDW 14.6 % (11.5-14.5); WBC 7.62 X1000 (4.8-10.8)
[2019-04-03] MEDS: PRILOSEC PO SCH (06:34)
[2019-04-03 06:59] LABS: ALB/GLOB RATIO 1.2; ALBUMIN 3.2 g/dL (3.5-5.0); CALCIUM 9.2 mg/dL (8.8-10.2); CREATININE 1.3 mg/dL (0.5-0.9); POTASSIUM 4.7 mmol/L (3.5-5.1); TOTAL BILIRUBIN 0.41 mg/dL (0.20-1.00); TOTAL PROTEIN 5.9 g/dL (6.3-8.3)
--- NOTE | 2019-04-03 09:03 | ORTHOPAEDICS PROGRESS NOTE ---
DATE: 04/03/2019 SUBJECTIVE: No acute events overnight. The pain is controlled. The patient is tolerating a diet. She is urinating voluntarily. She has not ambulated with Physical Therapy yet. Hematocrit 40. OBJECTIVE: Examination of bilateral lower extremities shows skin intact. Thigh and calf soft and compressible. She is tender to palpation over her anterior hemipelvis on the right and over the sacrum posteriorly on the left. Minimal pain with log roll of the hips. Motor is intact EHL, tibialis anterior, gastrocsoleus complex. Sensation intact to light touch, L3-S1. Dorsalis pedis pulse palpable. ASSESSMENT: An 83-year-old female with right superior and inferior pubic rami fractures and a left zone 1 sacrum fracture. PLAN: 1. The patient can ambulate with Physical Therapy. She can be weightbearing as tolerated. She is having significant pain so I think she is going to have a hard time mobilizing and would likely benefit from rehab or prison at discharge. 2. We will plan on getting post mobilization pelvic x-rays to include AP pelvis, inlet and outlet views. 3. Mechanical DVT prophylaxis. The patient is on aspirin 325 mg daily for DVT prophylaxis as well. Primary team wants to hold off on doing any type of aggressive anticoagulation due to her significant risk for falls and the fact that she has had a recent GI bleed. I did discuss with the patient that pelvic fractures are associated with high risk of blood clots and that she needs to be cognizant of this and try to be as mobile as possible. 4. Appreciate hospitalist recommendations. 5. Disposition per primary team. The patient will likely need placement at discharge.
[2019-04-03] MEDS: CARDIZEM CD PO SCH (09:18)
[2019-04-03] MEDS: IMDUR PO SCH (09:19)
[2019-04-03] MEDS: ATIVAN PO SCH ×2 (09:19→21:53)
[2019-04-03] MEDS: COREG PO SCH ×2 (09:19→21:53)
--- NOTE | 2019-04-03 12:49 | PROGRESS NOTE ---
DATE: 04/03/2019 SUBJECTIVE: This morning Ms. Butler refers to be doing a lot better. She said she was able to do physical therapy. The pain on the left side has substantially reduced. OBJECTIVE: Vital signs: Blood pressure is 145/73, pulse of 74, respiration is 17, temperature 97.8 degrees. General: Ms. Butler is an 83-year-old female. She is in bed, no distress. HEENT: Mucosa is pink and moist. Anicteric. Acyanotic. Neck: Supple. Chest: Good air entry bilateral. There were no crepitations, no rhonchi. Cardiovascular: Regular rate and rhythm. Gastrointestinal: Abdomen was soft. Extremities: No pedal edema. Central nervous system: Patient is awake, alert. LABORATORY DATA: CBC is reviewed. There is just minimum normocytic anemia. Chemistry is reviewed. Creatinine is 1.3, that is significantly improved. I think that is her baseline at this point. IMAGING: Studies have all been reviewed. A pelvic CT scan did show right superior and inferior pubic rami and left sacral fractures. ASSESSMENT: 1. Status post fall resulting in right superior and inferior pubic rami and left sacral fractures. The patient has been evaluated by Orthopedics. Recommendation is conservative management, physical therapy and pain control. 2. Diabetes mellitus. We will continue with insulin regimen. 3. History of hypertension. 4. History of coronary artery disease status post stents. The patient is on immature Coreg, atorvastatin. PLAN: In general, physical therapy evaluation suggested that Ms. Butler was able to do 15 feet with minimum assist with front wheel walker. We will continue with therapy recommendations. Ms. Butler' disposition will depend on her progress during the hospital course. Hopefully, she might be able to be discharged over the course of the weekend to home with home health. cc: Ok Torres MD
[2019-04-03] MEDS: LIPITOR PO SCH (21:52)
[2019-04-04] MEDS: PRILOSEC PO SCH ×2 (05:47→06:16)
[2019-04-04] MEDS: ULTRAM PO PRN ×3 (05:48→17:43)
--- NOTE | 2019-04-04 09:26 | ORTHOPAEDICS PROGRESS NOTE ---
DATE: 04/04/2019 SUBJECTIVE: No acute events overnight. Patient ambulated 15 feet with physical therapy yesterday using the rolling walker. She states her pain is much improved on the left side. However, she is still having some issues bearing weight on the right side. She has been tolerating a diet and urinating voluntarily. Home health agency came and talked to her yesterday about setting up home health upon discharge. Hematocrit 40 from yesterday. OBJECTIVE: Extremities: Examination of the pelvis and bilateral lower extremities shows skin is intact. Patient has tenderness to palpation over anterior hemipelvis on the right and sacrum on the left. Thigh and calf soft and compressible. Musculoskeletal: Motor is intact EHL, tibialis anterior, gastrocsoleus complex bilaterally. Sensation intact to light touch L3-S1 bilaterally. Dorsalis pedis pulse is palpable and equal bilaterally. ASSESSMENT: An 83-year-old female with right superior and inferior pubic rami fracture and left zone 1 sacral fracture. PLAN: 1. Patient can continue to be weightbearing as tolerated bilateral lower extremities. Physical therapy to continue to work on mobilization using assistive device. 2. We will order post mobilization x-rays to ensure no shifting of her pelvic ring injury. 3. Mechanical deep vein thrombosis prophylaxis per Primary Service recommendations. She is a high fall risk and has a history of gastrointestinal bleed. DISPOSITION: Per primary team. Patient is wanting to go home with home health. Will wait on physical therapy recommendations. See how she does with them today. I will plan on seeing her in clinic in 2 weeks with repeat x-rays of the pelvis.
[2019-04-04] MEDS: HUMALOG SUBQ SCH ×3 (10:54→17:43)
--- NOTE | 2019-04-04 10:54 | Diag Imaging Result Doc PS360 ---
EXAM: PELVIS - 04/04/2019 HISTORY: Post mobilization xrays. AP, inlet, outlet views TECHNIQUE: Pelvis three views COMPARISON: 04/02/2019 FINDINGS: Bones are possibly osteopenic. There are bilateral total hip prostheses. The right obturator foramen appears more narrow on the AP view compared to prior. There are no other interval changes identified. IMPRESSION: Apparent increased narrowing of right obturator foramen in the AP projection compared to prior. Electronically signed by Lyndon Pascal 04/04/2019 10:52 AM
[2019-04-04] MEDS: IMDUR PO SCH (10:55)
[2019-04-04] MEDS: CARDIZEM CD PO SCH (10:55)
[2019-04-04] MEDS: COREG PO SCH ×2 (10:55→21:13)
[2019-04-04] MEDS: ATIVAN PO SCH ×2 (10:56→21:13)
--- NOTE | 2019-04-04 14:15 | PROGRESS NOTE ---
DATE: 04/04/2019 SUBJECTIVE: This morning Ms. Butler refers to be doing well, denies any new complaints. She has been able to do therapy yesterday and this morning. OBJECTIVE: Vital signs: Blood pressure is 166/65, pulse of 77, respirations 17, temperature 97.7 degrees. General: Ms. Butler is an 83-year-old female. She is in bed, in no distress. HEENT: Mucosa is pink and moist. Anicteric. Acyanotic. Neck: Supple. Chest: Good air entry bilaterally. There were no crepitations, no rhonchi. Cardiovascular: Regular rate and rhythm. No murmurs, no rubs, no gallops. GI: Abdomen was soft, nontender. Bowel sounds present. Extremities: No pedal edema. Distal pulses are present. ACCOUNTS PAYABLE ASSISTANT: Patient is awake, alert, oriented. Musculoskeletal: Mild tenderness mobilizing both lower extremities at the hip level. LABORATORY DATA: None for this morning. Patient glucose is 240. IMAGING STUDIES: Repeat imaging studies this morning shows an apparent increase narrowing of right obturator foramen in the AP projection compared to prior. ASSESSMENT AND PLAN: 1. Status post fall resulting in right superior and inferior pubic rami and left sacral fractures. Orthopedics is on board. Physical therapy continues to work with the patient. A recent chest x-ray seems to suggest more narrowing of the inlet. We will wait for Orthopedics to re-evaluate her. 2. Diabetes mellitus, controlled. 3. Hypertension, controlled. 4. History of coronary artery disease, status post stents, currently asymptomatic. Patient is on Coreg and Lipitor. Please refer to the details of the progress note that has been written up by the medical student. cc: Ok Torres MD
[2019-04-04] MEDS: LIPITOR PO SCH (21:13)
[2019-04-05] MEDS: HUMALOG SUBQ SCH ×5 (02:09→23:33)
[2019-04-05] MEDS: PRILOSEC PO SCH (06:49)
[2019-04-05] MEDS: ULTRAM PO PRN ×3 (06:49→18:57)
[2019-04-05 07:03] LABS: HEMATOCRIT 40.3 % (37.0-47.0); HEMOGLOBIN 12.1 g/dL (12.0-16.0); MCH 28.9 PG (27-31); MCV 96.2 FL (81-99); MPV 11.1 FL (7.4-10.4); RBC 4.19 XMIL (4.2-5.4); RDW 14.7 % (11.5-14.5); WBC 8.2 X1000 (4.8-10.8)
[2019-04-05 07:32] LABS: ALBUMIN 3.3 g/dL (3.5-5.0); CALCIUM 9.1 mg/dL (8.8-10.2); CREATININE 1.4 mg/dL (0.5-0.9); PHOSPHORUS 3.9 mg/dL (2.7-4.5); POTASSIUM 4.5 mmol/L (3.5-5.1)
[2019-04-05] MEDS: COREG PO SCH ×2 (09:56→23:33)
[2019-04-05] MEDS: IMDUR PO SCH (09:56)
[2019-04-05] MEDS: ATIVAN PO SCH ×2 (09:56→23:32)
[2019-04-05] MEDS: CARDIZEM CD PO SCH (09:56)
--- NOTE | 2019-04-05 12:53 | PROGRESS NOTE ---
DATE: 04/05/2019 SUBJECTIVE: Today, Ms. Butler refers to be doing well. She did not have any new complaints. OBJECTIVE: Vital Signs: Blood pressure is 150/65, pulse of 69, respirations 17, temperature is 98 degrees, the patient is saturating 95% on room air. General: Ms. Butler is an 83-year-old, elderly, female. She was in bed. No distress. HEENT: Mucosa is pink and moist. Anicteric. Acyanotic. Neck: Supple. Chest: Clear to auscultation. There were no crepitations, no rhonchi. Cardiovascular: Regular rate and rhythm. GI: Abdomen was soft, nontender. Bowel sounds present. : Delgado catheter was still in place. ONLINE MARKETING DIRECTOR: The patient was awake, alert, and oriented. LABORATORY DATA: CBC is reviewed and completely normal. Chemistry shows creatinine 1.4, which seems to be chronic. ASSESSMENT: 1. Status post mechanical fall resulting in a right superior and inferior pubic rami and left sacral fractures. Orthopedics is on board. Recommendation is to continue with physical therapy. 2. Diabetes mellitus. Controlled. 3. Hypertension. 4. History of coronary artery disease, status post stents. Currently asymptomatic. The patient is on medical management. 5. Chronic kidney disease stage 3B. Noted. 6. Disposition. Most likely home with home health tomorrow pending final Physical Therapy recommendations. We are also going to discontinue the Delgado catheter today. cc: Ok Torres MD
--- NOTE | 2019-04-05 13:58 | ORTHOPAEDICS PROGRESS NOTE ---
DATE: 04/05/2019 SUBJECTIVE: No acute events overnight. Patient ambulating with therapy. She has been tolerating a diet, and urinating on her own. OBJECTIVE: Hematocrit is 40. Extremities: Examination of the bilateral lower extremity shows skin intact. She is tender to palpation over her right side anterior hemipelvis, and sacrum on the left side. Minimal pain with log roll of her hips. Thigh and calf are soft and compressible. Negative Homans sign. Neurovascularly intact. IMAGING: AP pelvis inlet and outlet views of the pelvis were obtained post mobilization, demonstrating no obvious change or destabilization of the pelvic ring. Stable x-rays. ASSESSMENT: An 83-year-old female with right superior and inferior pubic rami fractures and left zone 1 sacral fracture. PLAN: 1. The patient can continue to be weightbearing as tolerated, bilateral lower extremities. She can ambulate with Physical Therapy. She needs to stay on a walker at all times. 2. SCDs for DVT prophylaxis. Primary team states she is at high risk for fall, and therefore does not want her on chemical anticoagulation. 3. Appreciate hospitalist recommendations. 4. Disposition. Per primary team. The plan is for the patient to be discharged home with home health physical therapy. I will see her in clinic in 2 weeks with repeat x-rays.
[2019-04-05] MEDS: LIPITOR PO SCH (23:32)
[2019-04-06] MEDS: ULTRAM PO PRN (06:40)
[2019-04-06] MEDS: PRILOSEC PO SCH (06:40)
[2019-04-06] MEDS: HUMALOG SUBQ SCH ×2 (06:41→12:31)
--- NOTE | 2019-04-06 08:24 | ORTHOPAEDICS PROGRESS NOTE ---
DATE: 04/06/2019 SUBJECTIVE: No acute events overnight. Patient reports pain is improving. Therapy did not work with her yesterday. She states she is ready to go home as soon as things are set up. OBJECTIVE: Afebrile. Vital signs are stable. Examination of bilateral lower extremities shows skin intact. She has tenderness to palpation over her anterior right hemipelvis and left sacrum. No pain with log roll of the hips. Thigh and calf soft and compressible. Neurovascularly intact. ASSESSMENT: An 83-year-old female with right superior and inferior pubic ramus fractures and left zone 1 sacral fracture. PLAN.: 1. The patient can continue to be weightbearing as tolerated with a rolling walker. Home health physical therapy will be set up upon discharge to work on gait training. 2. Mechanical DVT prophylaxis. Recommend the patient going home with DENIZ hose or some type of mechanical DVT prophylaxis as primary team thinks chemical DVT prophylaxis is too risky, given her history of a questionable GI bleed as well as high fall risk. 3. Appreciate hospitalist recommendations. 4. Disposition is per primary team. The plan is to go home with home health physical therapy. I will plan on seeing her in clinic in 2 weeks with repeat x-rays.
[2019-04-06] MEDS: IMDUR PO SCH (08:56)
[2019-04-06] MEDS: ATIVAN PO SCH (08:56)
[2019-04-06] MEDS: CARDIZEM CD PO SCH (08:56)
[2019-04-06] MEDS: COREG PO SCH (08:56)
[2019-04-06 12:32] VITALS: BP 129/67
[2019-04-06] MEDS ORDERED: MYCOSTATIN SUSP PO SCH (13:00)
[2019-04-06] MEDS ORDERED: ERYTHROMYCIN OPH OINTMENT OPH SCH (13:00)
--- NOTE | 2019-04-07 16:51 | DISCHARGE SUMMARY ---
ADMISSION DATE: 04/02/2019 DISCHARGE DATE: 04/06/2019 DISPOSITION: Is home with home health. Patient followup will be 1. Dr. Tony. 2. Dr. Waite. [facility]. CONSULTATIONS: Orthopedics was consulted, patient was seen by Dr. Waite. INVASIVE PROCEDURES: None. IMAGING STUDIES OF SIGNIFICANCE: A CT scan of the head and cervical spine showed no hemorrhage and no cervical spine acute fracture. A pelvis x-ray showed right superior pubic ramus fracture age undetermined. A pelvic CT scan showed a right superior and inferior pubic rami and the left sacral fractures. ADMISSION DIAGNOSIS: 1. Right superior inferior pubic rami, left sacral fractures. 2. Increase risk of fall. 3. History of coronary artery disease. 4. Congestive heart failure. DIAGNOSIS AT THE TIME OF DISCHARGE: 1. Status post mechanical fall resulting in right superior and inferior pubic rami and left sacral fractures. Patient was evaluated and followed up by orthopedics recommendation was to continue physical therapy. 2. History of coronary artery disease status post stents currently asymptomatic. 3. Chronic kidney disease stage 3B. 4. Diabetes mellitus controlled. 5. Hypertension. 6. Dyslipidemia. DISCHARGE MEDICATIONS: 1. Imdur 30 mg p.o. daily. 2. Atorvastatin 40 mg p.o. at bedtime. 3. Aspirin 81 mg p.o. daily. 4. Glipizide 5 mg p.o. daily. 5. Nitroglycerin p.r.n. 6. Iron 1 tab daily. 7. Lorazepam 0.5 p.o. as directed. 8. Carvedilol 12.5 q.12. 9. Ergocalciferol . 10. Diltiazem 180 p.o. daily. 11. Omeprazole 20 mg p.o. daily. 12. Tramadol 50 mg p.o. q.6 hours. PRESENTING COMPLAINT: Fall and hip pain. HISTORY OF PRESENTING COMPLAINT: Ms. Butler 83-year-old female who presented to the emergency department after she sustained several falls, on admission she was not able to bear weight on standing. She was evaluated with imaging studies, x-rays and pelvic CT scan did reveal pelvic fractures, patient was admitted and Orthopedic were consulted. HOSPITAL COURSE: Ms. Butler was adequately hydrated and was pain control. Orthopedics evaluated her and recommendation was to continue with physical therapy and no surgical intervention. Ms. Butler was evaluated multiple times by physical therapy including today. She was able to do 90 feet with weightbearing as tolerated minimum assistance. She has had a repeat pelvic x-ray and has been evaluated today by Orthopedics, they continued to recommend home physical therapy with weightbearing as tolerated. We think Ms. Butler is clinically stable that she can be discharged. Her current vitals blood pressure 129/67, pulse of 75, respiration is 18, temperature 97.8 degrees. Physical exam is unremarkable, she is now bearing weight with a front wheel walker to ambulate. She is going to follow up with Dr. Waite and her primary care doctor. All the discharge instructions discussed with her. She voiced understanding. TIME SPENT: 36 minutes. cc: Ok Torres MD
== END 2019-04-06 13:34 | disposition home health service (06) | DRG 552 ==
LOC: SUPCPDRO → ED 10:26 → SUATTDRO 17:28 → 4N 17:28
PROVIDERS: ATTEND Internal Medicine

== ENCOUNTER 2019-08-08 13:54 | Inpatient (IN) ==
[2019-08-08] MEDS ORDERED: NARCAN IV ONE (14:02)
[2019-08-08] MEDS ORDERED: ROMAZICON IV ONE (14:02)
[2019-08-08] MEDS ORDERED: NS 2,000 ML ONE (14:11)
[2019-08-08] MEDS ORDERED: NS 1,000 ML IV ONE ×2 (14:15→14:21)
[2019-08-08 14:36] LABS: ALLEN TEST NO; BE -3.7 mmoll (-3.0-3.0); BLOOD TYPE ARTERIAL; METHB 1.3 % (0.0-1.5); O2(CT) 19.5 mL/dL (15.0-23.0); O2HB 95.2 % (95.0-99.0); PCO2(98.6) 28 mmHg (35-45); PO2(98.6) 89 mmHg (60-100); SAMPLE BLOOD; SAO2 98.2 % (95.0-100.0); THB 14.5 g/dL (11.5-17.4); pH(98.6) 7.44 (7.35-7.45)
[2019-08-08 14:37] LABS: MODALITY ROOM AIR
--- NOTE | 2019-08-08 14:47 | Diag Imaging Result Doc PS360 ---
CHEST-1 VIEW - 08/08/2019 INDICATION: SOB COMPARISON: 10/23/2018 FINDINGS: Lung volumes are lower. There is increasing hazy opacity in the right lung base most likely atelectasis. Otherwise no infiltrates. Stable borderline cardiomegaly. IMPRESSION: Much lower lung volumes. Nonspecific hazy atelectasis or infiltrate in the right lung base. Electronically signed by Mark Barnett 08/08/2019 2:45 PM
[2019-08-08 14:53] LABS: BASO# 0.04 X1000 (0.0-0.2); BASO% 0.1 % (0.0-0.8); EOS# 0.13 X1000 (0.0-0.7); EOS% 0.4 % (0.0-10.0); LYMPH# 0.49 X1000 (1.2-3.4); LYMPH% 1.6 % (20.5-51.1); MCH 31.5 PG (27-31); MCHC 31.8 g/dL (33-37); MCV 98.9 FL (81-99); MONO# 0.58 X1000 (0.11-0.59); MONO% 1.9 % (1.7-9.3); MPV 10.9 FL (7.4-10.4); NEUT# 29.08 X1000 (1.4-6.5); PLT 374 X1000 (130-400); RBC 4.45 XMIL (4.2-5.4); RDW 14.6 % (11.5-14.5); WBC 30.62 X1000 (4.8-10.8)
[2019-08-08 15:13] LABS: BANDS 1 % (0-1); LYMPHS 1 % (21-51); MONO 1 % (1-9); NRBC 1 % (0-0); SEGS 97 % (42-75)
[2019-08-08 15:16] LABS: URINE SOURCE CATH
[2019-08-08 15:16] LABS: LARGE PLATELETS OCCASIONAL
[2019-08-08] MEDS ORDERED: LEVAQUIN 750 MG/D5W 750 MG/150 ML IVPB IV ONE (15:16)
[2019-08-08 15:25] LABS: BILIRUBIN URINE NEGATIVE (NEGATIVE); BLOOD URINE NEGATIVE (NEGATIVE); COLOR YELLOW; GLUCOSE URINE NEGATIVE (NEGATIVE); KETONE URINE NEGATIVE (NEGATIVE); LEUKOCYTES URINE NEGATIVE (NEGATIVE); NITRITE URINE NEGATIVE (NEGATIVE); PH URINE 5.5; PROTEIN URINE 30 mg/dL (NEGATIVE); SP GRAVITY URINE 1.018; TURBIDITY URINE HAZY (CLEAR); UROBILINOGEN URINE 4 mg/dL (NORMAL)
[2019-08-08 15:28] LABS: UR EPITHELIAL CELLS <10 /HPF (<10); URINE BACTERIA 4+ /HPF; URINE RBC <10 /HPF (<10); URINE WBC <10 /HPF (<10)
[2019-08-08 15:34] LABS: UR AMPHETAMINES QUAL NONE DETECTED (NONE DETECT); UR BARBITUATES QUAL NONE DETECTED (NONE DETECT); UR BENZODIAZEPIN QUAL PRESUMPTIVE POSITIVE (NONE DETECT); UR CANNABINOIDS QUAL NONE DETECTED (NONE DETECT); UR COCAINE QUAL NONE DETECTED (NONE DETECT); UR METHADONE QUAL NONE DETECTED (NONE DETECT); UR OPIATES QUAL PRESUMPTIVE POSITIVE (NONE DETECT); UR OXYCODONE QUAL NONE DETECTED (NONE DETECT); UR PCP QUAL NONE DETECTED (NONE DETECT)
[2019-08-08 18:25] LABS: ALB/GLOB RATIO 0.8; ALBUMIN 2.4 g/dL (3.5-5.0); CALCIUM 8.3 mg/dL (8.8-10.2); CREATININE 1.7 mg/dL (0.5-0.9); TOTAL BILIRUBIN 2.36 mg/dL (0.20-1.00); TOTAL PROTEIN 5.6 g/dL (6.3-8.3)
[2019-08-08] MEDS ORDERED: POTASSIUM CHLORIDE 40 MEQ/SWI 40 MEQ/100 ML IVPB IV ONE (18:31)
[2019-08-08] MEDS: POTASSIUM CHLORIDE 20 MEQ/SWI 20 MEQ/100 ML IVPB IV SCH ×2 (19:00→21:00)
--- NOTE | 2019-08-08 19:10 | Diag Imaging Result Doc PS360 ---
CT THORAX/ABD/PELVIS W/O CON - 08/08/2019 INDICATION: sepsis COMPARISON: CT chest 09/20/2016 FINDINGS: CHEST: There is no adenopathy. Heart size is top normal. There are extensive bilateral heterogeneous infiltrates. This is worst in the right lower lobe. The airways are grossly clear. There is right hemidiaphragm elevation. There are worsening mild compression deformities in the thoracic spine. The new fractures are at T6 and T9. Abdomen pelvis: There are numerous gallstones in the gallbladder. The gallbladder is somewhat distended. No surrounding inflammation or free fluid. There are some air in the urinary bladder, presumably from catheterization. There is severe diverticulosis of the sigmoid colon. No radiodense renal stones. No hydronephrosis or hydroureter. There is a left adrenal nodule measuring about 1.5 cm. Otherwise abdominal organs are normal. There are moderate degenerative changes of the spine. No acute or suspicious bony lesion. IMPRESSION: 1. Extensive multifocal infiltrates. Concerning for pneumonia or viral infection. 2. Right hemidiaphragm elevation. 3. Mild compression fractures of the thoracic spine. 4. Numerous stones in the gallbladder. Gallbladder is distended. Consider a gallbladder ultrasound to evaluate for possible cholecystitis. 5. Severe diverticulosis coli. This exam was performed using automated exposure control, adjustment of mA or kV according to patient size, and/or use of iterative reconstruction technique Electronically signed by Mark Barnett 08/08/2019 7:08 PM
--- NOTE | 2019-08-08 19:33 | PROVIDER DOCUMENTATION ---
This chart was entered by Sharlene Rg Scribe, acting as scribe for Kvng Ochoa CRNP. HPI-General Adult - General Chief Complaint: Altered Mental Status Stated Complaint: SOB, COUGH Time Seen by Provider: 08/08/19 14:01 Source: patient, family (daughter ravi nice), EMS Unable to obtain history due to:: altered Allergies/Adverse Reactions: Patient Allergies Allergy/AdvReac Type Severity Reaction Status Date / Time latex Allergy RASH Verified 08/08/19 15:45 povidone-iodine Allergy RASH Verified 08/08/19 15:45 [From Betadine] soap * [From Betadine] Allergy RASH Verified 08/08/19 15:45 Sulfa (Sulfonamide Allergy RASH Verified 08/08/19 15:45 Antibiotics) Home Medications: Home Medication List Medication Instructions Recorded Confirmed Last Taken Type ATORVAstatin [Lipitor] 40 mg PO QHS 10/15/14 08/08/19 1 Day Ago History ~08/07/19 Isosorbide Mononitrate E.r. [Imdur] 30 mg PO DAILY 10/15/14 08/08/19 08/08/19 History Aspirin 81 mg PO DAILY #30 chewtab 10/25/14 08/08/19 08/08/19 Rx Glipizide 5 mg PO DAILY 09/15/16 08/08/19 08/08/19 History Lorazepam [Ativan] 0.5 mg PO DIRECTED 09/15/16 08/08/19 08/08/19 History Carvedilol [Coreg] 12.5 mg PO Q12H #60 tablet 09/25/16 08/08/19 08/08/19 Rx Diltiazem HCl [Cardizem Cd] 180 mg PO DAILY 09/10/18 08/08/19 08/08/19 History Ergocalciferol (Vitamin D2) 50,000 unit PO DIRECTED 09/10/18 08/08/19 Unknown History [Vitamin D2] Furosemide [Lasix] 40 mg PO DIRECTED 08/08/19 08/08/19 Unknown History - History of Present Illness -Gen Adult Nature of Presenting Problems: 83 yof presents to the ed via ems with c/o lethargic cough and intermittent fever. family reported to ems that pt has had cough and fever for 1 week and this am they could not wake her to get her out of bed. daughter spoke with provider and reports that pt has hx of taking her medications wrong and will not allow family to help control these. pt has refused to see her pmd with cough and fever and today pt was given .2 romazicon and .4 narcan and quickly returned to baseline and vital stabilized Location of Pain/Injury: reports: none Pain Radiation: reports: no radiation Quality of Pain: reports: none Severity: reports: moderate (lethargic) Onset/Duration: reports: this morning Timing: reports: still present, constant Context/Activities at Onset: reports: other (possible took to much medication) Modifying Factors: improves with: other (narcan) Associated Symptoms: reports: cough, fever/chills. denies: back/neck pain, chest pain, nausea, shortness of breath, vomiting Similar Symptoms Previously?: Yes (hx of OD) Recently seen or treated by another doctor?: No Review of Systems - Adult - REVIEW OF SYSTEMS - ADULT Constitutional: reports: see HPI, chills, fever Eyes: reports: no symptoms reported Ears, Nose, Mouth & Throat: reports: no symptoms reported Cardiovascular: denies: chest pain, palpitations Respiratory: reports: see HPI, cough. denies: shortness of breath, wheezing Gastrointestinal: denies: diarrhea, nausea, vomiting Genitourinary: reports: no symptoms reported Musculoskeletal: reports: no symptoms reported Integumentary: reports: no symptoms reported Neurological: reports: see HPI, other (ams). denies: dizziness/vertigo, headache/migraines Psychiatric: reports: no symptoms reported Endocrine: reports: no symptoms reported Hematologic/Lymphatic: reports: no symptoms reported Allergic/Immunologic: reports: no symptoms reported All Other Systems: Reviewed and Negative Past History - Adult - PAST MEDICAL HISTORY-ADULT Review of Records: reports: Old Records Reviewed, Nursing Assessment Review, Medications Reviewed, Social history reviewed & non-contributory. Major Childhood Illnesses: reports: denies history Cardiovascular: reports: cardiac disease, A-Fib, blood clots, HTN, [place] (09/21/14) Respiratory: reports: denies history Gastrointestinal: reports: denies history Obstetrical/Gynecological: reports: denies history Genitourinary: reports: denies history Musculoskeletal: reports: denies history Neurological: reports: denies history Psychiatric: reports: anxiety Endocrine/Immune: reports: Diabetes Other Conditions: reports: denies history - PRIOR SURGERIES/PROCEDURES Surgical/Procedure History: reports: cardiac stent (09/2014), hysterectomy, back/neck (back) - PRIOR HOSPITALIZATIONS Prior Hospitalizations: reports: for other non-related - IMMUNIZATION STATUS Childhood Immunizations: See Nurse Assessment Flu Vaccine: See Nurse Assessment - FAMILY HISTORY Family History: reviewed, not pertinent - SOCIAL HISTORY Smoking: non-smoker Substance Use: denies Living Situation: family Physical Exam-General - PHYSICAL EXAM-ADULT Exam Limited by: lethargic and nonverbal on exam Initial Vital Signs Reviewed: Yes (BP-85/47 RR-48 O2-91% ra) - CONSTITUTIONAL General Appearance: lethargic - EYES Eyes: negative: PERRL/EOMI (pinpoint) - HEAD, EARS, NOSE, MOUTH & THROAT HENMT: moist mucous membranes - NECK Neck: non-tender, full range of motion, supple, normal inspection - RESPIRATORY Respiratory: chest non-tender, crackles, rhonchi, increased rate (48) - CARDIOVASCULAR Cardiovascular: normal peripheral pulses, regular rate, rhythm - GASTROINTESTINAL (ABDOMEN) Abdominal Exam: soft - GENITOURINARY Female Genitalia/Pelvic Exam: deferred Rectal Exam: deferred Hemoccult Exam: deferred - LYMPHATIC Lymphatic: no adenopathy - MUSCULOSKELETAL Extremity: normal capillary refill - SKIN Integumentary: normal color, normal turgor, warm/dry Progress - PLAN OF CARE/RESULTS Progress/Plan/Lab Results: Vital Signs - 8 hr 08/08/19 14:08 08/08/19 14:21 Temperature 98.3 F Pulse Rate 94 H 91 H Respiratory Rate 48 H 28 H Blood Pressure 85/47 115/70 O2 Sat by Pulse Oximetry 91 L 93 L Laboratory Results - last 24 hr 08/08/19 08/08/19 14:00 14:30 Specimen Type ARTERIAL Sample Site R BRACHIAL pH 7.44 pCO2 28 L pO2 89 HCO3 22.0 Base Excess -3.7 L Oxyhemoglobin 95.2 ABG O2 Sat (Calculated) 19.5 ABG O2 Saturation 98.2 ABG Carboxyhemoglobin 1.80 ABG Methemoglobin 1.3 Josr Test NO A-a O2 Difference 26.0 Total Hemoglobin 14.5 Lactate 3.70 H Liter Flow 0.0 Blood Gas Modality ROOM AIR FiO2 % 21.0 POC Glucose 99 D Orders Category Date Time Status NEWS Score >or=5:Order NEWS Bundle S.O. NOW Care 08/08/19 14:12 Active CHEST-1 VIEW [RAD] Stat Exams 08/08/19 13:51 Taken ABG [RESP] Routine Lab 08/08/19 14:30 Completed BLOOD CULTURE [BLDCUL] Stat Lab 08/08/19 14:00 Results CBC WITH DIFF [HEME] Stat Lab 08/08/19 14:00 Results COMPREHENSIVE METABOLIC PANEL [CHEM] Stat Lab 08/08/19 14:00 Received LACTATE, PLASMA [CHEM] Q3H Lab 08/08/19 14:00 Received LACTATE, PLASMA [CHEM] Q3H Lab 08/08/19 17:15 Uncollected LACTATE, PLASMA [CHEM] Q3H Lab 08/08/19 20:15 Uncollected UA NIMS W/REFLEX CULT [URINALYSIS] Stat Lab 08/08/19 14:19 Uncollected URINE DRUG SCREEN Stat Lab 08/08/19 14:19 Uncollected 0.9% Sodium Chloride Inj [Ns] 1,000 ml Med 08/08/19 14:15 Active IV 999 mls/hr 0.9% Sodium Chloride Inj [Ns] 1,000 ml Med 08/08/19 14:21 Active IV 999 mls/hr 0.9% Sodium Chloride Inj [Ns] 2,000 ml Med 08/08/19 14:11 Discontinued .ROUTE As directed Flumazenil [Romazicon] Med 08/08/19 14:02 Discontinued 0.2 mg IV NOW ONE Naloxone [Narcan] Med 08/08/19 14:02 Discontinued 0.4 mg IV NOW ONE Result Diagrams: 08/08/19 14:00 08/08/19 17:53 - REASSESSMENT Reassessment #1 Time Reassessed: 14:02 (pt was given .2 romazicon and .4 narcan vitals then stablized pt is a/ox3 ) Status: improving Reassessment #2 Time Reassessed: 17:09 Status: other (I have spoken to lab regarding CMP, as CT has still not been done. Lab states that a call was made and told someone at the desk that CMP needed recollecting, then was transferred to report Lactate. Lactate was reported to the Nurse. Both help desk consultant and nurse was not given information regarding hemolyzed labs. Lab was then asked by myself to come redraw, immediately, as it had been 3 hrs since orders were put in and the patient was a diffult stick.) Reassessment #3 Time Reassessed: 15:00 Status: worsening (patient is again somewhat drowsy. BP has declined once again. labs are pending) - EKG 1 Time of EKG reading by physician:: 14:41 EKG Read and Signed by:: Rolando Salgado EKG Interpretation (*Must complete 3 of following elements*): Abnormal Rate: 90 Rhythm: sinus rhythm with pac w/aberrant conduction [place]: left (deviation) QRS: LVH ID Interval: normal ST Wave: normal Comments: anterior infarct, age undetermined - CT/MRI 1 CT Study: Abdomen, Pelvis Impression: See EMR Report (CHEST: There is no adenopathy. Heart size is top normal. There are extensive bilateral heterogeneous infiltrates. This is worst in the right lower lobe. The airways are grossly clear. There is right hemidiaphragm elevation. There are worsening mild compression deformities in the thoracic spine. The new fractures are at T6 and T9. Abdomen pelvis: There are numerous gallstones in the gallbladder. The gallbladder is somewhat distended. No surrounding inflammation or free fluid. There are some air in the urinary bladder, presumably from catheterization. There is severe diverticulosis of the sigmoid colon. No radiodense renal stones. No hydronephrosis or hydroureter. There is a left adrenal nodule measuring about 1.5 cm. Otherwise abdominal organs are normal. There are moderate degenerative changes of the spine. No acute or suspicious bony lesion. IMPRESSION: 1. Extensive multifocal infiltrates. Concerning for pneumonia or viral infection. 2. Right hemidiaphragm elevation. 3. Mild compression fractures of the thoracic spine. 4. Numerous stones in the gallbladder. Gallbladder is distended. Consider a gallbladder ultrasound to evaluate for possible cholecystitis. 5. Severe diverticulosis coli. This exam was performed using automated exposure control, adjustment of mA or kV according to patient size, and/or use of iterative reconstruction technique Electronically signed by Mark Barnett 08/08/2019 7:08 PM 08/08/191907 Interpreting Physician: Mark Barnett MD Dictated Date/Time: 08/08/191903 cc: Kvng Ochoa; Mauricio Tony MD) - CONSULTS/PCP/HOSPITALIST Notification #1 *Consult/PCP/Hospitalist*: Dr Barrera Time Discussed: 19:26 Reason/Comments: Possible Cholecystitis Consult Disposition: Admit (confirm with US in AM) #2 Consult: Dr Foerman Time Discussed: 19:28 Reason/Comments: Sepsis, ARF, Possible cholecyctitis, AMS Consult Disposition: Admit Departure - Departure Date of Disposition Decision: 08/08/19 Time of Disposition Decision: 19:32 DIAGNOSIS: Sepsis, Cholecystitis, AMS (altered mental status), ANA (acute kidney injury), Pneumonia Disposition: ADMITTED INPATIENT 09 Certified Medical Emergency: Emergent Condition: Critical Additional Instructions: ED Follow Up Instructions: You have been treated by a care provider in the Emergency Department. These instructions are being provided to you so you can have an understanding of how to care for yourself upon discharge. Upon discharge from the Emergency Department, you are responsible for making arrangements for follow-up care by a physician of your choice. Take all prescribed medications as directed. Return to the Emergency Department immediately for any new or worsening symptoms. You may call the Physician Referral phone number at [phone] to obtain a list of Physicians who are taking new patients. Referrals and Follow-Ups: Mauricio Tony MD [Primary Care Provider] - - Critical Care Note This patient required my direct & personal management of CC.: No Attestation - Physician/ OPAL Attestation Patient care was provided by Advanced Practice Provider:: Yes Advanced Practice Provider:: Kvng Ochoa Advanced Practice Provider documentation review:: The Mid-level provider documentation, treatment plan and medical decision making was reviewed by the physician who agrees with all treatment and medical decision making by the MLP. The physician spent face to face time with patient:: Yes Advanced Practice Provider documentation review:: Supervising physician onsite and consulted in the evaluation and care of this patient. The physician did have a face to face encounter with the patient. This chart was documented by the indicated scribe, (Sharlene Rg Scribe) and accurately reflects the services I performed and decisions made by me, Kvng Ochoa CRNP, as attested by the provider's signature.
--- NOTE | 2019-08-08 23:42 | HISTORY AND PHYSICAL ---
CHIEF COMPLAINT: Lethargy and cough. HISTORY OF PRESENTING COMPLAINT: The patient is an 83-year-old with history of chronic diastolic heart failure, hypertension, hyperlipidemia, diabetes, CKD 3, CAD status post stents, who presents with lethargy and a cough of 1 week duration. The patient was brought by EMS and the patient states she cannot remember all that happened. She only endorses that she has been coughing which is productive of yellowish sputum, but cannot remember what happened prior to her being brought to the emergency room. The family brought the patient when they found out this morning that they could not wake her to get her out of bed. The family endorses that the patient takes Ativan at home and suspicious that the patient may have overdosed on Ativan. Nobody is certain for how long the patient has been altered as she was found and the EMS had to be called immediately. The patient presently denies any fever, any nausea, any vomiting, or any chest pain. In the ER the patient was given naloxone and flumazenil and the patient became more responsive and again she became more lethargic and she received additional doses of naloxone and she responded adequately. Patient denoes any contact with a positive COVID 19 patient or any recent travel. Workup showed the patient had elevated WBC, and CT scan was suspicious for multifocal pneumonia and possible cholecystitis and the Hospitalist was called to admit the patient. ALLERGIES: To latex, povidone, iodine, and sulfa drugs. HOME MEDICATION: Includes isosorbide mononitrate 30 mg daily, atorvastatin 40 mg daily, aspirin 82 mg daily, glipizide 5 mg daily, lorazepam 0.5 mg, carvedilol 2.5 mg q. 4 hours, ergocalciferol 50,000 units, diltiazem 180 mg daily, and furosemide 40 mg daily. PAST MEDICAL HISTORY: chronic diastolic heart failure with an EF of 65% and grade 2 diastolic dysfunction, CAD status post stent in 2016, diabetes type 2, hypertension, hyperlipidemia. PAST SURGICAL HISTORY: Is that of coronary artery stent placement in 2016, hysterectomy, back surgery, bilateral hip surgery, cataract surgery. SOCIAL HISTORY: Denies any history of smoking or alcohol use. FAMILY HISTORY: Describes a history of coronary artery disease in father. REVIEW OF SYSTEMS: A 12 point review of systems done is negative except as stated in the HPI. PHYSICAL EXAMINATION: VITAL SIGNS: Blood pressure 115/70, respiratory rate 28, pulse rate is 91, O2 saturation is 93% on room air. GENERAL: The patient is a elderly female in no acute respiratory distress. HEENT: No pallor. Anicteric. Mildly moist oral mucosa. CARDIOVASCULAR: S1, S2. No murmurs, rubs or gallops. RESPIRATORY: Good air entry bilaterally. No wheeze. No crepitations. No added sounds. ABDOMEN: No area of tenderness. Bowel sounds normoactive. No organomegaly noted. EXTREMITIES: No bilateral pedal edema noted. NEUROLOGY: Alert and oriented x3. No focal neurological abnormalities noted. SKIN: No significant skin changes noted. LABORATORY DATA: WBC is 13.62, hemoglobin is 14, hematocrit is 44, platelet count is 374,000. Blood gas, pH is 7.4, pCO2 of 38, PO2 of 89. Chemistry, sodium is 141, potassium 3.0, chloride 106, anion gap 13, BUN 29, creatinine 1.7 which is a little bit off, her baseline is around 1.2. On LFTs, AST is 255, ALT is 82, alkaline phosphatase is 547, troponin T is 46. BNP is 10,852. Total protein is 5.6, albumin is 2.4. UA shows protein 30, negative nitrites and leukocytes. UDS was positive for opiates and benzodiazepines. IMAGING DATA: CT of the chest, abdomen and pelvis that showed extensive multifocal infiltrates concerning for pneumonia by infection, right hemidiaphragm elevation, mild compression fractures of the thoracic spine, numerous stones in the gallbladder, the gallbladder is distended. Consider gallbladder ultrasound to evaluate for possible cholecystitis, and severe diverticulosis. ASSESSMEN: The patient is an 83-year-old with a history of chronic diastolic heart failure, CKD 3, CAD status post stent, diabetes, and hypertension who presents with intermittent fever and cough productive of yellow sputum. The patient also presented lethargic and responded well to naloxone and flumazenil. CT of the chest showed multifocal pneumonia and additional work up revealed elevated WBC concerning for infection. Acute diagnosis multifocal pneumonia, suspected Coronavirus Disease 19 sepsis secondary to multifocal pneumonia, Acute Encephalopathy 2/2 Benzodiazepine and opoid overdose possible cholecystitis with multiple gallstones, ANA Transaminitis troponinemia Chronic diagnosis Diabetes, hypertension, CKD, CAD status post stent Chronic Diastolic Heart failure PLAN: 1. We will treat multifocal pneumonia with IV antibiotics vancomycin and Zosyn broad-spectrum antibiotics. 2. To rule out suspected Coronavirus Disease 19 infection given fever and cough. the patient already had a swab taken. Would do a procalcitonin and a respiratory viral panel to rule out additional causes of her clinical picture 3. Will trend lactic acid to show lactic acid is trending down. 4. We will also hydrate the patient with LR for ANA, I expect improvement in kidney functions with IV hydration. Gentle hydration given history of diastolic heart failure. 5. Given concern for possible cholecystitis Surgery already consulted. We plan to do a gallbladder ultrasound to rule out cholecystitis. 6. Given the patient's likely benzodiazepine and opoiod overdose we will have p.r.n. naloxone ordered, naloxone ordered q.4 hours p.r.n. 0.4 mg for a respiratory rate less than 12. The patient appears fully awake now and communicating although she cannot remember all that happened. Most likely this was due to benzodiazepine and opoid overdose as she responded well to reverasal agents. 7. We will check a direct bilirubin as the patient has hyperbilirubinemia to rule out any obstructive cause, 8. We will continue hold home carvedilol and diltiazem because her blood pressure is running on the low side for now. can introduce home BP meds if BP improves. 9. We will place her on sliding scale insulin for now as blood glucose appears on the low side, and we will adjust her diabetes medication as needed. Diabetic diet 10. will check a viral hepatitis panel to r/o a viral cause of her transaminitis although AST/ALT ratio appears more alcoholic picture 11. Contact and airborne precautions for suspected COVID 19 infection 12. will trend troponin. Likely is demand ischemia 12. we will continue other home medication DVT prophylaxis with heparin. CODE STATUS: Full code. DISPOSITION: We will admit the patient to inpatient. We will discharge when medically stable with improvement in clinical status. [facility]
[2019-08-09] MEDS ORDERED: LASIX PO SCH (00:23)
[2019-08-09] MEDS ORDERED: NARCAN IV PRN (00:23)
[2019-08-09] MEDS ORDERED: HUMULIN R SUBQ ONE (00:23)
[2019-08-09] MEDS ORDERED: VANCOMYCIN IV PER PHARMACY MISC SCH (00:23)
[2019-08-09] MEDS ORDERED: HEPARIN SUBQ SCH (00:23)
[2019-08-09] MEDS ORDERED: POTASSIUM CHLORIDE 20% LIQUID PO ONE (00:23)
[2019-08-09] MEDS ORDERED: LR 1,000 ML IV ONE (00:23)
[2019-08-09] MEDS ORDERED: VANCOMYCIN 1,600 MG in NS 250 ML IV ONE (02:00)
[2019-08-09] MEDS: MUCINEX PO PRN ×2 (03:48→18:10)
[2019-08-09] MEDS: ZOSYN 3.375 GM in NS 50 ML IV SCH ×4 (03:48→22:34)
[2019-08-09] MEDS: TYLENOL PO PRN ×5 (03:49→22:39)
[2019-08-09 04:42] LABS: HEMATOCRIT 41.3 % (37.0-47.0); HEMOGLOBIN 12.9 g/dL (12.0-16.0); MCH 32.2 PG (27-31); MCHC 31.2 g/dL (33-37); MPV 10.8 FL (7.4-10.4); RBC 4.01 XMIL (4.2-5.4); RDW 14.8 % (11.5-14.5); WBC 50.74 X1000 (4.8-10.8)
[2019-08-09 05:00] LABS: CALCIUM 8.5 mg/dL (8.8-10.2); CREATININE 1.6 mg/dL (0.5-0.9)
[2019-08-09] MEDS ORDERED: ZYVOX 600 MG/D5W 600 MG/300 ML IVPB IV SCH (08:30)
[2019-08-09] MEDS ORDERED: IMDUR PO SCH (09:00)
--- NOTE | 2019-08-09 10:07 | Diag Imaging Result Doc PS360 ---
US GB < RUQ (LIMITED) - 08/09/2019 INDICATION: elevated liver enzymes TECHNIQUE: COMPARISON: CT from 08/08/2019 FINDINGS: The patient was eating at the time of the exam. The gallbladder is distended. Several small gallstones in the gallbladder. The liver, pancreas, and right kidney are normal. Common bile duct measures 6.6 mm. Aorta, IVC, and main portal vein are patent. IMPRESSION: 1. The patient was eating at the time of the exam which is contrary to the point of a gallbladder ultrasound. 2. Gallstones. Distended gallbladder. Electronically signed by Mark Barnett 08/09/2019 10:05 AM
[2019-08-09] MEDS ORDERED: LASIX IV ONE (10:14)
[2019-08-09] MEDS: 1/2 NS 1,000 ML IV SCH (10:17)
[2019-08-09] MEDS: HEPARIN SUBQ SCH ×2 (10:17→22:34)
[2019-08-09] MEDS: ASPIRIN PO SCH (10:19)
--- NOTE | 2019-08-09 14:43 | GENERAL SURGERY CONSULTATION ---
DATE: 08/09/2019 Ms. Butler is an 83-year-old female with multiple medical problems including diastolic heart failure, hypertension, hyperlipidemia, diabetes, chronic kidney disease stage 3, coronary artery disease. She presents with malaise and lethargy and cough. She has chronic back pain, takes Tylenol for regularly, also takes Ativan regularly. Her initial evaluation revealed a significant leukocytosis. Her CT scan showed a dilated gallbladder with gallstones, but no other complicating features. Abdominal pain is really not part of her initial complaint. MEDICATIONS AT HOME: Included Imdur 30 mg, atorvastatin 40 mg, aspirin 81 mg daily, glipizide 5 mg daily, Lorazepam 0.5 mg as needed, carvedilol 2.5 mg every 4 hours, ergocalciferol, diltiazem 100 mg daily, Lasix 40 mg daily. ALLERGIES: She has an allergy to latex, povidone, iodine and sulfa. PAST SURGICAL HISTORY: Previous surgery includes a coronary stent placement, hysterectomy, back surgery, bilateral hip surgery and cataract surgery. SOCIAL HISTORY: She denies any history of smoking or alcohol use or illicit drug use. FAMILY HISTORY: Pertinent for coronary disease. REVIEW OF SYSTEMS: Negative in other 10 subsystems except as noted above. PHYSICAL EXAMINATION: Vital Signs: She is afebrile, heart rate 78, blood pressure is 100/56. LABORATORY DATA: Reveals a white count up to 50,000. Her BUN is 33, creatinine 1.6, glucose 117. Her liver tests reveal a total bilirubin 2.36, direct bilirubin 2.20. AST 255, ALT 82, alkaline phosphatase 547. Lactate is 2.9. She does have a urine opiate screen that is positive and benzodiazepine is positive. That will be consistent with her Tylenol #4 intake and her Ativan intake. CT scan does show a dilated gallbladder with no complicating features. It appears she has an infiltrate in her right lower lung. There are some gallstones noted in her gallbladder. She does have compression fractures of her thoracic spine. She has diverticulosis as well. Ultrasound done this morning of the gallbladder shows a normal size common duct at 6.6. The gallbladder is distended. There was no evidence of pericholecystic fluid or gallbladder wall edema. She has a urine culture that is growing gram-negative rods and blood culture growing gram- negative rods. ASSESSMENT: Probably urinary tract sepsis. She does have cholelithiasis. I am not certain that this is the etiology of her problem. She is certainly not tender over gallbladder. I would recommend continued antibiotic therapy to cover her gram-negative sepsis. We will continue to follow along and intervene with her gallbladder if it becomes necessary. cc: Julius Barrera MD
--- NOTE | 2019-08-09 14:46 | PROGRESS NOTE ---
DATE: 08/09/2019 SUBJECTIVE: The patient is resting comfortably in bed. She seems to be awake. She is eating. She feels better compared with yesterday. She is bacteremic with gram-negative rods as well as urinary tract infection due to gram-negative rods. We will continue with broad spectrum antibiotics with Zosyn. Also she has multilobar pneumonia. Pulmonary Department on board. OBJECTIVE: Vital signs: Temperature 98.9 degrees, pulse 78, respiratory rate 16, blood pressure 100/56, oxygen saturation 95 on 2 L of nasal cannula. HEENT: Head normocephalic. No trauma. PERRLA. Neck: Supple. No JVD. No masses. Central trachea. Chest: Decreased breath sounds at the bases with some crepitus bilaterally and rhonchi, mostly at the bases. Abdomen: Soft, nontender, nondistended. No hepatosplenomegaly. Extremities: No edema. No clubbing. No cyanosis. Neurological: The patient is awake, alert. She is oriented. She is moving all 4 extremities. LABORATORY: WBC 50.7, hemoglobin 12.9, hematocrit 41.3, platelets 249,000. Sodium 142, potassium 5, chloride 108, bicarbonate 22, BUN 33, creatinine 1.6, glucose 117, calcium 8.5. ASSESSMENT AND PLAN: 1. Encephalopathy. This is multifactorial. This patient has a urinary tract infection, pneumonia, and also bacteremia. On top of that, this patient also has been taking benzodiazepine and opiates at home. We will continue with the same management for now. We will monitor this patient closely. 2. Sepsis due to multifocal pneumonia, urinary tract infection, bacteremia. Continue broad- spectrum antibiotics. 3. Multifocal pneumonia. Pulmonary Department on board. We will continue with same management for now. 4. Suspected Coronavirus 2019. Lab work has been requested, but this is unlikely. 5. Transaminitis, likely due to sepsis. We will continue to monitor. Continue with IV fluids as well. 6. Type 2 diabetes. Blood sugar seems to be controlled. No changes. 7. Chronic kidney disease, aware. This is her baseline. 8. Hypokalemia, resolved. 9. History of coronary artery disease status post stent. 10. Chronic diastolic heart failure, aware. 11. The patient is not having any respiratory distress at this moment and actually the vital signs are getting better. I will continue with oxygen supplementation, broad-spectrum antibiotics due to her bacteremia, pneumonia, and urinary tract infection. I will repeat the blood culture in a couple days. cc: Von Fuchs MD
--- NOTE | 2019-08-09 15:13 | CONSULTATION ---
DATE OF CONSULTATION: 08/09/2019 REFERRING PHYSICIAN: Dr. Johnson. CHIEF COMPLAINT: Evaluation for shortness of breath and pneumonia. HISTORY OF PRESENTING ILLNESS: An 83-year-old female with past medical history of diastolic heart failure, coronary artery disease, status post stent placement in 2016, hypertension, diabetes, hyperlipidemia, presented to the hospital with lethargy and cough, being tested for COVID 19 infection. There is suspicion of Ativan overdose. PAST MEDICAL HISTORY: Hyperlipidemia, hypertension, diabetes, coronary artery disease, status post stent placement in 2016, diastolic heart failure. PAST SURGICAL HISTORY: Cataract surgery, bilateral hip surgery, back surgery, hysterectomy, carotid disease and stent placement in 2016. SOCIAL HISTORY: Nonsmoker. FAMILY HISTORY: Hypertension, coronary artery disease, and diabetes. REVIEW OF SYSTEMS: As detailed in history of presenting illness, otherwise noncontributory. MEDICATIONS: Medications in the hospital and at home where reviewed and they include: In the hospital, Zosyn, naloxone, heparin for DVT prophylaxis, Lasix, aspirin, and Tylenol. She is on IV fluid with half-normal saline at 70 mL an hour. PHYSICAL EXAMINATION: Vital Signs: Temperature 98.9 degrees, 95% on room air and currently on nasal cannula alternating. General: Awake and communicative. Neck: Trachea midline. Chest: A few crackles. Cardiac: S1, S2. Abdomen: Nontender. Extremities: There is +1 pedal edema. Neurologic: Awake and communicative. LABS AND INVESTIGATIONS: CBC and CMP seen. Creatinine 1.6. WBC is 50.74. The blood gases from yesterday, pH 7.44, pCO2 28, PO2 89 on room air. Microbiology reviewed with gram-negative rods. Urine: She has UTI. In blood, she also has gram-negative septicemia. Final identification is still pending. Chest, abdomen, pelvis CT scan shows extensive multifocal infiltrates concerning for pneumonia or viral infection. She has gallbladder stones and gallbladder distended. Surgery is consulted for possible cholecystitis. ASSESSMENT AND PLAN: An 83-year-old female with past medical history as above including diabetes, hypertension, chronic kidney disease, coronary artery disease status post stent placement, and diastolic heart failure, who presented to the hospital with 1. Multifocal pneumonia. Currently on antibiotics and we are monitoring, being tested for Coronavirus Disease 2019. 2. Distended gallbladder on CT scan and ultrasound. Cholecystitis is suspected and Surgery is consulted for further evaluation. 3. She has gram-negative sepsis and she is on antibiotics accordingly. 4. Follow up labs and x-rays and monitor clinical response closely. cc: Hedy Hathaway MD MTDD
[2019-08-09] MEDS ORDERED: LIPITOR PO SCH (21:00)
[2019-08-10 03:19] LABS: ALLEN TEST YES; BE -5.1 mmoll (-3.0-3.0); BLOOD TYPE ARTERIAL; HCO3-(ACT) 20.9 mmoll (20.0-26.0); METHB 1.1 % (0.0-1.5); O2(CT) 15.5 mL/dL (15.0-23.0); O2HB 96.8 % (95.0-99.0); PCO2(98.6) 40 mmHg (35-45); PO2(98.6) 109 mmHg (60-100); SAMPLE BLOOD; SAO2 99.5 % (95.0-100.0); THB 11.3 g/dL (11.5-17.4); pH(98.6) 7.32 (7.35-7.45)
[2019-08-10 03:20] LABS: MODALITY CANNULA
[2019-08-10] MEDS: TYLENOL PO PRN ×5 (03:44→21:59)
[2019-08-10] MEDS: ZOSYN 3.375 GM in NS 50 ML IV SCH ×3 (03:45→17:36)
[2019-08-10 04:25] LABS: BASO# 0.02 X1000 (0.0-0.2); BASO% 0.1 % (0.0-0.8); EOS# 0.02 X1000 (0.0-0.7); EOS% 0.1 % (0.0-10.0); HEMATOCRIT 36.1 % (37.0-47.0); HEMOGLOBIN 11.2 g/dL (12.0-16.0); IMM GRAN% 0.6 % (0.0-0.5); LYMPH# 0.83 X1000 (1.2-3.4); LYMPH% 2.4 % (20.5-51.1); MCH 31.3 PG (27-31); MCV 100.8 FL (81-99); MONO# 0.66 X1000 (0.11-0.59); MONO% 1.9 % (1.7-9.3); MPV 10.9 FL (7.4-10.4); NEUT# 32.15 X1000 (1.4-6.5); NEUT% 94.9 % (42.2-75.2); PLT 212 X1000 (130-400); RBC 3.58 XMIL (4.2-5.4); RDW 14.7 % (11.5-14.5); WBC 33.88 X1000 (4.8-10.8)
[2019-08-10 04:35] LABS: ALB/GLOB RATIO 0.5; CALCIUM 8.3 mg/dL (8.8-10.2); CREATININE 1.8 mg/dL (0.5-0.9); MAGNESIUM 1.3 mg/dL (1.5-2.7); PHOSPHORUS 3.4 mg/dL (2.7-4.5); POTASSIUM 4.6 mmol/L (3.5-5.1); TOTAL BILIRUBIN 1.06 mg/dL (0.20-1.00); TOTAL PROTEIN 5.7 g/dL (6.3-8.3)
[2019-08-10] MEDS: 1/2 NS 1,000 ML IV SCH (05:59)
--- NOTE | 2019-08-10 07:21 | Diag Imaging Result Doc PS360 ---
EXAM: CHEST-1 VIEW HISTORY: SOB TECHNIQUE: Single view COMPARISON: 08/08/2019 FINDINGS: The right hemidiaphragm is elevated. There is right basilar atelectasis and there may be a small underlying infiltrate. Small left lung infiltrates are more prominent. There is also small right pleural effusion. The heart is mildly prominent. IMPRESSION: Mild interval worsening Electronically signed by Moose Olivo 08/10/2019 7:18 AM
--- NOTE | 2019-08-10 08:00 | EKG Report ---
Test Performed on : 08/08/2019 2:41:35 PM Test Reason : AMS Blood Pressure : / mmHG Vent. Rate : 090 BPM Atrial Rate : 090 BPM P-R Int : 166 ms QRS Dur : 096 ms QT Int : 414 ms P-R-T Axes : 016 -30 019 degrees QTc Int : 506 ms Sinus rhythm. with premature atrial complexes. with aberrant conduction. Left axis deviation Minimal voltage criteria for LVH, may be normal variant Anterior infarct (cited on or before 02-APR-2019) Abnormal ECG When compared with ECG of 02-APR-2019 10:45, aberrant conduction. is now present Nonspecific T wave abnormality now evident in Inferior leads T wave inversion now evident in Anterior leads QT has lengthened Unconfirmed Result
[2019-08-10] MEDS: ASPIRIN PO SCH (08:17)
[2019-08-10] MEDS: HEPARIN SUBQ SCH ×3 (08:18→22:00)
[2019-08-10] MEDS: MIRALAX PO SCH (10:36)
--- NOTE | 2019-08-10 13:33 | PROGRESS NOTE ---
DATE: 08/10/2019 SUBJECTIVE: The patient is resting comfortably in bed. She is answering all my questions. She is not confused. She is eating. I will stop the IV fluids. She is bacteremic with Escherichia coli and also she has a urinary tract infection with Escherichia coli sensitive to the current treatment. X-ray seems to be a little bit worse, but she feels better. OBJECTIVE: Vital Signs: Temperature 97.6 degrees, pulse 69, respiratory rate 22, blood pressure 114/55, oxygen saturation 98 on 3 L of nasal cannula. HEENT: Head normocephalic, no trauma, PERRLA. Neck: Supple. No JVD. No masses. Central trachea. Chest: Decreased breath sounds at the bases with some crepitus bilaterally and rhonchi. Abdomen: Soft, nontender, nondistended. No hepatosplenomegaly. Extremities: No edema, no clubbing, no cyanosis. Neurological: The patient is awake, alert. She is oriented. She is moving all 4 extremities. LABORATORY: WBC 33.8, hemoglobin 11.2, hematocrit 36.1, platelets 212,000. Sodium 134, potassium 4.6, chloride 100, bicarbonate 19, BUN 39, creatinine 1.8, glucose 100, calcium 8.3, magnesium 1.3. AST 65, ALT 48, alkaline phosphatase 362, albumin 2. ASSESSMENT AND PLAN: 1. Encephalopathy, multifactorial due to urinary tract infection, pneumonia, bacteremia and possible opiate and benzodiazepine abuse. Continue with the same management for now. She seems to be getting much better. She is answering all my questions and following commands. 2. Sepsis due to multifocal pneumonia, urinary tract infection and bacteremia. Continue with broad-spectrum antibiotics. A urine culture and blood culture showed Escherichia coli. 3. Multifocal pneumonia as above. Continue with oxygen supplementation as well. 4. Suspected Coronavirus 2019, pending lab work results. 5. Transaminitis, likely due to sepsis. This is getting better. Continue with same management. 6. Type 2 diabetes, stable, controlled. Continue with same treatment. 7. Chronic kidney disease. This is her baseline. 8. Hypokalemia, resolved. 9. History of coronary artery disease status post stent, no chest pain at this moment. 10. Chronic diastolic heart failure. Aware. I will stop the IV fluids. This patient seems to be eating fine. 11. The patient is not having any respiratory distress. She is feeling better even though the x- ray looks a little bit worse today, continue with the same management. I will stop the IV fluids due to some pleural effusion. Pending COVID-19 results. 12. Hypomagnesemia. I will replace the magnesium. cc: Von Fuchs MD
--- NOTE | 2019-08-10 14:41 | PROVIDER PROGRESS NOTE ---
Progress Note Dr. Hathaway Progress Note/Pulmonary and or critical care Subjective: The patient is lying in bed on NC 3L. She states she is feeling better. She still has frequent dry cough with production at times. She denies any pain or pleurisy. Objective: Vital Signs: T 98 (no fever in last 24 hours), MN 72, RR 16, BP 115/61 and SaO2 99% on NC 3L. Physical Examination: General: Pleasant and cooperative. Lying in bed with no acute distress noted. HEENT: Normocephalic. Atraumatic. Trachea midline. Mucosa pink and moist. Chest: Even and unlabored. Symmetrical excursion. Auscultation reveals diminished breathing sounds bilaterally, diffuse rhonchi bilaterally and inspiratory crackles bibasilarly. CVS: S1 and S2 appreciated. Abdomen: Soft. Non-tender. Obese. Bowel sounds present in all 4 quadrants. Extremities: No pedal edema. No cyanosis. No clubbing. Neuro: Alert and oriented x 3. Answer simple questions. Follow simple commands. Labs and Radiology: Laboratory Results 08/09/19 08/09/19 08/10/19 15:34 20:36 02:00 WBC RBC Hgb Hct MCV MCH MCHC RDW Std Deviation Plt Count MPV Immature Gran % (Auto) Neut % (Auto) Lymph % (Auto) [place] % (Auto) Eos % (Auto) Baso % (Auto) Immature Gran # (Auto) Neut # (Auto) Lymph # (Auto) [place] # (Auto) Eos # (Auto) Baso # (Auto) Specimen Type Sample Site pH pCO2 pO2 HCO3 Base Excess Oxyhemoglobin ABG O2 Sat (Calculated) ABG O2 Saturation ABG Carboxyhemoglobin ABG Methemoglobin Josr Test A-a O2 Difference Total Hemoglobin Lactate Liter Flow Blood Gas Modality FiO2 % Sodium Potassium Chloride Carbon Dioxide Anion Gap BUN Creatinine Estimated GFR/1.73 m2 BUN/Creatinine Ratio Glucose POC Glucose 173 H D 163 H Calculated Osmolality Calcium Phosphorus Magnesium Total Bilirubin AST ALT Alkaline Phosphatase Total Protein Albumin Globulin Albumin/Globulin Ratio Plasma Lactate 1.0 08/10/19 08/10/19 08/10/19 03:10 04:11 04:11 WBC 33.88 H RBC 3.58 L Hgb 11.2 L Hct 36.1 L MCV 100.8 H MCH 31.3 H MCHC 31.0 L RDW Std Deviation 14.7 H Plt Count 212 MPV 10.9 H Immature Gran % (Auto) 0.6 H Neut % (Auto) 94.9 H Lymph % (Auto) 2.4 L [place] % (Auto) 1.9 Eos % (Auto) 0.1 Baso % (Auto) 0.1 Immature Gran # (Auto) 0.20 H Neut # (Auto) 32.15 H Lymph # (Auto) 0.83 L [place] # (Auto) 0.66 H Eos # (Auto) 0.02 Baso # (Auto) 0.02 Specimen Type ARTERIAL Sample Site R RADIAL pH 7.32 L pCO2 40 pO2 109 H HCO3 20.9 Base Excess -5.1 L Oxyhemoglobin 96.8 ABG O2 Sat (Calculated) 15.5 ABG O2 Saturation 99.5 ABG Carboxyhemoglobin 1.60 ABG Methemoglobin 1.1 Josr Test YES A-a O2 Difference 69.0 Total Hemoglobin 11.3 L Lactate 1.00 Liter Flow 3.0 Blood Gas Modality CANNULA FiO2 % 32.0 Sodium 134 L Potassium 4.6 Chloride 100 Carbon Dioxide 19 L Anion Gap 15 BUN 39 H Creatinine 1.8 H Estimated GFR/1.73 m2 27 BUN/Creatinine Ratio 22 Glucose 100 POC Glucose Calculated Osmolality 278 Calcium 8.3 L Phosphorus 3.4 Magnesium 1.3 L Total Bilirubin 1.06 H AST 65 H ALT 48 H Alkaline Phosphatase 362 H Total Protein 5.7 L Albumin 2.0 L Globulin 3.7 Albumin/Globulin Ratio 0.5 Plasma Lactate 08/10/19 08/10/19 08/10/19 06:14 08:08 11:44 WBC RBC Hgb Hct MCV MCH MCHC RDW Std Deviation Plt Count MPV Immature Gran % (Auto) Neut % (Auto) Lymph % (Auto) [place] % (Auto) Eos % (Auto) Baso % (Auto) Immature Gran # (Auto) Neut # (Auto) Lymph # (Auto) [place] # (Auto) Eos # (Auto) Baso # (Auto) Specimen Type Sample Site pH pCO2 pO2 HCO3 Base Excess Oxyhemoglobin ABG O2 Sat (Calculated) ABG O2 Saturation ABG Carboxyhemoglobin ABG Methemoglobin Josr Test A-a O2 Difference Total Hemoglobin Lactate Liter Flow Blood Gas Modality FiO2 % Sodium Potassium Chloride Carbon Dioxide Anion Gap BUN Creatinine Estimated GFR/1.73 m2 BUN/Creatinine Ratio Glucose POC Glucose 81 D 82 98 Calculated Osmolality Calcium Phosphorus Magnesium Total Bilirubin AST ALT Alkaline Phosphatase Total Protein Albumin Globulin Albumin/Globulin Ratio Plasma Lactate Assessment: Encephalopathy, multifactorial. Patient has UTI, pneumonia, and bacteremia. She has also been taking benzo and opiates at home. Sepsis secondary to pneumonia, UTI and bacteremia. Pneumonia, multifocal. [place] COVID-19, procalcitonin and respiratory viral panel tested with results pending. Sputum culture with Gram stain ordered, but uncollected. CXR today shows mild interval worsening with elevated right hemidiaphragm, right basilar atelectasis possibly with a small underlying infiltrate, small left lung infiltrates and small right pleural effusion. Urinary tract infection, positive for E. Coli. Bacteremia, positive for E. Coli. Distended gallbladder with numerous stones on CT scan and ultrasound. Cholecystitis suspected and Surgery on board. Chronic diastolic heart failure. Acute kidney injury. Worsened. Plan: Continue supplemental oxygen as needed. Continue antibiotic Zosyn. Continue diuresis as tolerated. We follow up CXR daily. We will follow up the results of COVID-19, procalcitonin, respiratory viral panel and sputum culture. Continue DVT prophylaxis.
[2019-08-10] MEDS ORDERED: MAGNESIUM SULFATE 2 GM/S.W.I. 2 GM/50 ML IVPB IV ONE (16:00)
--- NOTE | 2019-08-10 16:17 | GENERAL SURGERY PROGRESS NOTE ---
DATE: 08/10/2019 SUBJECTIVE: Ms. Butler says she feels better. She has less pain. She is afebrile. Heart rate 69, blood pressure 114/55. She has been eating food. Her bowels have moved. Her white count has fallen down to 34,000. Her LFTs all show improvement. Her urinary tract is growing E. coli. Her blood cultures are growing E. Coli, so I think this is basically urinary sepsis. I do not think her gallbladder is the cause of her problems. No new recommendations. cc: Julius Barrera MD
[2019-08-10] MEDS ORDERED: DITROPAN PO ONE (16:35)
[2019-08-10] MEDS ORDERED: B & O 16A SUPP PR PRN (16:36)
[2019-08-10] MEDS: ATIVAN PO PRN (21:59)
[2019-08-10] MEDS: MUCINEX PO PRN (21:59)
[2019-08-11] MEDS: TYLENOL PO PRN (01:01)
[2019-08-11] MEDS: ZOSYN 3.375 GM in NS 50 ML IV SCH ×4 (01:03→14:05)
[2019-08-11] MEDS ORDERED: VANCOMYCIN 1,400 MG in NS 250 ML IV SCH (02:00)
[2019-08-11] MEDS: TYLENOL WITH CODEINE #3 PO PRN ×3 (05:29→17:29)
[2019-08-11 07:10] LABS: BASO# 0.01 X1000 (0.0-0.2); EOS# 0.12 X1000 (0.0-0.7); EOS% 0.5 % (0.0-10.0); HEMATOCRIT 36.1 % (37.0-47.0); HEMOGLOBIN 11.3 g/dL (12.0-16.0); IMM GRAN# 0.06 X1000 (0.0-0.04); IMM GRAN% 0.2 % (0.0-0.5); LYMPH# 0.81 X1000 (1.2-3.4); LYMPH% 3.3 % (20.5-51.1); MCHC 31.3 g/dL (33-37); MCV 99.2 FL (81-99); MONO# 0.54 X1000 (0.11-0.59); MONO% 2.2 % (1.7-9.3); MPV 11.6 FL (7.4-10.4); NEUT% 93.8 % (42.2-75.2); PLT 185 X1000 (130-400); RBC 3.64 XMIL (4.2-5.4); RDW 14.5 % (11.5-14.5); WBC 24.64 X1000 (4.8-10.8)
[2019-08-11 07:24] LABS: BANDS 2 % (0-1); SEGS 92 % (42-75)
[2019-08-11 07:25] LABS: LYMPHS 2 % (21-51); MONO 4 % (1-9)
[2019-08-11 07:38] LABS: CALCIUM 8.6 mg/dL (8.8-10.2); CREATININE 1.7 mg/dL (0.5-0.9); POTASSIUM 4.7 mmol/L (3.5-5.1)
[2019-08-11] MEDS: HEPARIN SUBQ SCH ×2 (10:52→22:34)
[2019-08-11] MEDS: MUCINEX PO PRN ×2 (10:52→10:55)
[2019-08-11] MEDS: ASPIRIN PO SCH (10:53)
[2019-08-11] MEDS: MIRALAX PO SCH (10:53)
[2019-08-11] MEDS: ATIVAN PO PRN ×3 (10:53→22:34)
[2019-08-11] MEDS ORDERED: ZOFRAN IV PRN (11:26)
[2019-08-11] MEDS: ZOFRAN IV PRN ×2 (12:00→17:29)
[2019-08-11] MEDS ORDERED: MAGNESIUM SULFATE 2 GM/S.W.I. 2 GM/50 ML IVPB IV ONE (12:15)
[2019-08-11] MEDS ORDERED: ZYVOX 600 MG/D5W 600 MG/300 ML IVPB IV SCH (12:30)
--- NOTE | 2019-08-11 13:06 | PROGRESS NOTE ---
DATE: 08/11/2019 SUBJECTIVE: The patient is definitely more alert and oriented. Apparently she is eating well. No other issues noted as per nursing staff overnight. OBJECTIVE: Vital Signs: Temperature 98.1 degrees, heart rate 60, respiratory rate 19, blood pressure 152/60, O2 saturation 99% on 2 L nasal cannula. General Examination: This is a chronically ill-looking, 83-year-old female lying in bed, in no acute distress. Cardiovascular: S1, S2 heard. No murmurs, gallops, or rubs. Regular rate and rhythm. Respiratory: Crackles and rhonchi noted in both pulmonary suggs, mostly noted in both bases. The patient is not using any accessory muscles or having work of breathing. Abdomen: Soft, nontender to palpation. Bowel sounds present. No organomegaly. Extremities: No clubbing, cyanosis, or edema. Peripheral pulses present in both legs. Neurological: The patient is awake, oriented, alert x3. Moves all 4 extremities. LABORATORY DATA: White cell count is 24.64, with hemoglobin 11.3, hematocrit 36.1, platelets 185,000. BMP reveals creatinine 1.7. Calcium 8.6. ASSESSMENT AND PLAN: 1. Sepsis due to multifocal pneumonia, urinary tract infection, bacteremia that is secondary to Escherichia coli isolated in blood and also urine, but hopefully pansensitive so at this point, I am going to switch antibiotics from Zosyn to ceftriaxone 2 g IV q.24 hours. White cell count is getting better, from 33,000 yesterday to 24,000 today. 2. Encephalopathy. That condition is multifactorial due to urinary tract infection, pneumonia, bacteremia, possible opiate and benzodiazepine abuse, but clinically this patient is doing much better. She is answering my question, she knows where she is so at this point, we will continue to monitor. 3. Suspected [place] virus disease 2019. Lab still pending. 4. Transaminitis secondary to sepsis. Continues to get better. We will continue to monitor. 5. Diabetes mellitus, type 2. That condition is stable, well controlled. We will continue with the same medications. 6. History of coronary artery disease, status post stent placement. The patient reports feeling fine. No chest pain noted. At this point, we will continue with the same management. 7. Chronic diastolic heart failure. Aware. IV fluid was stopped yesterday. We will continue to monitor. 8. Hypomagnesemia. We will check magnesium today and if low we will replenish today. DISPOSITION: We will continue to monitor this patient closely. cc: Donnie Merino MD
[2019-08-11] MEDS: ROCEPHIN 2 GM in NS 50 ML IV SCH (14:02)
--- NOTE | 2019-08-11 16:33 | PROVIDER PROGRESS NOTE ---
Progress Note Dr. Hathaway Progress Note/Pulmonary and or critical care Subjective: The patient is sitting on the bedside chair on NC 4L. She is complaining of difficulty breathing when lying flat. She reports improving cough with less production today, but which per patient makes her nauseated. She still has frequent dry cough with production at times. She denies any pain or pleurisy. Objective: Vital Signs: T 97.3 (no fever in last 24 hours), UT 60, RR 20, BP 127/80 and SaO2 100% on NC 2L. Physical Examination: General: Pleasant and cooperative. Sitting on the bedside chair with no acute distress noted. HEENT: Normocephalic. Atraumatic. Trachea midline. Mucosa pink and moist. Chest: Even and unlabored. Symmetrical excursion. Auscultation reveals inspiratory crackles bilaterally, worse on RUL with crepitus noted. CVS: S1 and S2 appreciated. Abdomen: Soft. Non-tender. Obese. Bowel sounds present in all 4 quadrants. Extremities: No pedal edema. No cyanosis. No clubbing. Neuro: Alert and oriented x 3. Answer simple questions. Follow simple commands. Labs and Radiology: Laboratory Results 08/10/19 08/10/19 08/11/19 16:24 19:53 06:29 WBC RBC Hgb Hct MCV MCH MCHC RDW Std Deviation Plt Count MPV Immature Gran % (Auto) Neut % (Auto) Lymph % (Auto) [place] % (Auto) Eos % (Auto) Baso % (Auto) Immature Gran # (Auto) Neut # (Auto) Lymph # (Auto) [place] # (Auto) Eos # (Auto) Baso # (Auto) Segmented Neutrophils Band Neutrophils Lymphocytes Monocytes Sodium Potassium Chloride Carbon Dioxide Anion Gap BUN Creatinine Estimated GFR/1.73 m2 BUN/Creatinine Ratio Glucose POC Glucose 92 98 90 Calculated Osmolality Calcium Magnesium 08/11/19 08/11/19 08/11/19 07:03 07:03 07:03 WBC 24.64 H RBC 3.64 L Hgb 11.3 L Hct 36.1 L MCV 99.2 H MCH 31.0 MCHC 31.3 L RDW Std Deviation 14.5 Plt Count 185 MPV 11.6 H Immature Gran % (Auto) 0.2 Neut % (Auto) 93.8 H Lymph % (Auto) 3.3 L [place] % (Auto) 2.2 Eos % (Auto) 0.5 Baso % (Auto) 0.0 Immature Gran # (Auto) 0.06 H Neut # (Auto) 23.10 H Lymph # (Auto) 0.81 L [place] # (Auto) 0.54 Eos # (Auto) 0.12 Baso # (Auto) 0.01 Segmented Neutrophils 92 H Band Neutrophils 2 H Lymphocytes 2 L Monocytes 4 Sodium 136 Potassium 4.7 Chloride 100 Carbon Dioxide 20 L Anion Gap 16 BUN 36 H Creatinine 1.7 H Estimated GFR/1.73 m2 29 BUN/Creatinine Ratio 21 Glucose 107 H POC Glucose Calculated Osmolality 281 Calcium 8.6 L Magnesium 2.1 08/11/19 08/11/19 08:45 10:53 WBC RBC Hgb Hct MCV MCH MCHC RDW Std Deviation Plt Count MPV Immature Gran % (Auto) Neut % (Auto) Lymph % (Auto) [place] % (Auto) Eos % (Auto) Baso % (Auto) Immature Gran # (Auto) Neut # (Auto) Lymph # (Auto) [place] # (Auto) Eos # (Auto) Baso # (Auto) Segmented Neutrophils Band Neutrophils Lymphocytes Monocytes Sodium Potassium Chloride Carbon Dioxide Anion Gap BUN Creatinine Estimated GFR/1.73 m2 BUN/Creatinine Ratio Glucose POC Glucose 94 93 Calculated Osmolality Calcium Magnesium Assessment: Encephalopathy, multifactorial. Patient has UTI, pneumonia, and bacteremia. Improved. Sepsis secondary to pneumonia, UTI and bacteremia. Pneumonia, multifocal. [place] COVID-19, procalcitonin and respiratory viral panel tested with results pending. Sputum Gram stain showed no bacteria. Urinary tract infection, positive for E. Coli. Bacteremia, positive for E. Coli. Distended gallbladder with numerous stones on CT scan and ultrasound. Cholecystitis suspected and Surgery on board. Chronic diastolic heart failure. Acute kidney injury. Plan: Continue supplemental oxygen as needed. Continue antibiotic Rocephin per Hospitalist. Zosyn is discontinued today. Continue diuresis as tolerated. We will follow up the results of COVID-19, procalcitonin and respiratory viral panel. We start Zofran for nausea at this time. Continue DVT prophylaxis.
[2019-08-12] MEDS: TYLENOL WITH CODEINE #3 PO PRN ×2 (01:24→09:38)
[2019-08-12 05:03] LABS: BASO# 0.03 X1000 (0.0-0.2); BASO% 0.2 % (0.0-0.8); EOS# 0.14 X1000 (0.0-0.7); EOS% 0.9 % (0.0-10.0); HEMATOCRIT 38.4 % (37.0-47.0); HEMOGLOBIN 11.7 g/dL (12.0-16.0); IMM GRAN# 0.03 X1000 (0.0-0.04); IMM GRAN% 0.2 % (0.0-0.5); LYMPH# 1.18 X1000 (1.2-3.4); LYMPH% 7.4 % (20.5-51.1); MCHC 30.5 g/dL (33-37); MCV 98.5 FL (81-99); MONO# 0.45 X1000 (0.11-0.59); MONO% 2.8 % (1.7-9.3); MPV 11.3 FL (7.4-10.4); NEUT# 14.09 X1000 (1.4-6.5); NEUT% 88.5 % (42.2-75.2); PLT 214 X1000 (130-400); RDW 14.6 % (11.5-14.5); WBC 15.92 X1000 (4.8-10.8)
[2019-08-12 05:27] LABS: ALBUMIN 2.7 g/dL (3.5-5.0); CALCIUM 8.3 mg/dL (8.8-10.2); CREATININE 1.2 mg/dL (0.5-0.9); PHOSPHORUS 3.3 mg/dL (2.7-4.5); POTASSIUM 4.8 mmol/L (3.5-5.1)
[2019-08-12] MEDS: ASPIRIN PO SCH (09:38)
[2019-08-12] MEDS: HEPARIN SUBQ SCH ×2 (09:39→21:20)
[2019-08-12] MEDS: MIRALAX PO SCH (09:39)
--- NOTE | 2019-08-12 11:37 | PROGRESS NOTE ---
DATE: 08/12/2019 SUBJECTIVE: The patient reports breathing much better, eating well. No complaints at this time. OBJECTIVE: Vital Signs: Temperature 98.1 degrees, heart rate 65, respiratory rate 16, blood pressure 132/66, O2 saturation 100% on 3 L nasal cannula. General: This is a chronically ill- looking, 83-year-old, female, lying in bed in no acute distress. Cardiovascular: S1, S2 heard. No murmurs, gallops, or rubs. Regular rate and rhythm. Respiratory: Crackles and rhonchi noted in both pulmonary suggs, mostly noted in both bases. The patient is not using any accessory muscles or having work of breathing. Abdomen: Soft, nontender to palpation. Bowel sounds present. No organomegaly. Extremities: No clubbing, cyanosis, or edema. Peripheral pulses present in both legs. Neurological: The patient is awake, oriented x3. Moves all 4 extremities. LABORATORY DATA: White cell count is 15.92, hemoglobin 11.7, hematocrit 38.4, platelets 214,000. BMP reveals creatinine 1.2, with sodium 131. ASSESSMENT AND PLAN: 1. Sepsis due to multifocal pneumonia, urinary tract infection, bacteremia, secondary to Escherichia coli isolated from blood and urine. Patient receiving here, ceftriaxone 2 grams intravenously every 24 hours. I am planning to continue with Levaquin by mouth at discharge. White cell count has been improving nicely from 24,000 to 15,000 today. Will continue with the same management. 2. Encephalopathy, resolved. The patient is more oriented and alert. 3. Suspected Coronavirus Disease 2019. Laboratory returned negative. 4. Transaminitis secondary to sepsis. That continues to improve. Will continue to monitor. 5. Diabetes mellitus type 2. That condition is well controlled. Will continue with the current management, in this case, it is sliding scale insulin. 6. History of coronary artery disease, status post stent placement. The patient is doing okay and not complaining of chest pain. Will continue with home medications. 7. Chronic diastolic heart failure. Will continue to monitor. At this point, she has more crackles today on the physical examination. Will continue with home medications. 8. Hypomagnesemia, resolved. 9. Disposition. We are trying to send this patient to rehab facility. Most likely, she will be ready tomorrow. Physical Therapy and Occupational Therapy have been consulted. Will see what they have to say. cc: Donnie Merino MD
[2019-08-12] MEDS: ATIVAN PO PRN (12:34)
[2019-08-12] MEDS: NORCO-5 PO PRN ×2 (12:34→18:40)
[2019-08-12] MEDS: ZOFRAN IV PRN (12:34)
[2019-08-12] MEDS: ROCEPHIN 2 GM in NS 50 ML IV SCH (14:30)
[2019-08-12] MEDS: DUONEB (A & A) INH SCH ×2 (15:50→23:06)
[2019-08-12] MEDS: MUCOMYST 20% INH SCH ×2 (15:50→20:56)
--- NOTE | 2019-08-12 18:10 | PROVIDER PROGRESS NOTE ---
Progress Note Dr. Hathaway Progress Note/Pulmonary and or critical care Subjective: The patient is lying in bed NC 3L. She is complaining of nausea with anxiety and pain at this time. She has productive cough with thick yellow greyish phlegm noted in the basin at the bedside. She denies any pain or pleurisy. Objective: Vital Signs: T 98.1 (no fever in last 24 hours), [place] 65, RR 16, BP 132/66 and SaO2 100% on NC 3L. Physical Examination: General: Lying in bed with no acute distress noted. HEENT: Normocephalic. Atraumatic. Trachea midline. Mucosa pink and moist. Chest: Even and unlabored. Symmetrical excursion. Auscultation reveals inspiratory crackles bilaterally with crepitus on the right side of the lungs noted. CVS: S1 and S2 appreciated. Abdomen: Soft. Non-tender. Obese. Bowel sounds present in all 4 quadrants. Extremities: No pedal edema. No cyanosis. No clubbing. Neuro: Alert and oriented x 3. Answer simple questions. Follow simple commands. Labs and Radiology: Laboratory Results 08/08/19 08/08/19 08/11/19 17:53 21:40 17:15 WBC RBC Hgb Hct MCV MCH MCHC RDW Std Deviation Plt Count MPV Immature Gran % (Auto) Neut % (Auto) Lymph % (Auto) [place] % (Auto) Eos % (Auto) Baso % (Auto) Immature Gran # (Auto) Neut # (Auto) Lymph # (Auto) [place] # (Auto) Eos # (Auto) Baso # (Auto) Sodium Potassium Chloride Carbon Dioxide Anion Gap BUN Creatinine Estimated GFR/1.73 m2 BUN/Creatinine Ratio Glucose POC Glucose 152 H D Calculated Osmolality Calcium Phosphorus Magnesium Albumin Procalcitonin SEE COMMENTS Coronavirus (PCR) SEE COMMENTS 08/11/19 08/12/19 08/12/19 21:45 04:45 04:45 WBC 15.92 H RBC 3.90 L Hgb 11.7 L Hct 38.4 MCV 98.5 MCH 30.0 MCHC 30.5 L RDW Std Deviation 14.6 H Plt Count 214 MPV 11.3 H Immature Gran % (Auto) 0.2 Neut % (Auto) 88.5 H Lymph % (Auto) 7.4 L [place] % (Auto) 2.8 Eos % (Auto) 0.9 Baso % (Auto) 0.2 Immature Gran # (Auto) 0.03 Neut # (Auto) 14.09 H Lymph # (Auto) 1.18 L [place] # (Auto) 0.45 Eos # (Auto) 0.14 Baso # (Auto) 0.03 Sodium 131 L Potassium 4.8 Chloride 97 L Carbon Dioxide 21 L Anion Gap 13 BUN 25 H Creatinine 1.2 H Estimated GFR/1.73 m2 43 BUN/Creatinine Ratio 21 Glucose 147 H POC Glucose 144 H Calculated Osmolality 270 Calcium 8.3 L Phosphorus 3.3 Magnesium Albumin 2.7 L Procalcitonin Coronavirus (PCR) 08/12/19 08/12/19 08/12/19 04:45 07:27 11:24 WBC RBC Hgb Hct MCV MCH MCHC RDW Std Deviation Plt Count MPV Immature Gran % (Auto) Neut % (Auto) Lymph % (Auto) [place] % (Auto) Eos % (Auto) Baso % (Auto) Immature Gran # (Auto) Neut # (Auto) Lymph # (Auto) [place] # (Auto) Eos # (Auto) Baso # (Auto) Sodium Potassium Chloride Carbon Dioxide Anion Gap BUN Creatinine Estimated GFR/1.73 m2 BUN/Creatinine Ratio Glucose POC Glucose 123 H 190 H D Calculated Osmolality Calcium Phosphorus Magnesium 2.5 Albumin Procalcitonin Coronavirus (PCR) 08/12/19 14:54 WBC RBC Hgb Hct MCV MCH MCHC RDW Std Deviation Plt Count MPV Immature Gran % (Auto) Neut % (Auto) Lymph % (Auto) [place] % (Auto) Eos % (Auto) Baso % (Auto) Immature Gran # (Auto) Neut # (Auto) Lymph # (Auto) [place] # (Auto) Eos # (Auto) Baso # (Auto) Sodium Potassium Chloride Carbon Dioxide Anion Gap BUN Creatinine Estimated GFR/1.73 m2 BUN/Creatinine Ratio Glucose POC Glucose 174 H Calculated Osmolality Calcium Phosphorus Magnesium Albumin Procalcitonin Coronavirus (PCR) Assessment: Encephalopathy, multifactorial. Patient has UTI, pneumonia, and bacteremia. Improved. Sepsis secondary to pneumonia, UTI and bacteremia. Pneumonia, multifocal. COVID-19 is negative. Sputum culture on 08/10/19 shows no growth. Urinary tract infection, positive for E. Coli. Bacteremia, positive for E. Coli. Distended gallbladder with numerous stones on CT scan and ultrasound. Cholecystitis suspected and Surgery on board. Chronic diastolic heart failure. Acute kidney injury. Improving. Plan: Continue supplemental oxygen as needed with weaning as tolerated. We are switching Ventolin inhaler to DuoNeb and adding Mucomyst as COVID-19 is negative. Continue antibiotic Rocephin. Continue diuresis as tolerated. Continue Zofran for nausea at this time. Continue DVT prophylaxis.
[2019-08-12] MEDS: DUONEB (A & A) INH PRN (20:57)
[2019-08-13] MEDS: NORCO-5 PO PRN ×4 (00:01→20:07)
[2019-08-13] MEDS: ATIVAN PO PRN ×2 (00:01→12:25)
[2019-08-13] MEDS: DUONEB (A & A) INH SCH ×4 (04:16→22:03)
[2019-08-13 07:47] LABS: BASO# 0.03 X1000 (0.0-0.2); BASO% 0.2 % (0.0-0.8); EOS# 0.02 X1000 (0.0-0.7); EOS% 0.1 % (0.0-10.0); HEMATOCRIT 43.4 % (37.0-47.0); HEMOGLOBIN 13.2 g/dL (12.0-16.0); IMM GRAN# 0.05 X1000 (0.0-0.04); IMM GRAN% 0.3 % (0.0-0.5); LYMPH# 0.69 X1000 (1.2-3.4); MCH 30.2 PG (27-31); MCHC 30.4 g/dL (33-37); MCV 99.3 FL (81-99); MONO% 8.2 % (1.7-9.3); MPV 12.1 FL (7.4-10.4); NEUT# 14.86 X1000 (1.4-6.5); NEUT% 87.2 % (42.2-75.2); PLT 200 X1000 (130-400); RBC 4.37 XMIL (4.2-5.4); RDW 14.6 % (11.5-14.5); WBC 17.05 X1000 (4.8-10.8)
[2019-08-13 08:18] LABS: ALBUMIN 2.7 g/dL (3.5-5.0); CALCIUM 9.4 mg/dL (8.8-10.2); CREATININE 1.2 mg/dL (0.5-0.9); PHOSPHORUS 3.1 mg/dL (2.7-4.5); POTASSIUM 4.6 mmol/L (3.5-5.1)
[2019-08-13] MEDS: MUCOMYST 20% INH SCH ×2 (08:26→19:59)
[2019-08-13 09:03] LABS: ANISOCYTOSIS 1+; HYPOCHROM 1+; LARGE PLATELETS 1+; LYMPHS 4 % (21-51); MONO 8 % (1-9); SEGS 88 % (42-75)
[2019-08-13] MEDS: HEPARIN SUBQ SCH (09:19)
--- NOTE | 2019-08-13 09:51 | GENERAL SURGERY PROGRESS NOTE ---
DATE: 08/13/2019 Ms. Butler' white count is 17,000, which is a bump up. She has complained about her abdomen, so we will go ahead and get a HIDA scan on her to see if her gallbladder actually empties or whether it is obstructed. She has been eating. cc: Julius Barrera MD
--- NOTE | 2019-08-13 09:55 | Diag Imaging Result Doc PS360 ---
EXAM: CHEST-1 VIEW 08/13/2019 HISTORY: pneumonia TECHNIQUE: AP portable at 0947 COMMENT: Compared to the previous study of 08/10/2019 there is increased interstitial opacity and some platelike opacities particularly in the right base. IMPRESSION: Worsened pulmonary edema and/or pneumonia with subsegmental atelectasis particularly in the right lower lobe. Electronically signed by Jairo Thomas 08/13/2019 9:53 AM
[2019-08-13] MEDS ORDERED: LASIX IV ONE (10:15)
[2019-08-13] MEDS: ASPIRIN PO SCH (12:17)
[2019-08-13] MEDS: MIRALAX PO SCH (12:18)
[2019-08-13] MEDS: VITAMIN D PO SCH (12:19)
--- NOTE | 2019-08-13 12:23 | Diag Imaging Result Doc PS360 ---
EXAM: HIDA SCAN W/O EJECT. FRACTION INDICATION: abd pain/gallstones TECHNIQUE: 5.8 mCi of technetium 99 Choletec was administered intravenously and images were obtained in usual fashion after administration. COMPARISON: None. FINDINGS: There was normal immediate hepatocellular uptake after administration of the radiotracer. Activity is seen in small bowel beginning at about 12 minutes post administration. At 60 minutes post administration, there was still no gallbladder filling and most of the radiotracer within small bowel at this point. IMPRESSION: Nonfilling of the gallbladder which can indicate acute cholecystitis. However, chronic cholecystitis, nonfasting, or prolonged fasting can also have this effect. Electronically signed by Anuel Hernandez 08/13/2019 12:20 PM
--- NOTE | 2019-08-13 14:38 | PROGRESS NOTE ---
DATE: 08/13/2019 SUBJECTIVE: I have seen and examined Ms. Butler today. Ms. Butler referred to be doing fair. Still has some abdominal discomfort. Early on today, I talked with the surgeon, Dr. Barrera, who plans to take the gallbladder out because of the patient's continued symptoms, elevation in the white cell count, and abnormal HIDA scan. OBJECTIVE: Vital Signs: Blood pressure is 148/87, pulse of 92, respirations are 16, temperature is 98.7 degrees. General Examination: Ms. Butler is an 83-year-old, female. She is in bed. No distress. HEENT: Mucosa is pink and moist. Anicteric. Acyanotic. Neck: Supple. Chest: Clear to auscultation. There were no crepitations. No rhonchi. Cardiovascular: Regular rate and rhythm. No murmurs, no rubs, no gallops. GI: Abdomen was soft. There is some tenderness to the right flank, to the right upper quadrant. There was no Rooney's sign. Extremities: There is no pedal edema. REGISTERED RADIOGRAPHER: The patient is awake, alert, oriented. There is no focal deficit. Laboratory Data: WBC is up to 17.05, hemoglobin is 13.3, platelet count of 200,000. Chemistry is also reviewed. Creatinine of 1.2. Rest of chemistry is unremarkable. Current Medications: Have all been reviewed. She continues to be on ceftriaxone. ASSESSMENT: 1. Sepsis on presentation secondary to multifocal pneumonia, Escherichia coli urinary tract infection complicated with bacteremia, subsequent blood cultures have been negative, and cholecystitis. 2. Altered mental status secondary to global encephalopathy, presumably from infectious-induced, improved. 3. History of coronary artery disease, noted. 4. Diabetes mellitus type 2. Patient continues to be on insulin regimen. 5. Cholelithiasis with extremely abnormal HIDA scan, concerning for acute cholecystitis. The patient is pending a cholecystectomy today. PLAN: In general, I think Ms. Butler seems to be stable but still symptomatic. She is on ideal antimicrobial coverage for the urinary tract infection and the bacteremia. In fact, the subsequent blood culture has been negative. However, she continues to be mildly symptomatic and HIDA scan this morning is remarkably abnormal so there is a plan for surgery today. We will re- evaluate her after the surgery. cc: Ok Torres MD
[2019-08-13] MEDS: ROCEPHIN 2 GM in NS 50 ML IV SCH (15:02)
[2019-08-13] MEDS ORDERED: FENTANYL ONE (16:55)
[2019-08-13] MEDS ORDERED: DIPRIVAN 1% ONE (17:30)
[2019-08-13] MEDS ORDERED: XYLOCAINE-MPF 2% ONE ×2 (17:33→18:29)
--- NOTE | 2019-08-13 17:38 | PROVIDER PROGRESS NOTE ---
Progress Note Dr. Hathaway Progress Note/Pulmonary and or critical care Subjective: The patient is lying in bed NC 3L. She still has nausea with RUQ discomfort up to right lower chest. She underwent HIDA scan this morning. She states she is going to have surgery per Dr. Barrera. Her cough is improved some today. Objective: Vital Signs: T 98.6 (no fever in last 24 hours), [place] 94, RR 16, BP 138/75 and SaO2 98% on NC 2L. Physical Examination: General: Lying in bed with no acute distress noted. HEENT: Normocephalic. Atraumatic. Trachea midline. Mucosa pink and moist. Chest: Even and unlabored. Symmetrical excursion. Auscultation reveals inspiratory crackles bilaterally with crepitus on the right side of the lungs noted. CVS: S1 and S2 appreciated. Abdomen: Soft. RUQ discomfort up to right lower chest. Obese. Bowel sounds present in all 4 quadrants. Extremities: No pedal edema. No cyanosis. No clubbing. Neuro: Alert and oriented x 3. Answer simple questions. Follow simple commands. Labs and Radiology: Laboratory Results 08/12/19 08/13/19 08/13/19 21:33 06:44 06:49 WBC RBC Hgb Hct MCV MCH MCHC RDW Std Deviation Plt Count MPV Immature Gran % (Auto) Neut % (Auto) Lymph % (Auto) [place] % (Auto) Eos % (Auto) Baso % (Auto) Immature Gran # (Auto) Neut # (Auto) Lymph # (Auto) [place] # (Auto) Eos # (Auto) Baso # (Auto) Segmented Neutrophils Lymphocytes Monocytes Hypochromia Large Platelets Anisocytosis Macrocytosis Sodium 132 L Potassium 4.6 Chloride 96 L Carbon Dioxide 19 L Anion Gap 17 BUN 24 H Creatinine 1.2 H Estimated GFR/1.73 m2 43 BUN/Creatinine Ratio 20 Glucose 150 H POC Glucose 163 H 140 H Calculated Osmolality 271 Calcium 9.4 Phosphorus 3.1 Magnesium Albumin 2.7 L 08/13/19 08/13/19 08/13/19 06:49 06:49 10:35 WBC 17.05 H RBC 4.37 Hgb 13.2 Hct 43.4 MCV 99.3 H MCH 30.2 MCHC 30.4 L RDW Std Deviation 14.6 H Plt Count 200 MPV 12.1 H Immature Gran % (Auto) 0.3 Neut % (Auto) 87.2 H Lymph % (Auto) 4.0 L [place] % (Auto) 8.2 Eos % (Auto) 0.1 Baso % (Auto) 0.2 Immature Gran # (Auto) 0.05 H Neut # (Auto) 14.86 H Lymph # (Auto) 0.69 L [place] # (Auto) 1.40 H Eos # (Auto) 0.02 Baso # (Auto) 0.03 Segmented Neutrophils 88 H Lymphocytes 4 L Monocytes 8 Hypochromia 1+ Large Platelets 1+ Anisocytosis 1+ Macrocytosis 1+ Sodium Potassium Chloride Carbon Dioxide Anion Gap BUN Creatinine Estimated GFR/1.73 m2 BUN/Creatinine Ratio Glucose POC Glucose 189 H Calculated Osmolality Calcium Phosphorus Magnesium 2.0 Albumin 08/13/19 15:59 WBC RBC Hgb Hct MCV MCH MCHC RDW Std Deviation Plt Count MPV Immature Gran % (Auto) Neut % (Auto) Lymph % (Auto) [place] % (Auto) Eos % (Auto) Baso % (Auto) Immature Gran # (Auto) Neut # (Auto) Lymph # (Auto) [place] # (Auto) Eos # (Auto) Baso # (Auto) Segmented Neutrophils Lymphocytes Monocytes Hypochromia Large Platelets Anisocytosis Macrocytosis Sodium Potassium Chloride Carbon Dioxide Anion Gap BUN Creatinine Estimated GFR/1.73 m2 BUN/Creatinine Ratio Glucose POC Glucose 170 H Calculated Osmolality Calcium Phosphorus Magnesium Albumin Assessment: Encephalopathy, multifactorial. Patient has UTI, pneumonia, and bacteremia. Improved. Sepsis secondary to pneumonia, UTI and bacteremia. Pneumonia, multifocal. COVID-19 is negative. Sputum culture on 08/10/19 shows no growth. Clinically improved. CXR today shows worsened pulmonary edema +/- pneumonia with subsegmental atelectasis particularly in the RLL. Urinary tract infection, positive for E. Coli. Bacteremia, positive for E. Coli. Distended gallbladder with numerous stones on CT scan and ultrasound. Cholecystitis suspected and Surgery on board. Patient has persistent nausea and abdominal pain with worsened leukocytosis. HIDA scan this morning and gallbladder removal planned today per Dr. Barrera Chronic diastolic heart failure. Acute kidney injury. Stable. Protein calorie malnutrition. Plan: Continue supplemental oxygen as needed with weaning as tolerated. Continue bronchodilators and Mucomyst. Continue antibiotic Rocephin. Continue diuresis as tolerated. We are giving extra 60mg lasix today. We follow CXR tomorrow morning. We initiate Cardiology Consultation. Continue Zofran for nausea at this time. Continue DVT prophylaxis. Cholecystectomy planned today.
[2019-08-13] MEDS ORDERED: SENSORCAINE 0.25%/EPI 1:200,000 ONE (17:42)
[2019-08-13] MEDS ORDERED: LR 1,000 ML ONE (17:43)
[2019-08-13] MEDS ORDERED: SODIUM CHLORIDE 0.9% ONE (17:43)
[2019-08-13] MEDS ORDERED: QUELICIN (DOSE) ONE (18:29)
[2019-08-13] MEDS ORDERED: PITRESSIN ONE (18:29)
[2019-08-13] MEDS ORDERED: EPHEDRINE ONE (18:29)
--- NOTE | 2019-08-13 18:45 | Diag Imaging Result Doc PS360 ---
EXAM: OPERATIVE CHOLANGIOGRAM HISTORY: ACUTE CALCOUS CHOLECYSTITIS TECHNIQUE: Single view COMPARISON: None. FINDINGS: There is a large filling defect in the distal common bile duct consistent with stone. Electronically signed by Moose Olivo 08/13/2019 6:43 PM
--- NOTE | 2019-08-13 19:24 | OPERATIVE NOTE ---
DATE: 08/12/2019 NAME OF PROCEDURE: Laparoscopic cholecystectomy with operative cholangiogram. SURGEON: Julius Barrera MD. RELATIONSHIP EXECUTIVE: Baljinder. PREOPERATIVE DIAGNOSIS: Acute calculous cholecystitis. POSTOPERATIVE DIAGNOSIS: Acute calculous cholecystitis with choledocholithiasis. FINDINGS: The cholangiogram revealed a somewhat dilated common duct and there was a filling defect distally. There was some flow around the filling defect into the duodenum. DESCRIPTION OF PROCEDURE: Satisfactory general endotracheal anesthesia was achieved. The abdomen was prepped and draped in sterile fashion. We anesthetized skin at the base of the umbilicus and incised the skin and carried our incision down to the fascia. We scored the fascia and introduced an 11 trocar, Optiview technique. We insufflated through this trocar under direct visualization and used an 11 trocar in the midepigastrium, a 5 trocar in the midclavicular line, and a 5 trocar near the anterior axillary line. We placed the patient in reverse Trendelenburg and turned her to the left. The gallbladder was dilated. We grasped the fundus and reflected cephalad. We then dissected the omental adhesions off the fundus and infundibulum. We dissected the triangle of [place], identified the cystic artery, clipped it proximally x2, distally x1, and divided it. We clipped the cystic duct near the junction of the gallbladder. We incised the cystic duct and introduced a Iftikhar catheter, shot the cholangiogram, and the findings above were noted. We removed the cholangiogram catheter, clipped the cystic duct on the opposite side of the cystic ductotomy x2, and then transected it. We used the cautery spatula to dissect the gallbladder away from the liver. There was some bleeding from the gallbladder fossa. We used the cautery at a higher setting to achieve satisfactory hemostasis of the gallbladder fossa. We then the gallbladder from the edge of the liver. We changed the videolaparoscope to the midepigastric trocar, introduced the EndoCatch, placed the gallbladder within the bag. We then delivered the gallbladder out of the abdominal cavity through the umbilical trocar site. We did have to enlarge the fascial incision slightly to get it out. We then looked back. Hemostasis again remained satisfactory. We aspirated what fluid had collected. We used a Keyshawn-Reese wound closure for the epigastrium. We desufflated and removed our trocars. We closed the fascia at the umbilicus with a 2-0 Polysorb fascial stitch x3. We then closed the skin with 4-0 Polysorb subcuticular stitches and 4-0 Biosyn. Telfa and sterile OpSites were applied. She tolerated it well and was sent to the recovery room in satisfactory condition. cc: Julius Barrera MD
[2019-08-13] MEDS: DILAUDID ONE ×2 (19:35→19:43)
[2019-08-13] MEDS ORDERED: NORCO-5 ONE (20:03)
[2019-08-14] MEDS: NORCO-5 PO PRN (00:26)
[2019-08-14] MEDS: DUONEB (A & A) INH SCH ×4 (03:35→22:58)
[2019-08-14] MEDS: DILAUDID IV PRN ×3 (04:54→21:47)
[2019-08-14 06:36] LABS: BASO# 0.01 X1000 (0.0-0.2); BASO% 0.1 % (0.0-0.8); EOS# 0.04 X1000 (0.0-0.7); EOS% 0.3 % (0.0-10.0); HEMOGLOBIN 12.5 g/dL (12.0-16.0); IMM GRAN# 0.06 X1000 (0.0-0.04); IMM GRAN% 0.5 % (0.0-0.5); LYMPH# 0.87 X1000 (1.2-3.4); LYMPH% 6.6 % (20.5-51.1); MCH 30.9 PG (27-31); MCHC 31.3 g/dL (33-37); MONO# 1.29 X1000 (0.11-0.59); MONO% 9.8 % (1.7-9.3); MPV 11.9 FL (7.4-10.4); NEUT# 10.84 X1000 (1.4-6.5); NEUT% 82.7 % (42.2-75.2); PLT 196 X1000 (130-400); RBC 4.04 XMIL (4.2-5.4); RDW 14.4 % (11.5-14.5); WBC 13.11 X1000 (4.8-10.8)
[2019-08-14 06:58] LABS: ALBUMIN 2.5 g/dL (3.5-5.0); CALCIUM 9.3 mg/dL (8.8-10.2); CREATININE 1.3 mg/dL (0.5-0.9); PHOSPHORUS 4.1 mg/dL (2.7-4.5); POTASSIUM 4.9 mmol/L (3.5-5.1)
--- NOTE | 2019-08-14 07:15 | Diag Imaging Result Doc PS360 ---
EXAM: CHEST-1 VIEW INDICATION: SOB TECHNIQUE: One view COMPARISON: 08/13/2019 FINDINGS: There are bilateral small effusions that have probably increased slightly during the interval. Bibasilar subsegmental atelectasis, more prominent on the right, is essentially stable. Pulmonary edema +/- pneumonia is grossly unchanged. No new consolidation is identified. Cardiac silhouette is stable. IMPRESSION: Slight increase in pleural effusions. Stable chest, otherwise. Electronically signed by Anuel Hernandez 08/14/2019 7:13 AM
--- NOTE | 2019-08-14 09:05 | GENERAL SURGERY PROGRESS NOTE ---
DATE: 08/14/2019 SUBJECTIVE: Ms. Butler is now postop day 1 after laparoscopic cholecystectomy. She is doing generally well. She is taken liquid satisfactory this morning. Her white count has fallen to 13,000. She does have a filling defect in her distal common duct. I have asked GI to see her regarding a possible ERCP. cc: Julius Barrera MD
[2019-08-14] MEDS: MUCOMYST 20% INH SCH ×2 (09:40→20:02)
[2019-08-14] MEDS: MIRALAX PO SCH (10:28)
[2019-08-14] MEDS: ASPIRIN PO SCH (10:28)
[2019-08-14] MEDS: ZOFRAN IV PRN ×2 (10:29→21:46)
[2019-08-14] MEDS ORDERED: DIPRIVAN 1% ONE (10:31)
--- NOTE | 2019-08-14 11:12 | GASTROENTEROLOGY CONSULTATION ---
DATE: 08/14/2019 REASON FOR CONSULTATION: Choledocholithiasis and abnormal LFT's. HISTORY OF PRESENT ILLNESS: Ms. Anaid Butler is an 83-year-old woman with past medical history of hypertension, hyperlipidemia, and noninsulin dependent diabetes, chronic kidney disease stage 3, coronary artery disease status post ND and stents, who presented with malaise with lethargy and cough. Initially, diagnosed with sepsis secondary to multifocal pneumonia. She also was thought to have acute encephalopathy secondary to benzodiazepine and opioid overdose. On presentation, she was noted to have acute kidney injury, [*] NSTEMI, transaminitis. She had an abdominal ultrasound and CT that showed numerous stones in the gallbladder. Extensive multifocal infiltrates in the lungs. Ultrasound showed a common bile duct measuring 6.6 mm and a distended gallbladder. Follow-up HIDA scan yesterday showed nonfilling of the gallbladder consistent with acute cholecystitis. She underwent laparoscopic cholecystectomy yesterday with Dr. Barrera. Intraoperative cholangiogram showed a large filling defect in the distal common bile duct consistent with stone. Currently, she reports some abdominal pain diffusely. No nausea, vomiting, or fevers. No shortness of breath. She denies a history of prior symptoms in the past. No prior ERCP. She has had a colonoscopy with Dr. Bailey in the past. FAMILY HISTORY: Liver disease or GI malignancies. REVIEW OF SYSTEMS: As per HPI, otherwise 12 point review of systems is negative. PAST MEDICAL HISTORY: As per HPI. PAST SURGICAL HISTORY: She has had multiple back surgeries, bilateral hip surgery, cataract surgery, and coronary stent in 2005. SOCIAL HISTORY: No smoking, alcohol, or drug use. FAMILY HISTORY: Coronary artery disease in her father. HOME MEDICATIONS: 1. Isosorbide mononitrate. 2. Atorvastatin. 3. Aspirin 81 mg daily. 4. Glipizide. 5. Lorazepam. 6. Carvedilol. 7. Vitamin D. 8. Diltiazem. 9. Furosemide. PHYSICAL EXAMINATION: Vital Signs: Temperature is 97.4, heart rate of 88, respiratory 20, blood pressure 107/59, and O2 saturation 96% on 4 L nasal cannula. General: The patient is awake, alert, and oriented in no acute distress. HEENT: Sclerae anicteric. Moist mucous membranes. Extraocular motor intact. Neck: Supple. No JVD or lymphadenopathy. Cardiac: Regular rate and rhythm. No murmurs, rubs, or gallops. Lungs: Clear to auscultation bilaterally. Normal work of breathing. No wheezing. Abdomen: Stab wounds are clean, dry, and intact. Belly is soft. Bowel sounds are present. Mild tenderness to palpation throughout. Extremities: No clubbing, cyanosis, or edema. Neurologic: Nonfocal. LABORATORY: White count of 13.11 from 15.7 on 08/08. Hemoglobin 12.5 and platelets of 196,000. Sodium 131, potassium 4.9, chloride 93, bicarb 25, BUN of 25, and creatinine of 1.3 from 1.8. Glucose of 150. Last LFTs were done on 08/09 showed a bilirubin of 1.6, AST of 65, ALT of 48, alkaline phosphatase of 362, total protein of 5.7, and albumin of 2.0. IMAGING: As mentioned in HPI. Chest x-ray shows slight increase of pleural effusions. Stable chest otherwise. ASSESSMENT AND PLAN: Ms. Anaid Butler is an 83-year-old woman who presented with altered mental status in the setting of benzo plus or minus opioid overdose and multifocal pneumonia. She was found to have acute cholecystitis and choledocholithiasis status post laparoscopic cholecystectomy with intraoperative cholangiogram showing a large filling defect in the distal common bile duct consistent with choledocholithiasis. She currently complains of abdominal pain. Her white count has improved significantly since admission. She is currently on antibiotics with ceftriaxone only. She has been receiving her aspirin 81 mg daily. We will keep her n.p.o. for now and plan for ERCP today with Dr. Bailey, whom I have discussed this case with the patient. The risks and benefits were discussed with the patient. All questions were answered. Further recommendations postprocedure. Thank you for this consult. We will follow with you. Please call with any questions or concerns.
[2019-08-14] MEDS ORDERED: QUELICIN (DOSE) ONE (11:55)
[2019-08-14] MEDS ORDERED: DECADRON ONE (11:55)
[2019-08-14] MEDS ORDERED: ZOFRAN ONE (11:55)
--- NOTE | 2019-08-14 12:25 | Diag Imaging Result Doc PS360 ---
EXAM: ERCP-BILIARY AND PANCREATIC INDICATION: CBD STONE, REMOVED STONE, PUT UP STENT TECHNIQUE: COMPARISON: 08/14/2019 FINDINGS: Four spot fluoroscopic images were provided, which were performed during ERCP by Dr. Bailey. On the initial images, a filling defect is noted in the distal common bile duct indicating a stone, which was removed during the procedure. The common bile duct appears somewhat dilated. No definite stricture is identified. On the final image, there is a newly placed biliary stent identified in the expected position. IMPRESSION: As above. Please correlate with live fluoroscopic imaging. Electronically signed by Anuel Hernandez 08/14/2019 12:23 PM
--- NOTE | 2019-08-14 12:36 | OPERATIVE NOTE ---
PROCEDURE DATE: PROCEDURE: ERCP, sphincterotomy, stone extraction, and stent placement. PREOPERATIVE DIAGNOSIS: Choledocholithiasis. POSTOPERATIVE DIAGNOSIS: A large solitary common bile duct stone removed and stented. DESCRIPTION OF PROCEDURE: After informed consent and adequate intravenous sedation, the scope was introduced in the esophagus, stomach, and duodenum. The ampulla appears normal. Cholangiogram did reveal a large common bile duct stone. A generous sphincterotomy was done. The stone was retrieved with basket. The bile duct was lavaged and a 10-Vietnamese, 5 cm stent placed. The scope was withdrawn. The patient tolerated the procedure well without any immediate complications. I will see her in the office in a few weeks and remove the stent as an outpatient. cc: Bobbi Bailey MD
--- NOTE | 2019-08-14 12:37 | PROGRESS NOTE ---
DATE: 08/14/2019 SUBJECTIVE: The patient seems to be feeling better, she is breathing better, she is still complaining of some abdominal discomfort. Gastroenterology Department has evaluated this patient, and likely they will take this patient to the OR to do an ERCP. OBJECTIVE: Vital Signs: Temperature 97.4 degrees, pulse 88, respiratory rate 20, blood pressure 107/59, oxygen saturation 96 on 4 L of nasal cannula. HEENT: Head normocephalic, no trauma. PERRLA. Neck: Supple. No JVD. No masses. Central trachea. Chest: Clear to auscultation. Some crepitus at the bases. No rhonchi. Cardiovascular: Regular rate and rhythm. No murmurs. Abdomen: Soft. Some tenderness to palpation at the level of the right upper quadrant. Extremities: No edema, no clubbing, no cyanosis. Neurological examination: The patient is awake, alert. She is following commands. No deficits. LABORATORY: WBC 13.1, hemoglobin 12.5, hematocrit 40.0, platelet count 196. Sodium 131, potassium 4.9, chloride 93, bicarbonate 25. BUN 25, creatinine 1.3, glucose 150, calcium 9.3, phosphorus 4.1, magnesium 1.9. ASSESSMENT AND PLAN: 1. Sepsis on presentation secondary to multifocal pneumonia, Escherichia coli urinary tract infection, complicated with bacteremia. New blood cultures are negative. 2. Altered mental status secondary to global encephalopathy, probably due to the infectious process. 3. History of coronary artery disease. No chest pain at this moment. 4. Type 2 diabetes. Continue with the same management. 5. Cholelithiasis status post laparoscopic-assisted cholecystectomy. She is doing well. The white blood cell count today has been dropping. There is a filling defect in the cholangiogram, so probably this patient will have endoscopic retrograde cholangiopancreatography done by Gastroenterology Department. 6. Hypomagnesemia, resolved. cc: Von Fuchs MD
[2019-08-14] MEDS: DILAUDID ONE ×3 (13:02→13:20)
[2019-08-14] MEDS: ROCEPHIN 2 GM in NS 50 ML IV SCH (14:16)
--- NOTE | 2019-08-14 18:47 | PULMONOLOGY PROGRESS NOTE ---
DATE: 08/14/2019 SUBJECTIVE: The patient is awake and alert. She went for an ERCP today for choledocholithiasis. She currently is doing well. OBJECTIVE: Vital Signs: BP 122/52, heart rate 75, respiratory rate 16, oxygen saturation 99% on nasal cannula. HEENT: Pupils are equal and reactive. Oropharynx appears clear. neck: Neck is supple. pulmonary: Chest reveals occasional rhonchi which clear after coughing. Cardiac: S1, S2. abdomen: Abdomen is soft. Extremities: Extremities are without edema. LABORATORIES: Sodium 131, potassium 4.9, chloride 93, bicarbonate 25, BUN 25, creatinine 1.3. White blood count 13.1, hemoglobin 12.5, platelet count 196,000. STUDIES: Chest x-ray reveals slight increase in pleural effusions. IMPRESSION: An 83-year-old with: 1. Hypoxemic respiratory failure. 2. Pleural effusions. 3. Acute cholecystitis with choledocholithiasis. 4. Pneumonia. PLAN: 1. Continue current antibiotics. 2. Continue bronchial hygiene. 3. Single dose of Lasix later this evening. 4. Follow up chest x-ray tomorrow. cc: Steve House MD
[2019-08-14] MEDS: DUONEB (A & A) INH PRN (20:05)
[2019-08-14] MEDS ORDERED: LASIX IV ONE (21:00)
[2019-08-14] MEDS: ATIVAN PO PRN (21:44)
[2019-08-14] MEDS: PERIDEX MT SCH (21:44)
[2019-08-14] MEDS: HEPARIN SUBQ SCH (21:46)
[2019-08-15] MEDS: DUONEB (A & A) INH SCH ×4 (03:22→21:59)
[2019-08-15 06:16] LABS: HEMATOCRIT 39.3 % (37.0-47.0); IMM GRAN# 0.05 X1000 (0.0-0.04); IMM GRAN% 0.5 % (0.0-0.5); LYMPH% 4.1 % (20.5-51.1); MCH 30.4 PG (27-31); MCHC 30.5 g/dL (33-37); MCV 99.5 FL (81-99); MONO# 0.87 X1000 (0.11-0.59); MPV 11.9 FL (7.4-10.4); NEUT# 8.35 X1000 (1.4-6.5); NEUT% 86.4 % (42.2-75.2); PLT 247 X1000 (130-400); RBC 3.95 XMIL (4.2-5.4); RDW 14.1 % (11.5-14.5); WBC 9.67 X1000 (4.8-10.8)
[2019-08-15 06:29] LABS: MAGNESIUM 1.7 mg/dL (1.5-2.7); PHOSPHORUS 4.1 mg/dL (2.7-4.5)
[2019-08-15 06:32] LABS: ALB/GLOB RATIO 0.6; ALBUMIN 2.4 g/dL (3.5-5.0); CALCIUM 8.7 mg/dL (8.8-10.2); CREATININE 1.3 mg/dL (0.5-0.9); POTASSIUM 4.1 mmol/L (3.5-5.1); TOTAL BILIRUBIN 0.37 mg/dL (0.20-1.00); TOTAL PROTEIN 6.1 g/dL (6.3-8.3)
--- NOTE | 2019-08-15 06:50 | Diag Imaging Result Doc PS360 ---
EXAM: CHEST-PORTABLE 08/15/2019 HISTORY: abnormal exam TECHNIQUE: AP portable at 0524 COMMENT: There is cardiomegaly and increased pulmonary vascularity. There is a right pleural effusion and possibly a small effusion on the left. There is compressive atelectasis in the right lower lobe and middle lobe. There is some atelectasis or pneumonia in the lingula. There is hazy interstitial opacity consistent with pulmonary edema. Overall compared to 08/14/2019 there may be slightly more pleural fluid on the right but less on the left. IMPRESSION: Pleural effusions. Cardiomegaly and pulmonary edema. Atelectasis particularly in the right base. Electronically signed by Jairo Thomas 08/15/2019 6:48 AM
[2019-08-15] MEDS ORDERED: LASIX IV ONE (07:53)
[2019-08-15] MEDS: MUCOMYST 20% INH SCH ×2 (09:09→21:59)
--- NOTE | 2019-08-15 10:24 | PROGRESS NOTE ---
DATE: 08/15/2019 Ms. Anaid Butler is an 83-year-old white female status post laparoscopic cholecystectomy on 08/12/2019 [address] an [address]CP per Dr. Bailey on 08/14/2019. She remains hospitalized because of cardiomegaly and pulmonary edema per chest x-ray this morning. Her trocar sites are healing well. She has a stent in her common duct which will have to be removed per Dr. Bailey in 4 to 6 weeks. She is on a GI soft diet. cc: Cyndi Rg MD
[2019-08-15] MEDS: ASPIRIN PO SCH (10:33)
[2019-08-15] MEDS: MIRALAX PO SCH (10:34)
[2019-08-15] MEDS: PERIDEX MT SCH ×2 (10:34→22:33)
[2019-08-15] MEDS: HEPARIN SUBQ SCH ×2 (12:34→22:33)
[2019-08-15] MEDS: NORCO-5 PO PRN (12:35)
--- NOTE | 2019-08-15 13:10 | PROGRESS NOTE ---
DATE: 08/15/2019 SUBJECTIVE: The patient seems to be feeling a little bit better. She had a laparoscopic cholecystectomy done recently and yesterday she had an ERCP done with seen a sphincterectomy and stone extraction and stent placement. She has been placed on a GI soft diet. She still has some pulmonary edema and I will give her a dose of Lasix this morning. She received a dose of Lasix yesterday night. OBJECTIVE: Vital Signs: Temperature 97.6 degrees, pulse 88, respiratory rate 16, blood pressure 124/58, oxygen saturation 97% on 2 L of nasal cannula. HEENT: Head normocephalic. No trauma. PERRLA. Neck: Supple. No JVD. No masses. Central trachea. Chest: Clear to auscultation. Some crepitus at the bases. Cardiovascular: RRR. Abdomen: Soft. Generalized tenderness to palpation. She has multiple wounds, and they look clean, dry, and intact. No signs of bleeding. Extremities: No edema. No clubbing. No cyanosis. Neurological: The patient is awake, alert. She is oriented. She is following commands. LABORATORY: WBC 9.6, hemoglobin 12.0, hematocrit 39.3, platelets 247,000. Sodium 134, potassium 4.1, chloride 93, bicarbonate 28, BUN 26, creatinine 1.3, glucose 181, calcium 8.7, AST 14, ALT 13, alkaline phosphatase 236. ASSESSMENT AND PLAN: 1. Sepsis on presentation secondary to multifocal pneumonia, E. coli urinary tract infection, complicated with bacteremia. New blood cultures are negative. 2. Altered mental status secondary to global encephalopathy, probably due to the infectious process. 3. History of coronary artery disease. No chest pain at this moment. 4. Bacteremia as per #1. 5. Multifocal pneumonia as per #1. 6. Escherichia coli urinary tract infection. Continue with antibiotics. 7. Type 2 diabetes. Continue with same management. 8. Cholelithiasis status post laparoscopic assisted cholecystectomy, and also ERCP done yesterday with sphincterotomy, stone removal, and placement of a stent by Dr. Bailye. She will need to follow up with him as an outpatient in a few weeks, probably 4 to 6 weeks. 9. Hypomagnesemia resolved. 10. Fluid overload, pulmonary edema. Will go ahead and give her an extra dose of Lasix today. cc: Vno Fuchs MD MTDD
--- NOTE | 2019-08-15 14:12 | PULMONOLOGY PROGRESS NOTE ---
DATE: 08/15/2019 SUBJECTIVE: The patient is awake and alert. She has no appetite. She reports some lower extremity pain. OBJECTIVE: Vital Signs: The patient has been afebrile for the last 24 hours. Blood pressure 126/62, heart rate 95, respiratory rate 18, oxygen saturation 97%. HEENT: Pupils are equal and reactive. Oropharynx appears clear. Neck: Neck is supple. Chest: Reveals diminished breath sounds, right base. Cardiac exam: S1, S2. Abdomen: Mildly distended with tympany, but nontender. Extremities: Without edema. LABORATORIES: White blood count 9.67, hemoglobin 12.0 platelet count 247,000. Sodium 134, potassium 4.1, chloride 93, bicarbonate 28. BUN 26, creatinine 1.3. IMPRESSION: An 83-year-old with: 1. Hypoxemic respiratory failure. 2. Pleural effusions. 3. Acute cholecystitis requiring cholecystectomy. The patient also had choledocholithiasis requiring endoscopic retrograde cholangiopancreatography. 4. Pneumonia. PLAN: 1. Continue antibiotics. 2. Continue bronchial hygiene. 3. Followup chest x-ray and labs tomorrow. cc: Steve House MD
[2019-08-15] MEDS: ROCEPHIN 2 GM in NS 50 ML IV SCH (16:23)
[2019-08-15] MEDS: PEPCID IV SCH (16:24)
[2019-08-15] MEDS: ATIVAN PO PRN (16:24)
[2019-08-15] MEDS: ZOFRAN IV PRN (16:24)
[2019-08-15] MEDS: DILAUDID IV PRN ×2 (16:25→22:32)
[2019-08-15] MEDS: MUCINEX PO PRN (16:25)
[2019-08-15] MEDS: SODIUM CHLORIDE 0.9% INJ SCH (16:26)
--- NOTE | 2019-08-15 16:50 | GASTROENTEROLOGY PROGRESS NOTE ---
DATE: 08/15/2019 GASTROENTEROLOGY FOLLOWUP: HOSPITAL PHYSICIAN: Dr. Johnson. PRIMARY CARE DOCTOR: Dr. Mauricio Tony. SUBJECTIVE: The patient resting in bed. She denies any fevers, rigors, or chills. She had moved her bowels today. She is beginning to eat as well. She denies any nausea or vomiting. OBJECTIVE: vital signs: Temperature 97.6 degrees, pulse of 88, respiratory rate 16, blood pressure 124/58 saturating 97% on nasal cannula. Body weight of 180 pounds. BMI 29.1 kg. General Appearance: Moderately built, moderately nourished, lying in bed, in no acute distress. heent: No pallor. No icterus. Pupils equal and reactive to the light and accommodation. Neck: Supple. Abdomen: Soft. Mild discomfort in the epigastric right upper quadrant. No rebound or guarding. Extremities: No cyanosis or clubbing. Neurologic: Alert, awake, and oriented to time, place, and person. LABORATORIES: Hemoglobin and hematocrit are 12 and 39.3, white count of 9.67, platelet count of 247,000. Sodium 135, potassium 4.1, chloride 93, bicarb 20, anion gap 13, BUN of 26, creatinine 1.3, glucose of 181, calcium is 8.7, phosphorus 4.1, magnesium 1.7, total bilirubin is 0.37, AST 14, ALT 13, alkaline phosphatase 236, total protein 6.1, albumin of 2.4. ProBNP is more than 35,000. Coronavirus PCR was negative done on 08/08/2019. Her blood culture was negative 48 hours from 08/10/2019. Her urine culture showed E coli, and blood culture on admission showed E coli which was pansensitive. IMPRESSION AND PLAN: 1. Sepsis on presentation secondary to multifocal pneumonia and Escherichia coli urinary tract infection complicated with bacteremia and the new blood cultures are negative. 2. Cholelithiasis status post laparoscopic-assisted cholecystectomy. An intraoperative cholangiogram showing evidence of common bile duct stone. She had an ERCP with sphincterotomy and stone removal and placement of stent by Dr. Bailey yesterday on 08/14/2019. Her liver enzymes are normal. She will need to follow up with Dr. Bailey in 4 to 6 weeks for ERCP with stent removal. I informed the patient about it. 3. Altered mental status secondary to global encephalopathy. It is improving. 4. History of coronary artery disease. Aware. 5. Type 2 diabetes. Being managed by primary care team. She is on sliding scale insulin. 6. She is on deep venous thrombosis prophylaxis with heparin 5000 units q. 12 hours. She is on MiraLAX once daily for bowel regimen, and she will be on gastrointestinal prophylaxis with Pepcid 20 mg IV q. 12 hours. She is on nebulizer treatment per the Pulmonary Team. She had a history of recent hypoxic respiratory failure, pleural effusion, and pneumonia that is improving being followed by Dr. House. She had elevated liver enzymes in the form of elevated alkaline phosphatase and normal bilirubin, but this is trending down. DISPOSITION: The patient will follow up with Dr. Bailey in 4 to 6 weeks after discharge for planning ERCP stent removal. We will sign off at this time. The above plans discussed with the patient and all questions answered. Please call with any further questions. cc: MD Dr. Mauricio Beach MD [facility]
[2019-08-16] MEDS: PEPCID IV SCH ×2 (03:01→21:48)
[2019-08-16] MEDS: DUONEB (A & A) INH SCH ×4 (03:35→22:00)
[2019-08-16] MEDS: DILAUDID IV PRN ×5 (06:17→21:42)
[2019-08-16 06:27] LABS: ALB/GLOB RATIO 0.8; ALBUMIN 2.6 g/dL (3.5-5.0); CALCIUM 8.5 mg/dL (8.8-10.2); CREATININE 1.4 mg/dL (0.5-0.9); POTASSIUM 4.8 mmol/L (3.5-5.1); TOTAL BILIRUBIN 0.35 mg/dL (0.20-1.00); TOTAL PROTEIN 5.8 g/dL (6.3-8.3)
--- NOTE | 2019-08-16 07:06 | Diag Imaging Result Doc PS360 ---
EXAM: CHEST-PORTABLE 08/16/2019 HISTORY: abnormal exam TECHNIQUE: AP portable at 0639 COMMENT: There is a fairly large right pleural effusion with compressive atelectasis in the right lower and middle lobes. There is some opacification of the lingula and left lower lobe. There is apparent interstitial pulmonary edema and cardiomegaly. Compared to 08/15/2019 this has not changed appreciably. IMPRESSION: Pulmonary edema and atelectasis with right pleural effusion. Electronically signed by Jairo Thomas 08/16/2019 7:03 AM
--- NOTE | 2019-08-16 07:08 | Diag Imaging Result Doc PS360 ---
EXAM: KUB ABDOMEN 08/16/2019 HISTORY: distention TECHNIQUE: KUB COMMENT: There is a biliary stent and surgical clips in the right upper quadrant. There is stool and gas throughout much of the colon without evidence of significant dilatation. The stomach and small bowel are not distended. There is no evidence of organomegaly or mass. There are bilateral bipolar hip prostheses. There is evidence of previous fractures of the pubic rami. There is generalized osteoporosis. There has been posterior fusion and laminectomy at L4-5. IMPRESSION: Mild constipation. Electronically signed by Jairo Thomas 08/16/2019 7:06 AM
[2019-08-16] MEDS ORDERED: LASIX IV ONE (07:54)
[2019-08-16] MEDS ORDERED: ZOFRAN IV PRN (07:57)
--- NOTE | 2019-08-16 09:37 | PROGRESS NOTE ---
DATE: 08/16/2019 Ms. Anaid Butler remains hospitalized status post laparoscopic cholecystectomy and ERCP, mostly because of her pulmonary function. A chest x-ray today still suggests pulmonary edema and atelectasis with right pleural effusion. She seems to be resting comfortably this morning, her trocar sites are intact, and she is on a GI soft diet. cc: Cyndi Rg MD
[2019-08-16] MEDS: HEPARIN SUBQ SCH ×2 (10:07→21:29)
[2019-08-16] MEDS: ASPIRIN PO SCH (10:07)
[2019-08-16] MEDS: PERIDEX MT SCH ×2 (10:07→21:29)
[2019-08-16] MEDS: MIRALAX PO SCH ×2 (10:07→23:38)
[2019-08-16] MEDS: LEVAQUIN 500 MG/D5W 500 MG/100 ML IVPB IV SCH (10:08)
[2019-08-16] MEDS: MUCOMYST 20% INH SCH ×2 (10:54→22:00)
[2019-08-16] MEDS: ATIVAN PO PRN (11:16)
[2019-08-16] MEDS: MUCINEX PO PRN (14:28)
--- NOTE | 2019-08-16 15:26 | PROGRESS NOTE ---
DATE: 08/16/2019 SUBJECTIVE: The patient seems to be feeling better. She is complaining of right upper quadrant discomfort but she had a cholecystectomy done recently. She is not having any problem breathing at this moment. Probably, she will be discharged tomorrow to a rehab center. We have a blood culture that showed Escherichia coli on 08/08/2019 and the repeated blood culture on 08/10/2019 has been negative for more than 5 days. I have switched the antibiotics to levofloxacin since the E. coli is sensitive to this antibiotic and will be taken by mouth. OBJECTIVE: Vital Signs: Temperature 98.6 degrees, pulse 98, respiratory rate 17, blood pressure 115/57, oxygen saturation 100% on 2 L of nasal cannula. HEENT: Head normocephalic. No trauma. PERRLA. Neck: Supple. No JVD. No masses. Central trachea. Chest: Clear to auscultation. Some crepitus at the bases. Cardiovascular: RRR. Abdomen: Soft. Tenderness, mostly at the level of the right upper quadrant. Her incisions look clean, dry, and intact except for a little bit of serosanguineous discharge at the level of the umbilical area. No signs of infection. Extremities: No edema, no clubbing, no cyanosis. Neurological Examination: The patient is awake and alert. She is oriented. She is following commands. She has generalized weakness. Laboratory: Sodium 132, potassium 4.8, chloride 93, bicarbonate 29, BUN 26, creatinine 1.4, glucose 120, calcium 8.5. AST 13, ALT 11, alkaline phosphatase 199. ASSESSMENT AND PLAN: 1. Sepsis on presentation secondary to multifocal pneumonia, Escherichia coli urinary tract infection complicated with bacteremia. New blood cultures are negative. I have switched the antibiotics to levofloxacin so she can be discharged on oral medications. This Escherichia coli is sensitive to this treatment. 2. Altered mental status secondary to global encephalopathy, probably due to the infectious process, resolved. 3. History of coronary artery disease. No chest pain at this moment. 4. Bacteremia, as per #1. 5. Multifocal pneumonia, as per #1. 6. Escherichia coli urinary tract infection. Continue with antibiotics, has been switched to levofloxacin. 7. Type 2 diabetes. Continue with the same management. 8. Cholelithiasis, status post laparoscopic-assisted cholecystectomy. Endoscopic retrograde cholangiopancreatography also done a couple days ago with sphincterectomy, stone removal, and placement of a stent by Dr. Bailey. She will need to follow up with him as an outpatient in a few weeks, probably 4 to 6 weeks, to remove the stent. 9. Hypomagnesemia, resolved. 10. Fluid overload with pulmonary edema. I will give her an extra dose of Lasix today. cc: Von Fuchs MD
[2019-08-16] MEDS: NORCO-5 PO PRN (16:15)
--- NOTE | 2019-08-16 17:11 | GASTROENTEROLOGY PROGRESS NOTE ---
DATE: 08/16/2019 PRIMARY CARE DOCTOR: Dr. Mauricio Tony. SUBJECTIVE: Patient resting in bed. She is feeling better. She also complains of mild discomfort in the right upper abdomen. She has had a recent ERCP for CBD stones. She had a recent cholecystectomy per Dr. Barrera. She denies any fevers, rigors, or chills. She denies any nausea or vomiting. She was able to eat part of her meal this morning. She had her last bowel movement this morning. OBJECTIVE: Vital signs: Temperature of 97.4 degrees, pulse rate of 92, respiratory rate of 16, blood pressure 117/66, saturating 100% on nasal cannula. Body weight of 180 pounds, BMI 29.1 kg/m2. General: Moderately built, moderately nourished, lying in bed, in no acute distress. HEENT: No pallor. No icterus. Nasal cannula in place. Neck: Supple. Abdomen: Discomfort in the right upper quadrant. No rebound or guarding. Extremities: No cyanosis, clubbing. Neurologic: Alert, awake, oriented x3. LABS: The labs from today show a sodium of 132, potassium 4.8, chloride 93, bicarb 29, anion gap 10, BUN of 26, creatinine 1.4, glucose of 120, calcium is 8.5, total bilirubin is 0.35, AST 13, ALT 11, alkaline phosphatase 199, total protein 5.8, albumin of 2.6. Her blood cultures from last set from 08/10/2019 are negative. Prior to that, she had a possible culture showing E. coli. IMPRESSION AND PLAN: 1. Sepsis on presentation secondary to multifocal pneumonia and Escherichia coli urinary tract infection complicated with bacteremia. She was switched on Levaquin per the primary care team today. 2. Altered mental status secondary to global encephalopathy which has resolved. 3. History of coronary artery disease. 4. Multifocal pneumonia. 5. Bacteremia, now resolved with negative blood cultures. 6. Escherichia coli urinary tract infection. On antibiotics. 7. Type 2 diabetes. 8. Cholelithiasis, status post cholecystectomy with Dr. Barrera and intraoperative cholangiogram showing evidence of common bile duct stone, status post endoscopic retrograde cholangiopancreatography by Dr. Bailey. She will need to follow up with Dr. Bailey in 4 weeks for scheduling the ERCP with stent removal. This was discussed in detail with the patient. 9. Electrolyte imbalance. Being followed by primary care team. 10. Pleural effusion and fluid overload. Being managed by the primary care team. 11. Elevated liver enzymes, elevated alkaline phosphatase, likely secondary to recent endoscopic retrograde cholangiopancreatography and stenting. The above plan was discussed with the patient and the nursing staff and all questions answered. Please call if you have any further questions. cc: MD Mauricio Beach MD
--- NOTE | 2019-08-16 20:18 | Diag Imaging Result Doc PS360 ---
EXAM: LAT DECUBITUS CHEST VIEW-RIGHT 08/16/2019 HISTORY: evaluation of effusion TECHNIQUE: Right lateral decubitus chest. COMMENT: There is a pleural effusion on the right which does layer to some extent dependently. There is opacification of the right middle and lower lobes and the medial portion of the left lower lobe which may be due to atelectasis or pneumonia. IMPRESSION: Right pleural effusion. Electronically signed by Jairo Thomas 08/16/2019 8:16 PM
--- NOTE | 2019-08-16 23:55 | PULMONOLOGY PROGRESS NOTE ---
DATE: 08/16/2019 SUBJECTIVE: The patient is awake and alert. She has some postoperative right upper quadrant discomfort. She denies shortness of breath. OBJECTIVE: Vital Signs: The patient has been afebrile for the last 24 hours. Blood pressure 119/55, heart rate 81, respiratory rate 16, oxygen saturation 100%. HEENT: Pupils are equal and reactive. Oropharynx appears clear. Neck: Supple. Chest: Reveals decreased breath sounds right base. Cardiac: S1-S2. Abdomen: Soft. Extremities: Reveal trace edema. LABORATORIES: KUB reveals evidence of a biliary stent. Mild constipation noted. Chest x-ray reveals probable large effusion on the right without change compared to 08/15/2019. Sodium 132, potassium 4.8, chloride 93, bicarbonate 29, BUN 26, creatinine 1.4, glucose 120. White blood count not obtained today. IMPRESSION: An 83-year-old with: 1. Hypoxemic respiratory failure. 2. Pleural effusion. 3. Pneumonia. 4. Status post cholecystitis requiring cholecystectomy and ERCP for choledocholithiasis. PLAN: 1. Continue current antibiotic regimen. 2. Continue bronchial hygiene. 3. We will obtain a decubitus x-ray today and consider thoracentesis or observation pending clinical course. cc: Steve House MD
[2019-08-17] MEDS: DUONEB (A & A) INH SCH ×4 (03:29→22:29)
[2019-08-17] MEDS: DILAUDID IV PRN (06:14)
--- NOTE | 2019-08-17 06:57 | Diag Imaging Result Doc PS360 ---
EXAM: CHEST-PORTABLE HISTORY: dyspnea TECHNIQUE: Single view COMPARISON: 08/16/2019 FINDINGS: Poor inspiratory effort. There is a small to moderate-sized right pleural effusion with basilar atelectasis and possibly underlying infiltrates. Mild vascular distention persists with cardiomegaly. Trace left pleural fluid. IMPRESSION: No interval improvement Electronically signed by Moose Olivo 08/17/2019 6:55 AM
[2019-08-17 07:13] LABS: BASO# 0.01 X1000 (0.0-0.2); BASO% 0.1 % (0.0-0.8); EOS# 0.24 X1000 (0.0-0.7); EOS% 2.6 % (0.0-10.0); HEMATOCRIT 34.4 % (37.0-47.0); HEMOGLOBIN 10.4 g/dL (12.0-16.0); IMM GRAN# 0.02 X1000 (0.0-0.04); IMM GRAN% 0.2 % (0.0-0.5); LYMPH# 0.61 X1000 (1.2-3.4); LYMPH% 6.6 % (20.5-51.1); MCH 30.5 PG (27-31); MCHC 30.2 g/dL (33-37); MCV 100.9 FL (81-99); MONO# 0.77 X1000 (0.11-0.59); MONO% 8.4 % (1.7-9.3); MPV 11.7 FL (7.4-10.4); NEUT# 7.56 X1000 (1.4-6.5); NEUT% 82.1 % (42.2-75.2); PLT 221 X1000 (130-400); RBC 3.41 XMIL (4.2-5.4); RDW 14.2 % (11.5-14.5); WBC 9.21 X1000 (4.8-10.8)
[2019-08-17 07:36] LABS: CALCIUM 8.6 mg/dL (8.8-10.2); CREATININE 1.3 mg/dL (0.5-0.9); MAGNESIUM 1.5 mg/dL (1.5-2.7); POTASSIUM 4.4 mmol/L (3.5-5.1)
[2019-08-17] MEDS: ATIVAN PO PRN ×2 (08:13→21:35)
[2019-08-17] MEDS: ASPIRIN PO SCH (08:13)
[2019-08-17] MEDS: HEPARIN SUBQ SCH ×3 (08:13→21:37)
[2019-08-17] MEDS: PERIDEX MT SCH ×2 (08:13→21:36)
[2019-08-17] MEDS: LEVAQUIN 500 MG/D5W 500 MG/100 ML IVPB IV SCH (08:13)
[2019-08-17] MEDS: MIRALAX PO SCH ×3 (08:13→21:36)
[2019-08-17] MEDS: PEPCID IV SCH ×2 (08:14→21:37)
[2019-08-17] MEDS: SODIUM CHLORIDE 0.9% INJ SCH ×2 (08:15→21:36)
--- NOTE | 2019-08-17 09:33 | GENERAL SURGERY PROGRESS NOTE ---
DATE: 08/17/2019 SUBJECTIVE: She is afebrile with stable hemodynamics. She is not taking much by mouth. She says she gets nauseated. Apparently, Zofran helps. White count is 9200, hemoglobin 10.4. BUN and creatinine are stable. Her wounds look good. I have no new recommendations. cc: Julius Barrera MD
[2019-08-17] MEDS: MUCOMYST 20% INH SCH ×2 (09:57→22:28)
--- NOTE | 2019-08-17 10:38 | GASTROENTEROLOGY PROGRESS NOTE ---
DATE: 08/17/2019 SUBJECTIVE: Ms. Butler is an 83-year-old, female resting in bed. The patient is still complaining of nausea and vomiting. She did have a recent ERCP done on 08/14/2019 for the CBD stones. She also recently had a cholecystectomy done. She was able to partly eat her breakfast. OBJECTIVE: Vital Signs: Temperature 98.2 degrees, pulse 96, respirations 18, blood pressure 109/54, oxygen saturation 99% on 2 L nasal cannula. The patient's weight's is 180 pounds. BMI is 29.1 kg/m2. General: She is alert, oriented x3, and in no acute distress. HEENT: Pale conjunctivae. No icterus. PERRL. Neck: Supple. Lungs: Clear to auscultation. Cardiovascular: Patient is tachycardic. Abdomen: Mildly tender in the right upper quadrant. Extremities: No clubbing, no cyanosis, no edema. Pedal pulses 2+ present bilaterally. Neurologic: Alert and oriented x3. Labs: WBCs are 9.21, RBCs 3.41, hemoglobin is 10.4, hematocrit is 34.4, platelet count is 221,000. Sodium 134, potassium 4.4, chloride 94, carbon dioxide 30, anion gap 10, BUN 25, creatinine is 1.3, glucose 134, calcium 8.6, phosphorus 3.0, magnesium 1.5. Total bilirubin 0.35, AST 13, ALT 11, alkaline phosphatase 199, albumin is 2.6. Imaging: Chest x-ray today has shown no interval improvement. IMPRESSION AND PLAN: CBD stones s/p ERCP Nausea and vomiting Pneumonia Pleural effusion Respiratory failure S/p cholecystectomy Elevated LFT's- Elevated Alkaline Phosphatase Anemia PLAN: Ms. Butler is an 83-year-old, female with recent cholecystectomy and a recent ERCP with stent placement. The patient is still complaining of nausea and vomiting after she eats certain food. She is currently on antiemetic, Zofran. The patient is also receiving antibiotic, Levaquin for her pneumonia. She is on PPIs twice a day. For her bowel regimen she is on MiraLAX p.o. twice a day. Patient will need to f/u with Dr. Bailey in 4 weeks after discharge to schedule for removal of the stent. We will continue to monitor the patient and follow the plan of care per PCP. Continue to watch blood counts for now. This plan was discussed with Dr. Simon. Please call us for any further questions or concerns. Dictated by SHEREE Mcbride for Gunnar Simon MD cc: Gunnar Simon MD I have seen and examined the patient myself and I agree with the above plan of care. Please call us with any questions or concerns. AMANDAD
[2019-08-17 10:42] LABS: INR 1.15; PROTIME 14.9 Seconds (11.0-16.0)
[2019-08-17 10:43] LABS: PTT 38.2 Seconds (22.3-41.8)
[2019-08-17] MEDS: NORCO-5 PO PRN (12:21)
--- NOTE | 2019-08-17 12:59 | Diag Imaging Result Doc PS360 ---
US CHEST W/O MEDIASTINUM(LTD) - 08/17/2019 INDICATION: Right pleural effussion TECHNIQUE: COMPARISON: Previous chest x-rays FINDINGS: There is significant consolidation of the right lower lobe. There is a small right pleural effusion. The largest pocket measures 8.7 x 2 cm. This is too small to drain. IMPRESSION: Small right pleural effusion. Electronically signed by Mark Barnett 08/17/2019 12:56 PM
[2019-08-17] MEDS: COREG PO SCH ×2 (14:21→21:37)
[2019-08-17] MEDS: NORCO-7.5 PO PRN ×2 (14:21→19:19)
--- NOTE | 2019-08-17 14:23 | CARDIOLOGY CONSULTATION ---
DATE: 08/17/2019 REASON FOR CONSULTATION: The patient has known coronary artery disease. Cardiology was consulted for heart failure. HISTORY OF PRESENT ILLNESS: Ultrasound of her chest revealed localized pleural effusion. Thoracentesis not found to be beneficial. The patient is an 83-year-old lady with history of diastolic heart failure, hypertension, hyperlipidemia, and diabetes who came to the emergency room and was admitted on 08/09/2019 with lethargy and cough of one week duration. Patient was brought by EMS and she at that time was noted to have significant abdominal discomfort and altered mental status. She was given naloxone and flumazenil. Patient became more responsive and she was tested for COVID, which was negative. She subsequently had a workup. CT scan revealed multifocal pneumonia and possible cholecystitis and she underwent ERCP and stent placement and sphincterotomy and subsequently also underwent laparoscopic cholecystectomy. In the interim, she had altered mental status and she has been gradually improving. Today, she does not complain of chest pain. She complains of abdominal discomfort. However, she said she feels better. Denies orthopnea or worsening shortness of breath or fevers. PAST MEDICAL HISTORY: 1. Coronary artery disease, myocardial infarction. Last cardiac catheterization 09/24/2014. Had a drug-eluting stent to the mid left anterior descending artery and mid ramus in 2014. Recent stress test in 2019 was unremarkable. Echocardiogram revealed preserved left ventricular systolic function. 2. History of heart failure, diastolic. 3. History of pulmonary embolism. 4. Pneumonia in 2016. 5. Anticoagulation therapy. 6. Hypertension. 7. Hyperlipidemia. 8. Diabetes. 9. Chronic renal insufficiency. 10. Multiple back surgeries. 11. Fracture of intracapsular section of her neck of femur closed in 2014. ALLERGIES: She is allergic to latex, iodine, and sulfonamides. HOME MEDICATIONS: Isosorbide mononitrate 30, atorvastatin 40, aspirin 8a, glipizide 5 Coreg, ergocalciferol, Cardizem, Lasix 40. Her current medications include inhalers on a p.r.n. basis. Levaquin. Heparin for DVT prophylaxis. SOCIAL HISTORY: She does not smoke or drink alcohol. FAMILY HISTORY: Coronary artery disease in her father. PHYSICAL EXAMINATION: Vital Signs: Blood pressure was 127/63. Heart: First and second heart sounds were heard. There was no S3 gallop. Respiratory: A few scattered wheezes on the left side. Abdomen: Soft. Bowel sounds heard. Tender in the epigastric/hypochondriac region. Central Nervous System: Alert, was moving all four extremities. Extremities: No edema. LABORATORY EXAMINATION: Today, sodium 134 potassium 4.4, BUN 25, creatinine 1.3. Hematology, WBC down from 32.6 when she was admitted to 9.21, hemoglobin 10.4, hematocrit 34, platelet count of 221,000. IMAGING: Chest x-ray with trace of pleural fluid. Chest ultrasound with small right pleural effusion; largest pocket 8.7 x 2 cm, too small to drain. ASSESSMENT AND PLAN: Ms Anaid Butler is an 83-year-old lady with history of hypertension, coronary artery disease, renal insufficiency, diabetes, and stent placement in the past. She is admitted and had the following problems 1. Multilobar pneumonia with sepsis. 2. Escherichia coli urinary tract infection complicated with bacteremia. She is undergoing treatment for the same. 3. She has had cholelithiasis, status post laparoscopic cholecystectomy and ERCP with cholangiopancreatography and sphincterotomy, stone removed and stent placed. 4. Fluid overload. 5. From a cardiac standpoint she is currently stable. I have not made any changes. Do not have new recommendations. However, would recommend restarting her home medications off enteric- coated aspirin, atorvastatin, and beta blockers. Thank you for the consult. We will follow hospital course. cc: Heriberto Henderson MD
[2019-08-17] MEDS: MUCINEX PO PRN (14:24)
--- NOTE | 2019-08-17 15:04 | PROGRESS NOTE ---
DATE: 08/17/2019 SUBJECTIVE: The patient seems to be feeling better. We tried to do a thoracentesis today but the amount of fluid is not that much, so I will continue with diuretics instead. Cardiology department also evaluated this patient. They will go ahead and readjust her medications or at least put her back on her home medications. Likely, this patient will be discharged in the morning. Let us see how she does today. I will repeat an x-ray in the morning. OBJECTIVE: Vital Signs: Temperature 98.6 degrees, pulse 94, respiratory rate 19, blood pressure 127/63, oxygen saturation 95% on 2 L of nasal cannula. HEENT: Head normocephalic. No trauma. PERRLA. Neck: Supple. No JVD. No masses. Central trachea. Chest: Clear to auscultation. Some crepitus at the bases. Cardiovascular: RRR. Abdomen: Soft. Tenderness to palpation, mostly at the level of the right upper quadrant. Her wound looks fine. A little bit of serosanguineous discharge at the level of the umbilical area. No signs of infection or active bleeding though. Extremities: No edema, no clubbing, no cyanosis. Neurological Examination: The patient is awake and alert. She is oriented. She is following commands. She does have generalized weakness. Laboratory: WBC 9.2, hemoglobin 10.4, hematocrit 34.4, platelets 221,000. Sodium 134, potassium 4.4, chloride 94, bicarbonate 30, BUN 25, creatinine 1.3, glucose 134, calcium 8.6, magnesium 1.5. ASSESSMENT AND PLAN: 1. Sepsis on presentation secondary to multifocal pneumonia, Escherichia coli urinary tract infection complicated with bacteremia. New blood cultures are negative. She is still on levofloxacin and she can be discharged on oral medications. This Escherichia coli is sensitive to this treatment. 2. Altered mental status secondary to global encephalopathy and likely due to infectious encephalopathy, resolved. 3. History of coronary artery disease. No chest pain at this moment. Cardiology department put this patient back on her home medications. 4. Bacteremia, as per #1. 5. Multifocal pneumonia, as per #1. 6. Escherichia coli urinary tract infection. Continue antibiotics. 7. Type 2 diabetes. Continue with the same management. 8. Cholelithiasis, status post laparoscopic-assisted cholecystectomy, endoscopic retrograde cholangiopancreatography done a few days ago with a sphincterectomy, stone removal, and placement of a stent by Dr. Bailey. She will need to follow up with him as an outpatient in a few weeks, probably 4 to 6 weeks, to remove the stent. 9. Hypomagnesemia, resolved. 10. Fluid overload with pulmonary edema. We tried to get a thoracentesis done but the amount of fluids is not that much per radiology department. We will go ahead and continue with Lasix as needed. cc: Von Fuchs MD
--- NOTE | 2019-08-17 15:47 | PROVIDER PROGRESS NOTE ---
Progress Note Dr. Hathaway Progress Note/Pulmonary and or critical care Subjective: The patient is lying in bed on room air with SaO2 in low 90s. RN at the bedside is putting her on NC 2L. She just came back from thoracentesis and is having her lunch at this time. She is complaining of SOB and productive cough with greenish yellow phlegm which has been slowly improving. She also has pleurisy secondary to cough, but no hemoptysis. She still has nausea which has been controlled by Zofran. Objective: Vital Signs: T 98.2 (no fever in last 24 hours), AZ 89, RR 21, BP 109/54 and SaO2 100% on room air. Physical Examination: General: Lying in bed with no acute distress noted. Patient has frequent cough with greenish yellow phlegm at times during my encounter. HEENT: Normocephalic. Atraumatic. Trachea midline. Mucosa pink and moist. Chest: Even and unlabored. Symmetrical excursion. Auscultation reveals diminished breathing sounds in the right base with crepitus noted. CVS: S1 and S2 appreciated. Abdomen: Soft. Obese. Bowel sounds present in all 4 quadrants. Extremities: BLE trace edema. No cyanosis. No clubbing. Neuro: Alert and oriented x 3. Answer simple questions. Follow simple commands. Labs and Radiology: Laboratory Results 08/16/19 08/16/19 08/17/19 16:16 20:42 06:02 WBC RBC Hgb Hct MCV MCH MCHC RDW Std Deviation Plt Count MPV Immature Gran % (Auto) Neut % (Auto) Lymph % (Auto) Stanton % (Auto) Eos % (Auto) Baso % (Auto) Immature Gran # (Auto) Neut # (Auto) Lymph # (Auto) Stanton # (Auto) Eos # (Auto) Baso # (Auto) PT INR PTT (Actin FS) Sodium 134 L Potassium 4.4 Chloride 94 L Carbon Dioxide 30 Anion Gap 10 BUN 25 H Creatinine 1.3 H Estimated GFR/1.73 m2 39 BUN/Creatinine Ratio 19 Glucose 134 H POC Glucose 159 H 142 H Calculated Osmolality 275 Calcium 8.6 L Phosphorus 3.0 Magnesium 1.5 08/17/19 08/17/19 08/17/19 06:02 06:40 10:19 WBC 9.21 RBC 3.41 L Hgb 10.4 L Hct 34.4 L MCV 100.9 H MCH 30.5 MCHC 30.2 L RDW Std Deviation 14.2 Plt Count 221 MPV 11.7 H Immature Gran % (Auto) 0.2 Neut % (Auto) 82.1 H Lymph % (Auto) 6.6 L Stanton % (Auto) 8.4 Eos % (Auto) 2.6 Baso % (Auto) 0.1 Immature Gran # (Auto) 0.02 Neut # (Auto) 7.56 H Lymph # (Auto) 0.61 L Stanton # (Auto) 0.77 H Eos # (Auto) 0.24 Baso # (Auto) 0.01 PT 14.9 INR 1.15 PTT (Actin FS) 38.2 Sodium Potassium Chloride Carbon Dioxide Anion Gap BUN Creatinine Estimated GFR/1.73 m2 BUN/Creatinine Ratio Glucose POC Glucose 136 H Calculated Osmolality Calcium Phosphorus Magnesium 08/17/19 08/17/19 12:13 15:12 WBC RBC Hgb Hct MCV MCH MCHC RDW Std Deviation Plt Count MPV Immature Gran % (Auto) Neut % (Auto) Lymph % (Auto) Stanton % (Auto) Eos % (Auto) Baso % (Auto) Immature Gran # (Auto) Neut # (Auto) Lymph # (Auto) Stanton # (Auto) Eos # (Auto) Baso # (Auto) PT INR PTT (Actin FS) Sodium Potassium Chloride Carbon Dioxide Anion Gap BUN Creatinine Estimated GFR/1.73 m2 BUN/Creatinine Ratio Glucose POC Glucose 95 125 H Calculated Osmolality Calcium Phosphorus Magnesium Assessment: Hypoxemic respiratory failure. Resolved. Pneumonia, multifocal with right pleural effusion. COVID-19 is negative. Sputum culture on 08/10/19 shows no growth. CXR this morning shows no interval improvement with poor inspiratory effort, a small to moderate-sized right pleural effusion with basilar atelectasis and possibly underlying infiltrates, mild vascular distention persistent with cardiomegaly and trace left pleural fluid. Thoracentesis attempted this morning, but US chest without mediastinum shows the right pleural effusion is too small to drain. Urinary tract infection, positive for E. Coli. Bacteremia, positive for E. Coli. Improved. Repeat blood cultures on 08/10/19 have no growth after 5 days. Encephalopathy, multifactorial. Patient has UTI, pneumonia, and bacteremia. Improved. Acute cholecystitis with cholelithiasis s/p cholecystectomy per Dr. Barrera on 08/13/19 and endoscopic retrograde cholangiopancreatography per Dr. Bailey on 08/14/19. Chronic diastolic heart failure, [place]ens[place] [id number] on 08/14/19. Acute kidney injury. Protein calorie malnutrition. Plan: Continue supplemental oxygen as needed with weaning as tolerated. Continue bronchodilators and Mucomyst. Continue antibiotic Levaquin. Continue diuresis as tolerated. Continue DVT prophylaxis. For worsened pleural effusion, short run thoracentesis may help; long run, it is cardiac management optimization. Cardiology consulted.
[2019-08-17] MEDS: LIPITOR PO SCH (21:37)
[2019-08-18] MEDS: DUONEB (A & A) INH SCH ×4 (03:59→23:05)
[2019-08-18] MEDS: NORCO-7.5 PO PRN ×3 (04:56→20:11)
[2019-08-18 06:14] LABS: CALCIUM 8.5 mg/dL (8.8-10.2); CREATININE 1.2 mg/dL (0.5-0.9); POTASSIUM 4.5 mmol/L (3.5-5.1)
--- NOTE | 2019-08-18 07:01 | Diag Imaging Result Doc PS360 ---
CHEST-PORTABLE - 08/18/2019 INDICATION: dyspnea COMPARISON: 08/17/2019 FINDINGS: There is worsening cardiomegaly and pulmonary vascular congestion. There is worsening diffuse pulmonary edema. Stable small to moderate right basilar pleural effusion, along with stable dense consolidation of the right lower lobe. There is trace left pleural effusion. IMPRESSION: Worsening pulmonary vascular congestion and pulmonary edema. Electronically signed by Mark Barnett 08/18/2019 6:58 AM
[2019-08-18] MEDS ORDERED: LASIX IV ONE (07:41)
[2019-08-18] MEDS: PEPCID IV SCH ×2 (09:21→20:10)
[2019-08-18] MEDS: COREG PO SCH ×2 (09:21→20:11)
[2019-08-18] MEDS: MIRALAX PO SCH ×2 (09:21→20:12)
[2019-08-18] MEDS: PERIDEX MT SCH ×2 (09:21→20:11)
[2019-08-18] MEDS: LEVAQUIN 500 MG/D5W 500 MG/100 ML IVPB IV SCH (09:21)
[2019-08-18] MEDS: ASPIRIN PO SCH (09:21)
[2019-08-18] MEDS: MUCOMYST 20% INH SCH ×2 (09:32→23:05)
[2019-08-18] MEDS: HEPARIN SUBQ SCH ×2 (10:55→20:11)
[2019-08-18] MEDS: ATIVAN PO PRN (11:27)
--- NOTE | 2019-08-18 11:52 | GASTROENTEROLOGY PROGRESS NOTE ---
DATE: 08/18/2019 SUBJECTIVE: Ms. Butler is an 83-year-old, female resting in bed. The patient mentioned having mild abdominal tenderness but she has denied any nausea or vomiting. She is currently on a GI soft diet and was able to tolerate her diet fairly well. The patient has not had a bowel movement today but she had a couple of bowel movements yesterday. OBJECTIVE: Vital Signs: Temperature 97.8 degrees, pulse 78, respirations 20, blood pressure 125/52, oxygen saturation 95% on room air. The patient's weight is 180 pounds. BMI is 29.1 kg/m2. General: She is alert, oriented x3, and in no acute distress. HEENT: Pale conjunctivae. No icterus. PERRL. Neck: Supple. Lungs: Clear to auscultation. Cardiovascular: Regular rate and rhythm. Abdomen: Mildly tender in the upper quadrant. Soft. Active bowel sounds heard in all 4 quadrants. Extremities: No clubbing, no cyanosis, no edema. Pedal pulses 2+ present bilaterally. Neurologic: She is alert and oriented x3. Labs: The patient has no new hematology. Chemistries: Sodium 133, potassium 4.5, chloride 94, carbon dioxide is 27, anion gap 12, BUN 24, creatinine is 1.2, glucose 129, calcium is 8.5. Imaging: The patient's chest x-ray today showed worsening pulmonary vascular congestion and pulmonary edema. IMPRESSION: - Choledocholithiasis s/p ERCP and stent placement - Acute cholecystitis s/p surgery - Pneumonia - Hypoxic respiratory distress - Anemia, unspecified - CKD3 PLAN: Ms. Butler is an 83-year-old, female with a recent cholecystectomy and ERCP with stent placement. The patient's nausea and vomiting have been getting better. She is still complaining of some mild abdominal tenderness in the epigastric area. The patient is receiving antibiotic, Levaquin for her pneumonia. For her bowel regimen, she is on MiraLAX twice a day. We will continue her with PPIs twice a day. The patient needs to follow up with Dr. Bailey in 4 weeks once she is discharged and schedule for the removal of the stent. We will follow her as an outpatient. We will sign off for now. Please call us for any further questions or concerns. This plan was discussed with Dr. Fries. Dictated by SHEREE Mcbride for Mauricio Day MD Physician Attestation I have seen and examined the patient. I have discussed and reviewed the note by Laly BENTLEY and agree with findings and plan as documented. In brief, Ms. Butler is a 83 year old woman admitted with AMS found to have acute cholecystitis and multifocal pneumonia s/p lap nisha and ERCP with sphincterotomy and stent placement. LFTs have normalized. She will need repeat ERCP in 4-6 weeks for stent removal. Will sign off. Please call with questions. MTDD
--- NOTE | 2019-08-18 13:43 | PROGRESS NOTE ---
DATE: 08/18/2019 SUBJECTIVE: The patient seems to be feeling better. We tried to do a thoracentesis yesterday but she did not have too much fluid. I gave her some Lasix today because of worsening of pulmonary edema. Cardiology department also evaluated this patient and she has been placed back on some of her home medications. Pulmonary department on board. I will wait for final recommendations but she is still short of breath. OBJECTIVE: Vital Signs: Temperature 97.8 degrees, pulse 78, respiratory rate 20, blood pressure 125/52, oxygen saturation 95% on 2 L of nasal cannula. HEENT: Head normocephalic. No trauma. PERRLA. Neck: Supple. No JVD. No masses. Central trachea. Chest: Decreased breath sounds at the bases with some crackles. Cardiovascular: RRR. Abdomen: Soft. Tender to palpation at the level of the right upper quadrant mostly. Her wounds are fine. No signs of infection or active bleed. Extremities: No edema, no clubbing, no cyanosis. Neurological Examination: The patient is awake and alert. She is oriented. She is following commands. She does have generalized weakness. Laboratory: Sodium 133, potassium 4.5, chloride 94, bicarbonate 27, BUN 24, creatinine 1.2, glucose 129, calcium 8.5. ASSESSMENT AND PLAN: 1. Sepsis on presentation secondary to multifocal pneumonia, Escherichia coli urinary tract infection complicated with bacteremia. New blood cultures are negative. She is still on levofloxacin and she can be discharged on oral medication. The Escherichia coli is sensitive to this treatment. 2. Altered mental status secondary to global encephalopathy, likely due to infectious encephalopathy, resolved. 3. History of coronary artery disease. No chest pain at this moment. Cardiology department put this patient back on her home medications. 4. Bacteremia, as per #1. 5. Multifocal pneumonia, as per #1. 6. Fluid overload with pulmonary edema. We tried to do a thoracentesis yesterday but the amount of fluid inside her lungs was too small to do the procedure. I will go ahead and give her some Lasix today since the pleural effusion is worse. 7. Type 2 diabetes. Continue with the same management. 8. Escherichia coli urinary tract infection. Continue with antibiotics. 9. Cholelithiasis, status post laparoscopic-assisted cholecystectomy, endoscopic retrograde cholangiopancreatography also done a few days ago with sphincterectomy, stone removal, and placement of a stent by Dr. Bailey. She will need to follow up with him as an outpatient in a few weeks, probably 4 to 6 weeks, to remove the stent. 10. Hypomagnesemia, resolved. 11. She is still having shortness of breath and it looks like she has some worsening of the pulmonary edema. I will give her a dose of Lasix today and I will wait for pulmonary department and cardiology department for final recommendations. cc: Von Fuchs MD
--- NOTE | 2019-08-18 18:05 | PROVIDER PROGRESS NOTE ---
Progress Note Dr. Hathaway Progress Note/Pulmonary and or critical care Subjective: The patient is lying in bed on room air and tolerates well. She is having lunch. She is complaining of some RUQ and RLL tenderness,but no nausea/vomiting. She still has pleurisy secondary to cough, but she states both SOB and cough have been getting better. Objective: Vital Signs: T 97.9 (no fever in last 24 hours), AR 70, RR 16, BP 107/61 and SaO2 100% on NC 2L. Physical Examination: General: Lying in bed with no acute distress noted. Having lunch at this time. HEENT: Normocephalic. Atraumatic. Trachea midline. Mucosa pink and moist. Chest: Even and unlabored. Symmetrical excursion. Auscultation reveals inspiratory crackles bilaterally. CVS: S1 and S2 appreciated. Abdomen: Soft. Obese. Bowel sounds present in all 4 quadrants. Extremities: BLE trace edema. No cyanosis. No clubbing. Neuro: Alert and oriented x 3. Answer simple questions. Follow simple commands. Labs and Radiology: Laboratory Results 08/17/19 08/18/19 08/18/19 20:12 05:35 06:37 Sodium 133 L Potassium 4.5 Chloride 94 L Carbon Dioxide 27 Anion Gap 12 BUN 24 H Creatinine 1.2 H Estimated GFR/1.73 m2 43 BUN/Creatinine Ratio 20 Glucose 129 H POC Glucose 135 H 97 Calculated Osmolality 272 Calcium 8.5 L 08/18/19 08/18/19 10:46 15:43 Sodium Potassium Chloride Carbon Dioxide Anion Gap BUN Creatinine Estimated GFR/1.73 m2 BUN/Creatinine Ratio Glucose POC Glucose 200 H D 134 H Calculated Osmolality Calcium Assessment: Hypoxemic respiratory failure. Resolved. Pneumonia, multifocal with right pleural effusion. COVID-19 is negative. Sputum culture on 08/10/19 shows no growth. CXR this morning shows worsening pulmonary vascular congestion and pulmonary edema with stable small to moderate right basilar pleural effusion, stable dense consolidation of the right lower lobe, and trace left pleural effusion. Urinary tract infection, positive for E. Coli. Bacteremia, positive for E. Coli. Improved. Repeat blood cultures on 08/10/19 have no growth after 5 days. Encephalopathy, multifactorial. Patient has UTI, pneumonia, and bacteremia. Improved. Acute cholecystitis with cholelithiasis s/p cholecystectomy per Dr. Barrera on 08/13/19 and endoscopic retrograde cholangiopancreatography per Dr. Bailey on 08/14/19. Chronic diastolic heart failure, [place]ens[place] [id number] on 08/14/19. Acute kidney injury. Protein calorie malnutrition. Plan: Continue supplemental oxygen as needed with weaning as tolerated. Continue bronchodilators and Mucomyst. Continue antibiotic Levaquin. Continue diuresis as tolerated. Patient received IV Lasix 40 mg today. Continue DVT prophylaxis. Cardiology on board.
[2019-08-18] MEDS: LIPITOR PO SCH (20:11)
[2019-08-19] MEDS: MIRALAX PO SCH ×2 (00:17→09:38)
[2019-08-19] MEDS: HEPARIN SUBQ SCH ×3 (00:17→19:45)
[2019-08-19] MEDS: DUONEB (A & A) INH SCH ×4 (03:06→22:00)
[2019-08-19] MEDS: NORCO-7.5 PO PRN ×4 (04:02→19:47)
[2019-08-19 07:27] LABS: CALCIUM 8.8 mg/dL (8.8-10.2); CREATININE 1.3 mg/dL (0.5-0.9); POTASSIUM 4.6 mmol/L (3.5-5.1)
--- NOTE | 2019-08-19 08:36 | Diag Imaging Result Doc PS360 ---
EXAM: CHEST-PORTABLE 08/19/2019 HISTORY: SOB TECHNIQUE: AP portable upright at 0814 COMMENT: Compared to 08/18/2019 the pleural fluid collection on the right appears to have diminished slightly. There is also some improvement in the pulmonary edema which is present bilaterally. The left hemidiaphragm is more clearly visible. IMPRESSION: Improved pulmonary edema and right pleural effusion. Electronically signed by Jairo Thomas 08/19/2019 8:34 AM
[2019-08-19] MEDS: COREG PO SCH ×2 (09:38→19:45)
[2019-08-19] MEDS: SODIUM CHLORIDE 0.9% INJ SCH ×2 (09:38→19:45)
[2019-08-19] MEDS: PEPCID IV SCH ×2 (09:38→19:45)
[2019-08-19] MEDS: PERIDEX MT SCH ×2 (09:38→19:46)
[2019-08-19] MEDS: ASPIRIN PO SCH (09:38)
[2019-08-19] MEDS: LEVAQUIN 500 MG/D5W 500 MG/100 ML IVPB IV SCH (09:44)
[2019-08-19] MEDS ORDERED: LASIX PO ONE (09:56)
[2019-08-19] MEDS: MUCOMYST 20% INH SCH ×2 (10:03→22:00)
--- NOTE | 2019-08-19 13:24 | PROGRESS NOTE ---
DATE: 08/19/2019 SUBJECTIVE: The patient seems to be feeling better. She still has some shortness of breath. I gave her Lasix yesterday and it looks like it worked for her. I discussed the case with the cardiology department and Dr. Henderson will see her today. He has requested to put this patient on Lasix 40 daily p.o. to see how she does. OBJECTIVE: Vital Signs: Temperature 98.1 degrees, pulse 62, respiratory rate 18, blood pressure 137/84, oxygen saturation 99 on 2 L of nasal cannula. HEENT: Head normocephalic. No trauma. PERRLA. Neck: Supple. No JVD. No masses. Central trachea. Chest: Decreased breath sounds at the bases with mild crackles. Cardiovascular: RRR. Abdomen: Soft. Some tenderness to palpation, especially at the level of the right upper quadrant. Her wounds are fine. No signs of infection. They are healing good. Extremities: No edema, no clubbing, no cyanosis. Neurological Examination: The patient is awake and alert. She is oriented. She is following commands. She does have generalized weakness. Laboratory: Sodium 133, potassium 4.6, chloride 95, bicarbonate 30, BUN 23, creatinine 1.3, glucose 128, calcium 8.8. ASSESSMENT AND PLAN: 1. Sepsis on presentation secondary to multifocal pneumonia, Escherichia coli urinary tract infection complicated with bacteremia. New blood cultures are negative. She is still on levofloxacin and hopefully, she will be discharged on oral treatment. Her Escherichia coli is sensitive to this medication. 2. Altered mental status secondary to infectious encephalopathy, resolved. 3. History of coronary artery disease. No chest pain at this moment. Cardiology department on board. 4. Pulmonary edema. She has been placed on some diuretics. A stress test done on 06/04/2019 did not show any reduction of the ejection fraction. Cardiology department on board. 5. Bacteremia, as per #1. 6. Multifocal pneumonia, as per #1. 7. Escherichia coli urinary tract infection. Continue with antibiotics. 8. Type 2 diabetes. Continue with the same management. 9. Cholelithiasis, status post laparoscopic cholecystectomy and also endoscopic retrograde cholangiopancreatography done a few days ago with sphincterectomy, stone removal, and placement of a stent by Dr. Bailey. She will need to follow up with Dr. Bailey in 4 to 5 weeks to remove the stent. 10. The patient will be re-evaluated today by cardiology department. I have placed this patient on Lasix 40 by mouth and the case has been discussed with Dr. Henderson. Hopefully, this patient can be discharged in the afternoon or tomorrow morning. cc: Von Fuchs MD
[2019-08-19] MEDS: IMDUR PO SCH (15:58)
--- NOTE | 2019-08-19 17:16 | PROVIDER PROGRESS NOTE ---
Progress Note Dr. Hathaway Progress Note/Pulmonary and or critical care Subjective: The patient is lying in bed on NC 2L and tolerates well. She is having lunch. She complains of some bilateral upper quadrant or bilateral lower lung zones soreness and nausea, but no vomiting. She states both SOB and cough have been continuously getting better. Objective: Vital Signs: T 98.1 (no fever in last 24 hours), CA 69, RR 18, BP 140/82 and SaO2 100% on NC 2L. Physical Examination: General: Pleasant and cooperative. Lying in bed with no acute distress noted. Having lunch at this time. HEENT: Normocephalic. Atraumatic. Trachea midline. Mucosa pink and moist. Chest: Even and unlabored. Symmetrical excursion. Auscultation reveals stable inspiratory crackles bilaterally. CVS: S1 and S2 appreciated. Abdomen: Soft. Obese. Bowel sounds present in all 4 quadrants. Extremities: BLE trace edema. No cyanosis. No clubbing. Neuro: Alert and oriented x 3. Answer simple questions. Follow simple commands. Labs and Radiology: Laboratory Results 08/18/19 08/19/19 08/19/19 20:49 06:19 06:28 Sodium 133 L Potassium 4.6 Chloride 95 L Carbon Dioxide 30 Anion Gap 8 BUN 23 H Creatinine 1.3 H Estimated GFR/1.73 m2 39 BUN/Creatinine Ratio 18 Glucose 128 H POC Glucose 197 H 118 H Calculated Osmolality 272 Calcium 8.8 08/19/19 08/19/19 12:00 14:55 Sodium Potassium Chloride Carbon Dioxide Anion Gap BUN Creatinine Estimated GFR/1.73 m2 BUN/Creatinine Ratio Glucose POC Glucose 165 H 129 H Calculated Osmolality Calcium Assessment: Hypoxemic respiratory failure. Resolved. Pneumonia, multifocal with right pleural effusion. COVID-19 is negative. Sputum culture on 08/10/19 shows no growth. CXR this morning shows improved pulmonary edema and right pleural effusion. Urinary tract infection, positive for E. Coli. Bacteremia, positive for E. Coli. Improved. Repeat blood cultures on 08/10/19 have no growth after 5 days. Encephalopathy, multifactorial. Patient has UTI, pneumonia, and bacteremia. Improved. Acute cholecystitis with cholelithiasis s/p cholecystectomy per Dr. Barrera on 08/13/19 and endoscopic retrograde cholangiopancreatography per Dr. Bailey on 08/14/19. Chronic diastolic heart failure, [place]ens[place] [id number] on 08/14/19. Acute kidney injury. Protein calorie malnutrition. Improving appetite. Plan: Continue supplemental oxygen as needed with weaning as tolerated. Continue bronchodilators and Mucomyst. Continue antibiotic Levaquin. Continue diuresis as tolerated. Lasix 40 mg PO daily starts. Continue DVT prophylaxis. Encourage deep breathing. Continue PT. We started Incentive spirometer routine and chest PT routine. Discharge planning.
[2019-08-19] MEDS: LIPITOR PO SCH (19:45)
[2019-08-20] MEDS: COREG PO SCH ×2 (00:23→08:45)
[2019-08-20] MEDS: HEPARIN SUBQ SCH (00:23)
[2019-08-20] MEDS: PERIDEX MT SCH ×2 (00:23→08:48)
[2019-08-20] MEDS: LIPITOR PO SCH (00:24)
[2019-08-20] MEDS: PEPCID IV SCH ×2 (00:24→08:46)
[2019-08-20] MEDS: MIRALAX PO SCH ×2 (00:24→08:45)
[2019-08-20] MEDS: NORCO-7.5 PO PRN ×2 (01:09→08:46)
[2019-08-20] MEDS: DUONEB (A & A) INH SCH ×2 (03:31→09:37)
[2019-08-20 07:35] LABS: CALCIUM 8.9 mg/dL (8.8-10.2); CREATININE 1.4 mg/dL (0.5-0.9); POTASSIUM 4.3 mmol/L (3.5-5.1)
[2019-08-20] MEDS: IMDUR PO SCH (08:45)
[2019-08-20] MEDS: VITAMIN D PO SCH (08:45)
[2019-08-20] MEDS: ASPIRIN PO SCH (08:46)
[2019-08-20] MEDS: SODIUM CHLORIDE 0.9% INJ SCH (08:46)
[2019-08-20] MEDS: LEVAQUIN 500 MG/D5W 500 MG/100 ML IVPB IV SCH (08:47)
--- NOTE | 2019-08-20 08:55 | DISCHARGE SUMMARY ---
ADMISSION DATE: 08/08/2019 DISCHARGE DATE: 08/20/2019 ADMISSION DIAGNOSES: 1. Multifocal pneumonia. 2. Suspected Coronavirus Disease 2019. 3. Sepsis, secondary to multifocal pneumonia. 4. Acute encephalopathy secondary to benzodiazepine and opioid overdose. 5. Possible cholecystitis with multiple gallstones. 6. Acute kidney injury. 7. Troponinemia. 8. Transaminitis. 9. Diabetes mellitus. 10. Hypertension. 11. Chronic kidney disease. 12. Chronic diastolic failure. DISCHARGE DIAGNOSES: 1. Sepsis secondary to multifocal pneumonia. 2. Escherichia coli urinary tract infection complicated with bacteremia with negative blood cultures on 08/10/2019. 3. Altered mental status secondary to infectious encephalopathy, resolved. 4. History of coronary artery disease. 5. Pulmonary edema, resolved. 6. Bacteremia as per #1. 7. Escherichia coli urinary tract infection. 8. Diabetes mellitus type 2. 9. Cholelithiasis status post laparoscopic cholecystectomy with endoscopic retrograde cholangiopancreatography with sphincterotomy, stone removal and placement of a stent by Dr. Bailey. CONSULTANTS: 1. Dr. Julius Barrera. 2. Dr. Hedy Hathaway. 3. Dr. Mauricio Day. HOSPITAL COURSE: Ms. Butler presented to the emergency room with malaise, lethargy, cough, and altered mental status. She was ultimately found to have multifocal pneumonia. Cultures revealed E coli bacteremia as well as E coli UTI, for which she was covered with broad- spectrum antibiotics. Repeat cultures on August 09 revealed no growth x2 cultures. On August 10, she was started on Zosyn and Rocephin 2 g every 24 hours, and on the she was switched to Levaquin, which she will continue on discharge. She has remained afebrile. She was evaluated by General Surgery for cholecystitis, and on August 11 she underwent laparoscopic cholecystectomy with operative cholangiogram. On August 13, she underwent ERCP with sphincterotomy stone extraction, and a stent placement per Dr. Bailey, which she did tolerate both well. She has been tolerating a soft diet. She was followed by Gastroenterology throughout the hospitalization. Pulmonary was consulted for shortness of breath. They did follow throughout the hospitalization. She did experience fluid overload for which she was given IV diuretics and she responded well. Cardiology was consulted for diastolic heart failure, volume overload. Medications were readjusted. Cardiology did okay the patient to go to rehab today. DIAGNOSTICS: 1. 08/08/2019: Chest x-ray revealed low lung volumes, nonspecific hazy atelectasis or infiltrate in the right lung base. 2. 08/08/2019: CT of the chest, abdomen, and pelvis revealed extensive multifocal infiltrates concerning for pneumonia or viral infection, right hemidiaphragm elevation, multiple compression to fractures throughout the thoracic spine, numerous stones in the gallbladder. Gallbladder is distended with severe diverticulosis coli. 3. 08/10/2019: Chest x-ray revealed mild interval worsening with a small right pleural effusion. 4. 08/13/2019: HIDA scan revealed nonfilling of the gallbladder, which can indicate acute cholecystitis. However, chronic cholecystitis, nonfasting or prolonged fasting can also have this affect. 5. Operative cholangiogram revealed a large filling defect in the distal common bile duct consistent with stone. 6. 08/13/2019: Chest x-ray revealed worsened pulmonary edema and/or pneumonia with subsegmental atelectasis, particularly in the right lower lobe. 7. 08/14/2019: ERCP was performed with a biliary stent placed. 8. 08/15/2019: Chest x-ray revealed pleural effusions, cardiomegaly and pulmonary edema, atelectasis particularly in the right base. 9. 08/17/2019: Chest x-ray revealed poor inspiratory effort, small moderate size right pleural effusion with basilar atelectasis and possible underlying infiltrates with mild vascular distention persisting. 10. 08/17/2019: Chest ultrasound revealed a small right pleural effusion with the largest pocket being 8 x 2 cm, which Radiology felt was too small to drain. 11. 08/18/2019: Chest x-ray revealed worsening pulmonary vascular congestion and pulmonary edema. 12. 08/19/2019: Chest x-ray revealed improved pulmonary edema and right pleural effusion. MICROBIOLOGY: 1. Blood cultures on 08/08/2019 revealed E coli. 2. Urine culture 08/08/2019 revealed E coli. 3. 08/10/2019: Blood cultures x2 revealed no growth. 4. 08/10/2019: Sputum culture revealed no bacteria seen. DISCHARGE VITAL SIGNS: Blood pressure is 122/57 with heart rate of 73, respirations 20, temperature is 98.1 degrees oral with O2 saturations that were 97 percent on 2 L nasal cannula, it looks like 91 to 95 percent on room air. DISCHARGE PHYSICAL EXAMINATION: Cardiovascular: Regular rate and rhythm. S1 and S2 are appreciated. Pulmonary: She has some mild bibasilar crackles. Chest rises and falls symmetric with respiration. Gastrointestinal: Abdomen is soft, nondistended. She does have some tenderness at the right upper quadrant. Incisions are clear and intact. Neurologic: She is alert and oriented. DISCHARGE MEDICATIONS: 1. MiraLAX 17 g p.o. b.i.d. 2. Levaquin 500 mg p.o. daily for 32 days to complete 6 weeks of treatment as the patient did have E coli bacteremia within a patient containing metal secondary to hip replacement, back surgery and a biliary stent. 3. Imdur 30 mg p.o. daily. 4. [place] 7.5 q. 4 hours p.r.n. pain. 5. Mucinex 600 mg p.o. q. 12 hours p.r.n. 6. Lasix 40 mg p.o. daily. 7. Lipitor 40 mg p.o. at bedtime. 8. DuoNebs q. 2 hours p.r.n. wheezing. 9. Ativan 0.5 mg p.o., 1 tablet in the morning and 2 tablets at hour of sleep. 10. Carvedilol 12.5 p.o. q. 12 hours. 11. Lipitor 40 mg. 12. Aspirin 81 mg p.o. daily. FOLLOW-UP: 1. Dr. Julius Barrera 09/02/2019 at 8:[address] Bobbi Bailey 09/16/[address] Hathaway--she is to follow up in 1 month. She is to call for an appointment. 4. Dr. Henderson. She is to follow up in 3 weeks. They need to call to schedule an appointment. 5. Amanda Barnes NP, with Infectious Disease. They need to call to schedule an appointment to be seen in 3 weeks. She is being discharged in transfer to rehab in stable condition. TIME SPENT: This is a greater than 30 minute discharge. Dictated by SHEREE Christensen for Von Fuchs MD cc: SHEREE Christensen MD [facility]
[2019-08-20] MEDS ORDERED: LASIX PO SCH (09:00)
[2019-08-20] MEDS: MUCOMYST 20% INH SCH (09:37)
[2019-08-20 11:30] VITALS: BP 133/65
--- NOTE | 2019-08-20 16:58 | PROVIDER PROGRESS NOTE ---
Progress Note Dr. Hathaway Progress Note/Pulmonary and or critical care Subjective: The patient is lying in bed with no acute distress noted. She has been on room air since last night and tolerates well. She states she is feeling better. She reports nausea this morning which is resolved at this time, but she has no appetite currently for her lunch. She reports occasional cough with production and SOB at times which has been improved. she still has some soreness on bilateral lower chest areas and bilateral upper abdominal quadrants. Objective: Vital Signs: T 98.1 (no fever in last 24 hours), IN 69, RR 18, BP 140/82 and SaO2 100% on room air. Physical Examination: General: Pleasant and cooperative. Lying in bed with no acute distress noted. Having poor appetite for her lunch at this time. HEENT: Normocephalic. Atraumatic. Trachea midline. Mucosa pink and moist. Chest: Even and unlabored. Symmetrical excursion. Auscultation reveals improving inspiratory crackles bilaterally. CVS: S1 and S2 appreciated. Abdomen: Soft. Obese. Bowel sounds present in all 4 quadrants. Extremities: BLE trace edema. No cyanosis. No clubbing. Neuro: Alert and oriented x 3. Answer simple questions. Follow simple commands. Labs and Radiology: Laboratory Results 08/19/19 08/20/19 08/20/19 20:33 06:20 06:30 Sodium 132 L Potassium 4.3 Chloride 93 L Carbon Dioxide 29 Anion Gap 10 BUN 24 H Creatinine 1.4 H Estimated GFR/1.73 m2 36 BUN/Creatinine Ratio 17 Glucose 127 H POC Glucose 145 H 118 H Calculated Osmolality 270 Calcium 8.9 08/20/19 10:33 Sodium Potassium Chloride Carbon Dioxide Anion Gap BUN Creatinine Estimated GFR/1.73 m2 BUN/Creatinine Ratio Glucose POC Glucose 214 H D Calculated Osmolality Calcium Assessment: Hypoxemic respiratory failure. Resolved. Pneumonia, multifocal with right pleural effusion. COVID-19 is negative. Sputum culture on 08/10/19 shows no growth. CXR this morning shows improved pulmonary edema and right pleural effusion. Urinary tract infection, positive for E. Coli. Bacteremia, positive for E. Coli. Improved. Repeat blood cultures on 08/10/19 have no growth after 5 days. Encephalopathy, multifactorial. Patient has UTI, pneumonia, and bacteremia. Improved. Acute cholecystitis with cholelithiasis s/p cholecystectomy per Dr. Barrera on and endoscopic retrograde cholangiopancreatography per Dr. Bailey on 08/14/19. Chronic diastolic heart failure, uncompensated [place] [id number] on 08/14/19. Acute kidney injury. Protein calorie malnutrition. Improving appetite. Plan: Continue supplemental oxygen as needed with weaning as tolerated. Continue bronchodilators and Mucomyst. Continue antibiotic Levaquin. Continue diuresis as tolerated. Continue DVT prophylaxis. Encourage deep breathing. Continue PT. We started Incentive spirometer routine and chest PT routine. Rehab placement planning today.
== END 2019-08-20 14:13 | DRG 853 ==
LOC: SUPCPDRO → ED 13:54 → SUATTDRO 21:29 → 4N 08-09 00:03
PROVIDERS: ATTEND Internal Medicine
PROC: EN.ERCP (2019-08-14 11:40)